=== PATIENT | female | born 1995 | race Caucasian/White ===

== ENCOUNTER 2019-11-02 14:20 | Outpatient (CLI) | payer MEDICARE, SELFPAY ==
[2019-11-02 15:09] LABS: Alanine Aminotransferase 19 U/L (14-59); Albumin Level 3.3 g/dL (3.4-5.0); Alkaline Phosphatase 86 U/L (46-116); Anion Gap 14.4 mmol/L (7-16); Aspartate Amino Transferase 15 U/L (15-37); Bilirubin,Total 0.2 mg/dL (0.00-1.00); Blood Urea Nitrogen 11 mg/dL (7-18); Calcium 9.1 mg/dL (8.5-10.1); Carbon Dioxide 25 mmol/L (21-32); Chloride 104 mmol/L (98-108); Estimated Glomerular Filt Rate > 60; Glucose 162 mg/dL (70-99); Osmolality Calculated 293 mOsm/kg (285-295); Potassium 3.4 mmol/L (3.5-5.1); Sodium 140 mmol/L (136-145); Total Protein 7.8 g/dL (6.4-8.2)
[2019-11-05 13:43] LABS: Beta HCG Quantitative < 1.00 mIU/mL (0-6)
== END 2019-11-02 14:21 | disposition home or self-care (01) ==
PROVIDERS: PCP Internal Medicine; Visit Provider Nurse Practitioner Family
DX: N91.2 Amenorrhea, unspecified (principal); E87.6 Hypokalemia
CPT/HCPCS: 36415; 80053; 81025; 84702

== ENCOUNTER 2019-12-07 14:02 | Outpatient (CLI) | payer MEDICARE, MEDICAID, SELFPAY ==
--- NOTE | ~2019-12-07 | US_ITS ---
EXAMINATION: US pelvic complete w TV DATE: 12/07/2019 15:24 INDICATION: Abdominal pain, weight gain. Possible . Comparison:Ultrasound dated 05/07/2016 TECHNIQUE: Multiple transabdominal and endovaginal sonographic images of the pelvis performed. FINDINGS: The uterus measures 4.7 x 2.7 x 3.8 cm. The endometrial complex measures 5 mm. No evidence for intrauterine . The right ovary measures 1.3 x 0.9 x 1.3 cm and the left ovary is not visualized. There is no free fluid in the pelvis. There are no abnormal masses seen on either side. IMPRESSION: 1. Unremarkable pelvic ultrasound. No evidence for intrauterine . There is a positive pregna ncy test, considerations include very early intrauterine , failed and ectopic preg [place]. Recommend follow-up with ultrasound and serial quantitative beta hCG levels as clinically florencia cated. Reviewed, dictated and finalized at location B. RACTIVE MEDIA DESIGNER IMPRESSION: 1. Unremarkable pelvic ultrasound. No evidence for intrauterine . Ther e is a positive test, considerations include very early intrauterine , failed and ectopic . Recommend follow-up with ult rasound and serial quantitative beta hCG levels as clinically indicated.
== END 2019-12-07 14:03 | disposition home or self-care (01) ==
LOC: CHSIMG 14:04
PROVIDERS: PCP Internal Medicine; Visit Provider Nurse Practitioner Family
DX: R10.9 Unspecified abdominal pain (principal); R63.5 Abnormal weight gain
CPT/HCPCS: 76830; 76856

== ENCOUNTER 2020-02-08 16:49 | Outpatient (CLI) | payer MEDICARE, SELFPAY ==
[2020-02-08 17:20] LABS: Hemoglobin A1C 7.8 % (<5.7)
== END 2020-02-08 16:50 | disposition home or self-care (01) ==
LOC: CHSLAB 16:53
PROVIDERS: PCP Internal Medicine
DX: E11.42 Type 2 diabetes mellitus with diabetic polyneuropathy (principal)
CPT/HCPCS: 36415; 83036

== ENCOUNTER 2020-03-24 14:47 | Outpatient (CLI) | payer MEDICARE, SELFPAY ==
[2020-03-24 14:57] LABS: Basophils Absolute Auto 0.03 K/mm3 (0.00-0.10); Basophils Percent Auto 0.4 % (0.0-1.0); Eosinophils Absolute Auto 0.15 K/mm3 (0.02-0.50); Eosinophils Percent Auto 2.1 % (1.0-6.0); Hematocrit 40.8 % (35.0-49.0); Hemoglobin 13.3 g/dL (12.0-15.0); Immature Granulocyte Absolute 0.02 K/mm3 (0.00-0.00); Immature Granulocyte Percent A 0.3 % (0.0-0.0); Immature Reticulocyte Fraction 9.6 % (2.0-16.52); Lymphocytes Absolute Auto 3.62 K/mm3 (1.10-4.50); Lymphocytes Percent Auto 51.1 % (18.0-42.0); Mean Corpuscular HGB Conc 32.6 g/dL (32.0-36.0); Mean Corpuscular Hemoglobin 26.8 pg (27.0-31.0); Mean Corpuscular Volume 82.1 fL (78.0-102.0); Mean Platelet Volume 10.5 fl (9.2-11.8); Monocytes Absolute Auto 0.53 K/mm3 (0.10-0.90); Monocytes Percent Auto 7.5 % (2.0-11.0); Neutrophils Absolute Auto 2.7 K/mm3 (1.7-7.2); Neutrophils Percent Auto 38.6 % (50.0-70.0); Platelet Count Result 224 K/mm3 (150-420); Red Blood Count 4.97 M/mm3 (4.20-5.40); Red Cell Distribution Width 15.6 % (11.6-14.4); Reticulocyte Hemoglobin Conten 33.4 pg (28.0-35.0); Reticulocyte Percent 1.36 % (0.50-1.50); Reticulocytes Absolute 0.07 M/mm3 (0.02-0.1); White Blood Count 7.1 K/mm3 (4.8-10.8)
[2020-03-24 16:01] LABS: Ferritin 22 ng/mL (8-252); Iron 56 ug/dL (50-170); Percent Iron Saturation 14 % (12-57)
== END 2020-03-24 14:48 | disposition home or self-care (01) ==
LOC: CHSLAB 14:48
PROVIDERS: PCP Internal Medicine; Visit Provider Internal Medicine
DX: E61.1 Iron deficiency (principal)
CPT/HCPCS: 36415; 82728; 83540; 83550; 85025; 85046

== ENCOUNTER 2020-04-15 15:04 | Outpatient (CLI) | payer MEDICARE, SELFPAY ==
[2020-04-15 15:22] LABS: Basophils Absolute Auto 0.02 K/mm3 (0.00-0.10); Basophils Percent Auto 0.3 % (0.0-1.0); Eosinophils Absolute Auto 0.21 K/mm3 (0.02-0.50); Eosinophils Percent Auto 3.3 % (1.0-6.0); Hematocrit 41.3 % (35.0-49.0); Hemoglobin 13.3 g/dL (12.0-15.0); Immature Granulocyte Absolute 0.02 K/mm3 (0.00-0.00); Immature Granulocyte Percent A 0.3 % (0.0-0.0); Lymphocytes Percent Auto 50.6 % (18.0-42.0); Mean Corpuscular HGB Conc 32.2 g/dL (32.0-36.0); Mean Corpuscular Hemoglobin 26.7 pg (27.0-31.0); Mean Corpuscular Volume 82.9 fL (78.0-102.0); Mean Platelet Volume 10.4 fl (9.2-11.8); Monocytes Absolute Auto 0.54 K/mm3 (0.10-0.90); Monocytes Percent Auto 8.5 % (2.0-11.0); Neutrophils Absolute Auto 2.3 K/mm3 (1.7-7.2); Platelet Count Result 270 K/mm3 (150-420); Red Blood Count 4.98 M/mm3 (4.20-5.40); Red Cell Distribution Width 15.1 % (11.6-14.4); White Blood Count 6.3 K/mm3 (4.8-10.8)
[2020-04-15 16:20] LABS: Beta HCG Quantitative < 1.00 mIU/mL (0-6)
== END 2020-04-15 15:05 | disposition home or self-care (01) ==
LOC: CHSLAB 15:05
PROVIDERS: PCP Internal Medicine; Visit Provider Internal Medicine
DX: D64.9 Anemia, unspecified (principal); R63.5 Abnormal weight gain; Z34.00 Encounter for supervision of normal first pregnancy, unspecified trimester
CPT/HCPCS: 36415; 84702; 85025

== ENCOUNTER 2020-06-12 13:49 | Outpatient (CLI) | payer MEDICARE, SELFPAY ==
[2020-06-12 14:00] LABS: Hematocrit 42.8 % (35.0-49.0); Hemoglobin 13.5 g/dL (12.0-15.0)
== END 2020-06-12 13:50 | disposition home or self-care (01) ==
LOC: CHSLAB 13:51
PROVIDERS: PCP Internal Medicine; Visit Provider Internal Medicine
DX: R53.83 Other fatigue (principal); D64.9 Anemia, unspecified
CPT/HCPCS: 36415; 85014; 85018

== ENCOUNTER 2020-11-26 15:19 | Outpatient (CLI) | payer MEDICARE, SELFPAY ==
[2020-11-26 15:37] LABS: Basophils Absolute Auto 0.02 K/mm3 (0.00-0.10); Basophils Percent Auto 0.3 % (0.0-1.0); Eosinophils Absolute Auto 0.11 K/mm3 (0.02-0.50); Eosinophils Percent Auto 1.7 % (1.0-6.0); Hematocrit 41.6 % (35.0-49.0); Hemoglobin 13.1 g/dL (12.0-15.0); Immature Granulocyte Absolute 0.02 K/mm3 (0.00-0.00); Immature Granulocyte Percent A 0.3 % (0.0-0.0); Lymphocytes Absolute Auto 2.38 K/mm3 (1.10-4.50); Lymphocytes Percent Auto 37.4 % (18.0-42.0); Mean Corpuscular HGB Conc 31.5 g/dL (32.0-36.0); Mean Corpuscular Hemoglobin 27.2 pg (27.0-31.0); Mean Corpuscular Volume 86.3 fL (78.0-102.0); Mean Platelet Volume 10.3 fl (9.2-11.8); Monocytes Absolute Auto 0.42 K/mm3 (0.10-0.90); Monocytes Percent Auto 6.6 % (2.0-11.0); Neutrophils Absolute Auto 3.4 K/mm3 (1.7-7.2); Neutrophils Percent Auto 53.7 % (50.0-70.0); Platelet Count Result 241 K/mm3 (150-420); Red Blood Count 4.82 M/mm3 (4.20-5.40); Red Cell Distribution Width 13.9 % (11.6-14.4); White Blood Count 6.4 K/mm3 (4.8-10.8)
[2020-11-26 15:45] LABS: Hemoglobin A1C 6.8 % (<5.7)
[2020-11-26 15:49] LABS: Add Urine Microscopic? YES; Appearance Urine Cloudy (Clear); Bilirubin Urine Negative (Negative); Blood Urine 3+ (Negative); Color Urine Yellow (Yellow); Glucose Urine UA Negative (Negative); Ketones Urine Negative (Negative); Leukocyte Esterase Ur 1+ (Negative); Nitrate Urine Negative (Negative); Protein Urine Negative (Negative); Specific Grav Ur >= 1.030 (1.010-1.020); Urobilinogen Urine 0.2 mg/dL (0.2-1.0); pH Urine 5.5 (5.0-8.0)
[2020-11-26 15:57] LABS: Creatinine Urine 266.61 mg/dL (40-278); MALB Creatinine Ratio 12.1 mg/g (0-30); Microalbumin Urine Random 32.3 mg/L
[2020-11-26 16:01] LABS: WBC Clumps Urine Present /hpf; WBC Urine 16-20 /hpf (0-3)
[2020-11-26 16:02] LABS: Bacteria Urine 4+ /hpf; Squamous Epithelial Cell Urine Many /hpf (Few)
[2020-11-26 17:10] LABS: Alanine Aminotransferase 23 U/L (14-59); Albumin Level 3.4 g/dL (3.4-5.0); Alkaline Phosphatase 99 U/L (46-116); Anion Gap 11 mmol/L (8-16); Aspartate Amino Transferase 12 U/L (15-37); Bilirubin,Total 0.2 mg/dL (0.00-1.00); Blood Urea Nitrogen 10 mg/dL (7-18); Calcium 9.5 mg/dL (8.5-10.1); Carbon Dioxide 25 mmol/L (21-32); Chloride 102 mmol/L (98-108); Estimated Glomerular Filt Rate > 60; Glucose 115 mg/dL (70-99); Osmolality Calculated 286 mOsm/kg (285-295); Potassium 4.1 mmol/L (3.5-5.1); Sodium 138 mmol/L (136-145); Thyroid Stimulating Hormone 1.34 uIU/mL (0.36-3.74); Total Protein 7.7 g/dL (6.4-8.2)
== END 2020-11-26 15:20 | disposition home or self-care (01) ==
LOC: CHSLAB 15:20
PROVIDERS: PCP Internal Medicine; Visit Provider Internal Medicine
DX: E11.9 Type 2 diabetes mellitus without complications (principal); I10 Essential (primary) hypertension
CPT/HCPCS: 36415; 80053; 81001; 82043; 83036; 84443; 85025

== ENCOUNTER 2021-01-04 22:49 | Emergency (ER) | payer MEDICARE, MEDICAID, SELFPAY ==
[2021-01-04 23:18] VITALS: BP 116/77; PULSE 88; RESP 18; TEMP 36.7; O2SAT 98
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
[2021-01-04 23:54] LABS: Add Urine Microscopic? YES; Appearance Urine Cloudy (Clear); Bilirubin Urine Negative (Negative); Blood Urine Negative (Negative); Color Urine Yellow (Yellow); Glucose Urine UA Trace (Negative); Ketones Urine Negative (Negative); Leukocyte Esterase Ur 1+ (Negative); Nitrate Urine Negative (Negative); Protein Urine Trace (Negative); Specific Grav Ur 1.015 (1.010-1.020)
[2021-01-05 00:03] LABS: Amorphous Sediment Urine Moderate; Bacteria Urine Trace /hpf; RBC Urine None seen /hpf (0-2); Squamous Epithelial Cell Urine Few /hpf (Few)
[2021-01-05] MEDS: KETOROLAC 30 MG/ML VIAL (*BKC) IM (00:05)
[2021-01-05 00:28] VITALS: BP 110/78; PULSE 81; RESP 20; O2SAT 97
== END 2021-01-05 00:30 | disposition home or self-care (01) ==
PROVIDERS: Emergency Provider Family Medicine; PCP Internal Medicine
DX: S30.1XXA Contusion of abdominal wall, initial encounter (principal); W50.1XXA Accidental kick by another person, initial encounter
CPT/HCPCS: 81001; 96372; 99283; J1885

== ENCOUNTER 2021-02-23 13:58 | Outpatient (CLI) | payer MEDICARE, SELFPAY | END 2021-02-23 13:59 | disposition home or self-care (01) | LOC: CHSLAB 14:00 | PROVIDERS: PCP Internal Medicine; Visit Provider Internal Medicine | DX: E11.9 Type 2 diabetes mellitus without complications (principal) | CPT/HCPCS: 36415; 83036 ==

== ENCOUNTER 2021-05-26 12:17 | Outpatient (CLI) | payer MEDICARE, SELFPAY ==
[2021-05-26 12:48] LABS: Creatinine Urine 255.11 mg/dL (40-278); Hemoglobin A1C 7.4 % (<5.7); MALB Creatinine Ratio 5.6 mg/g (0-30); Microalbumin Urine Random 14.3 mg/L
[2021-05-26 13:49] LABS: Alanine Aminotransferase 14 U/L (14-59); Albumin Level 3.4 g/dL (3.4-5.0); Alkaline Phosphatase 95 U/L (46-116); Anion Gap 10 mmol/L (8-16); Aspartate Amino Transferase 15 U/L (15-37); Bilirubin,Total 0.2 mg/dL (0.00-1.00); Blood Urea Nitrogen 10 mg/dL (7-18); Calcium 9.2 mg/dL (8.5-10.1); Carbon Dioxide 27 mmol/L (21-32); Chloride 101 mmol/L (98-108); Cholesterol 168 mg/dL (0-200); Estimated Glomerular Filt Rate > 60; Glucose 151 mg/dL (70-99); HDL Direct 72 mg/dL (40-60); LDL Cholesterol Calculated 65 mg/dL (<130); Osmolality Calculated 288 mOsm/kg (285-295); Potassium 3.9 mmol/L (3.5-5.1); Sodium 138 mmol/L (136-145); Thyroid Stimulating Hormone 4.94 uIU/mL (0.36-3.74); Total Protein 8.4 g/dL (6.4-8.2); Triglycerides 154 mg/dL (0-150)
== END 2021-05-26 12:18 | disposition home or self-care (01) ==
LOC: CHSLAB 12:19
PROVIDERS: PCP Internal Medicine; Visit Provider Internal Medicine
DX: E11.9 Type 2 diabetes mellitus without complications (principal)
CPT/HCPCS: 36415; 80053; 80061; 82043; 83036; 84443

== ENCOUNTER 2021-07-17 15:35 | Outpatient (CLI) | payer MEDICARE, MEDICAID, SELFPAY ==
--- NOTE | ~2021-07-17 | XR_ITS ---
EXAMINATION: XR ankle LT min 3V DATE: 07/17/2021 16:13 INDICATION: Left ankle pain. TECHNIQUE: 4 views of left ankle were obtained. COMPARISON: Left ankle radiographs 10/20/2018 FINDINGS: Bone alignment is normal. No fracture. Joint spaces are well maintained. IMPRESSION: 1. Normal left ankle. Reviewed, dictated and finalized at location A. IMPRESSION: 1. Normal left ankle.
== END 2021-07-17 15:36 | disposition home or self-care (01) ==
LOC: CHSIMG 15:38
PROVIDERS: PCP Internal Medicine; Visit Provider Internal Medicine
DX: S99.912A Unspecified injury of left ankle, initial encounter (principal)
CPT/HCPCS: 73610

== ENCOUNTER 2021-08-31 07:41 | Emergency (ER) | payer MEDICARE, MEDICAID, SELFPAY ==
--- NOTE | ~2021-08-31 | XR_ITS ---
EXAMINATION: XR chest 2V 08/31/2021 08:26 INDICATION: Chest pain PROCEDURE: 2 view chest COMPARISON: Comparison to multiple prior studies sequentially, with oldest reviewed study dated 01/2014. FINDINGS: The lungs are clear. The cardiomediastinal silhouette is within normal limits. There are no pleural effusions. There is no pneumothorax suspected. IMPRESSION: 1: NO ACUTE CARDIOPULMONARY DISEASE. Reviewed, dictated and finalized at location B. MAINTENANCE
--- NOTE | 2021-08-31 07:47 | ED.CHESTPAIN ---
HPI - Chest Pain General Chief Complaint: Dizziness Stated Complaint: ambulance Source: patient, EMS and RN notes reviewed Mode of arrival: ambulatory Limitations: no limitations History of Present Illness complaint: chest pain and chest discomfort Onset (ago): hour(s) (1.5) Timing of current episode: constant Onset: during rest Pain location: substernal and left chest Pain radiation: none Severity: moderate Quality: aching and dull Relieving factors: nothing Exacerbating factors: nothing Associated symptoms: dyspnea Treatment prior to arrival: aspirin (by ems) Related Data Home Medications Medication Instructions Recorded Confirmed gabapentin 300 mg PO DAILY 08/26/19 08/26/19 levothyroxine 25 mcg PO DAILY 08/26/19 08/26/19 linagliptin [Tradjenta] 5 mg PO DAILY 08/26/19 08/26/19 metformin 500 mg PO BID 08/26/19 08/26/19 norgestimate-ethinyl estradiol 1 tablet PO DAILY 08/26/19 08/26/19 [Vxn-Ye-Congvlrq] pioglitazone 15 mg PO DAILY 08/26/19 08/26/19 ranitidine HCl 300 mg PO DAILY 08/26/19 08/26/19 topiramate 100 mg PO DAILY 08/26/19 08/26/19 Allergies Allergy/AdvReac Type Severity Reaction Status Date / Time adhesive Allergy Unknown Rash Verified 10/16/15 17:13 amoxicillin Allergy Unknown Unknown Verified 08/26/19 18:44 dexmethylphenidate Allergy Unknown aggressiven Verified 08/12/16 11:54 ess diclofenac Allergy Unknown abdominal Verified 08/12/16 11:55 pain Penicillins Allergy Unknown Unknown Verified 08/26/19 18:44 Review of Systems Review of Systems: All systems reviewed & are unremarkable except as noted in HPI and below Cardiovascular: Cardiovascular: Denies rapid heart rate Gastrointestinal: Gastrointestinal: Denies nausea and Denies vomiting Endocrine: Endocrine: Denies excessive sweating PMFSH Past Medical History Medical History (Updated 08/31/21 @ 09:17 by Manuel Medrano MD) Anxiety Depression GERD (gastroesophageal reflux disease) Hypothyroidism Morbid obesity Scoliosis Type 2 diabetes mellitus Surgical History Surgical History History of axillary surgery History of tonsillectomy Family History Family History Father Hypertension Family history of elevated blood lipids Family history of coronary artery disease Family history of type 2 diabetes mellitus Mother Hypertension Family history of elevated blood lipids Family history of type 2 diabetes mellitus Social History Social History Smoking status: Never smoker Alcohol intake: current Gender identity (if verbalized by the patient): Female Course Vital Signs Vital signs: Vital Signs Temperature 37.0 C 08/31/21 07:52 Pulse Rate 97 08/31/21 07:52 Respiratory Rate 20 08/31/21 07:52 Blood Pressure 130/83 08/31/21 07:52 Pulse Oximetry 98 08/31/21 07:52 Temperature 37.0 C 08/31/21 07:52 Pulse Rate 82 08/31/21 09:24 Respiratory Rate 16 08/31/21 09:24 Blood Pressure 116/85 08/31/21 09:24 Pulse Oximetry 98 08/31/21 09:24 MDM - Chest Pain Lab Data Attestation: I reviewed the patient's lab results. Result diagrams: 08/31/21 08:07 08/31/21 08:07 Labs: Lab Results 08/31/21 08/31/21 08/31/21 Range/Units 08:07 08:07 08:07 WBC 7.7 (4.8-10.8) K/mm3 RBC 4.51 (4.20-5.40) M/mm3 Hgb 12.4 (12.0-15.0) g/dL Hct 38.8 (35.0-49.0) % MCV 86.0 (78.0-102.0) fL MCH 27.5 (27.0-31.0) pg MCHC 32.0 (32.0-36.0) g/dL RDW 14.6 H (11.6-14.4) % Plt Count 239 (150-420) K/mm3 MPV 10.5 (9.2-11.8) fl Immature Gran % (Auto) 0.4 H (0.0-0.0) % Neut % (Auto) 38.2 L (50.0-70.0) % Lymph % (Auto) 48.3 H (18.0-42.0) % [place] % (Auto) 7.6 (2.0-11.0) % Eos % (Auto) 5.1 (1.0-6.0) % Baso % (Auto) 0.4 (0.0-1.0) % Lymph # (Auto) 3.
--- NOTE | 2021-08-31 07:48 | ECG_ITS ---
Measurements Intervals [place] Rate: 81 P: 57 MO: 137 QRS: 99 QRSD: 85 T: 0 QT: 360 QTc: 420 Interpretive Statements SINUS RHYTHM RIGHT AXIS DEVIATION BORDERLINE ST-T WAVE ABNORMALITY- INFERIOR LEADS BORDERLINE ECG Electronically Signed On 08-31-2021 8:24:42 CAR USHER by Noel Sanz D.O.
[2021-08-31 07:52] VITALS: BP 130/83; PULSE 97; RESP 20; TEMP 37; O2SAT 98
--- NOTE | 2021-08-31 08:01 | PC.NURSE ---
Lab notified of orders for blood work.
[2021-08-31 08:13] LABS: Basophils Absolute Auto 0.03 K/mm3 (0.00-0.10); Basophils Percent Auto 0.4 % (0.0-1.0); Eosinophils Absolute Auto 0.39 K/mm3 (0.02-0.50); Eosinophils Percent Auto 5.1 % (1.0-6.0); Hematocrit 38.8 % (35.0-49.0); Hemoglobin 12.4 g/dL (12.0-15.0); Immature Granulocyte Absolute 0.03 K/mm3 (0.00-0.00); Immature Granulocyte Percent A 0.4 % (0.0-0.0); Lymphocytes Absolute Auto 3.73 K/mm3 (1.10-4.50); Lymphocytes Percent Auto 48.3 % (18.0-42.0); Mean Corpuscular Hemoglobin 27.5 pg (27.0-31.0); Mean Platelet Volume 10.5 fl (9.2-11.8); Monocytes Absolute Auto 0.59 K/mm3 (0.10-0.90); Monocytes Percent Auto 7.6 % (2.0-11.0); Neutrophils Percent Auto 38.2 % (50.0-70.0); Platelet Count Result 239 K/mm3 (150-420); Red Blood Count 4.51 M/mm3 (4.20-5.40); Red Cell Distribution Width 14.6 % (11.6-14.4); White Blood Count 7.7 K/mm3 (4.8-10.8)
[2021-08-31 08:14] VITALS: BP 109/71; PULSE 80; RESP 16; O2SAT 100
[2021-08-31 08:26] LABS: Prothrombin Time 10.9 Seconds (9.50-12.10)
[2021-08-31 08:32] LABS: Alanine Aminotransferase 27 U/L (14-59); Albumin Level 2.9 g/dL (3.4-5.0); Alkaline Phosphatase 81 U/L (46-116); Anion Gap 13 mmol/L (8-16); Aspartate Amino Transferase 19 U/L (15-37); Bilirubin,Total 0.2 mg/dL (0.00-1.00); Blood Urea Nitrogen 12 mg/dL (7-18); Calcium 8.6 mg/dL (8.5-10.1); Carbon Dioxide 24 mmol/L (21-32); Chloride 104 mmol/L (98-108); Estimated CRCL calculation 102 ml/min; Estimated Glomerular Filt Rate 60; Glucose 108 mg/dL (70-99); Osmolality Calculated 292 mOsm/kg (285-295); Potassium 2.9 mmol/L (3.5-5.1); Sodium 141 mmol/L (136-145); Total Protein 7.2 g/dL (6.4-8.2); Troponin I 5.1 ng/L (0.00-60.4)
[2021-08-31 09:23] LABS: Glucose Point of Care 92 mg/dl (65-105)
[2021-08-31 09:24] VITALS: BP 116/85; PULSE 82; RESP 16; O2SAT 98
== END 2021-08-31 09:32 | disposition home or self-care (01) ==
PROVIDERS: Emergency Provider Emergency Medicine; PCP Internal Medicine
DX: R07.89 Other chest pain (principal); E87.6 Hypokalemia; K21.9 Gastro-esophageal reflux disease without esophagitis; E03.9 Hypothyroidism, unspecified; E11.9 Type 2 diabetes mellitus without complications
CPT/HCPCS: 36415; 71046; 80053; 82948; 84484; 85025; 85610; 93005; 99283; 99284; A9270

== ENCOUNTER 2021-11-20 15:34 | Outpatient (CLI) | payer MEDICARE, SELFPAY ==
[2021-11-20 16:27] LABS: Hemoglobin A1C 7.1 % (<5.7)
[2021-11-20 16:40] LABS: Alanine Aminotransferase 23 U/L (14-59); Albumin Level 3.4 g/dL (3.4-5.0); Alkaline Phosphatase 86 U/L (46-116); Anion Gap 11 mmol/L (8-16); Aspartate Amino Transferase 25 U/L (15-37); Bilirubin,Total 0.3 mg/dL (0.00-1.00); Blood Urea Nitrogen 12 mg/dL (7-18); Calcium 9.1 mg/dL (8.5-10.1); Carbon Dioxide 26 mmol/L (21-32); Chloride 100 mmol/L (98-108); Estimated Glomerular Filt Rate > 60; Glucose 155 mg/dL (70-99); Osmolality Calculated 286 mOsm/kg (285-295); Potassium 3.6 mmol/L (3.5-5.1); Sodium 137 mmol/L (136-145); Total Protein 8.3 g/dL (6.4-8.2)
== END 2021-11-20 15:35 | disposition home or self-care (01) ==
LOC: CHSLAB 15:36
PROVIDERS: PCP Internal Medicine; Visit Provider Internal Medicine
DX: E11.9 Type 2 diabetes mellitus without complications (principal)
CPT/HCPCS: 36415; 80053; 83036

== ENCOUNTER 2021-12-29 04:59 | Emergency (ER) | payer MEDICARE, MEDICAID, SELFPAY ==
--- NOTE | ~2021-12-29 | CT_ITS ---
EXAMINATION: CTA chest PE protocol DATE: 12/29/2021 07:16 INDICATION: Shortness of breath. Anterior central left chest pain TECHNIQUE: Computed tomography (CT) pulmonary angiogram of the chest was performed with 100 mL Omnipa que-350 intravenous contrast. Additional 3D reconstructions utilizing coronal maximum intensity proje ction (MIP) were performed. Automated exposure control and iterative reconstruction technique were em ployed. The dose-length product was 734.13 mGy-cm. COMPARISON: None FINDINGS: Excellent contrast opacification of the pulmonary arteries. There is mild streak artifact from dense contrast in the superior vena cava and right atrium. No significant motion artifact yielding diagnost ic quality study which demonstrates no pulmonary embolism. Mild peripherally emphysematous changes in the posterior lower lobes. No pneumonia, pulmonary edema, pleural effusion or pneumothorax. Heart si ze is normal. No pericardial effusion. Thoracic aorta is normal in caliber with no dissection. No pat hologically enlarged thoracic lymphadenopathy. Diffuse hepatic steatosis. Thoracic dextroscoliosis. IMPRESSION: 1. No pulmonary embolism or other acute cardiopulmonary disease. 2. Mild emphysematous changes in the bilateral posterior lower lobes which given patient age, lack of smoking history and atypical distribution could be related to asthma, sequela of prior infection or alpha-1 antitrypsin deficiency. Reviewed, dictated and finalized at location A. IMPRESSION: 1. No pulmonary embolism or other acute cardiopulmonary disease. 2. Mild emphysematous changes in the bilateral posterior lower lobes which give n patient age, lack of smoking history and atypical distribution could be relat ed to asthma, sequela of prior infection or alpha-1 antitrypsin deficiency.
[2021-12-29 04:59] VITALS: BP 139/107; PULSE 96; RESP 20; TEMP 36; O2SAT 100
--- NOTE | 2021-12-29 05:11 | ECG_ITS ---
Measurements Intervals [place] Rate: 83 P: 45 IN: 132 QRS: 56 QRSD: 84 T: 6 QT: 343 QTc: 405 Interpretive Statements SINUS RHYTHM NORMAL ECG COMPARED TO ECG 08/31/2021 07:52:34 NO SIGNIFICANT CHANGES Electronically Signed On 12-29-2021 17:45:38 CDT by Ab Welch M.D.
--- NOTE | 2021-12-29 05:21 | ED.CHESTPAIN ---
HPI - Chest Pain General Chief Complaint: Chest Pain <Ab Gardner MD - Last Filed: 12/29/21 07:01> Stated Complaint: SICKNESS <Ab Gardner MD - Last Filed: 12/29/21 07:01> Time Seen by Provider: 12/29/21 05:21 <Ab Gardner MD - Last Filed: 12/29/21 07:01> Source: patient and EMS <Ab Gardner MD - Last Filed: 12/29/21 07:01> Mode of arrival: EMS <Ab Gardner MD - Last Filed: 12/29/21 07:01> Limitations: no limitations <Ab Gardner MD - Last Filed: 12/29/21 07:01> History of Present Illness HPI narrative: this is a 26-year-old female with history of diabetes currently on control nonsmoker has a family history of heart attack in her father, presents with chest pain mid sternum states that radiates into her left arm, that she describes as being 8/10, with some shortness of breath with no diaphoresis no nausea vomiting no history of heart disease. Patient has no abdominal pain no dysuria no flank pain no lower back pain. <Ab Gardner MD - Last Filed: 12/29/21 07:01> MD complaint: chest pain <Ab Gardner MD - Last Filed: 12/29/21 07:01> Onset (ago): hour(s) <Ab Gardner MD - Last Filed: 12/29/21 07:01> Timing of current episode: constant <Ab Gardner MD - Last Filed: 12/29/21 07:01> Prior episodes: No <Ab Gardner MD - Last Filed: 12/29/21 07:01> Onset: during rest <Ab Gardner MD - Last Filed: 12/29/21 07:01> Pain location: substernal <Ab Gardner MD - Last Filed: 12/29/21 07:01> Pain radiation: left arm <Ab Gardner MD - Last Filed: 12/29/21 07:01> Severity: mild <Ab Gardner MD - Last Filed: 12/29/21 07:01> Quality: aching <Ab Gardner MD - Last Filed: 12/29/21 07:01> Associated symptoms: dyspnea <Ab Gardner MD - Last Filed: 12/29/21 07:01> Related Data Home Medications: Home Medications Medication Instructions Recorded Confirmed gabapentin 300 mg PO DAILY 08/26/19 12/29/21 levothyroxine 25 mcg PO DAILY 08/26/19 12/29/21 linagliptin [Tradjenta] 5 mg PO DAILY 08/26/19 12/29/21 metformin 500 mg PO BID 08/26/19 12/29/21 pioglitazone 15 mg PO DAILY 08/26/19 12/29/21 topiramate 100 mg PO DAILY 08/26/19 12/29/21 norgestimate-ethinyl estradiol See Rx Instructions .ROUTE .COMPLEX 12/29/21 12/29/21 [[id number]-[id number]] <Ab Gardner MD - Last Filed: 12/29/21 07:01> Allergies/Adverse Reactions: Allergies Allergy/AdvReac Type Severity Reaction Status Date / Time adhesive Allergy Unknown Rash Verified 12/29/21 05:54 amoxicillin Allergy Unknown Rash Verified 12/29/21 05:54 dexmethylphenidate Allergy Unknown aggressiven Verified 12/29/21 05:54 ess diclofenac Allergy Unknown abdominal Verified 12/29/21 05:54 pain Penicillins Allergy Unknown Rash Verified 12/29/21 05:54 <Ab Gardner MD - Last Filed: 12/29/21 07:01> Review of Systems Review of Systems: All systems reviewed & are unremarkable except as noted in HPI and below <Ab Gardner MD - Last Filed: 12/29/21 07:01> PMFSH Past Medical History Medical History: Medical History Anxiety Depression GERD (gastroesophageal reflux disease) Hypothyroidism Morbid obesity Scoliosis Type 2 diabetes mellitus <Ab Gardner MD - Last Filed: 12/29/21 07:01> Surgical History Surgical History: Surgical History History of axillary surgery History of tonsillectomy <Ab Gardner MD - Last Filed: 12/29/21 07:01> Family History Family History: Family History Father Hypertension Family history of elevated blood lipids Family history of coronary artery disease Family history of type 2 diabetes mellitus Mother Hyper
[2021-12-29 05:34] LABS: Basophils Absolute Auto 0.03 K/mm3 (0.00-0.10); Basophils Percent Auto 0.4 % (0.0-1.0); Eosinophils Absolute Auto 0.25 K/mm3 (0.02-0.50); Eosinophils Percent Auto 3.3 % (1.0-6.0); Immature Granulocyte Absolute 0.02 K/mm3 (0.00-0.00); Immature Granulocyte Percent A 0.3 % (0.0-0.0); Lymphocytes Absolute Auto 2.35 K/mm3 (1.10-4.50); Lymphocytes Percent Auto 31.1 % (18.0-42.0); Mean Corpuscular HGB Conc 32.5 g/dL (32.0-36.0); Mean Corpuscular Hemoglobin 28.2 pg (27.0-31.0); Mean Corpuscular Volume 86.8 fL (78.0-102.0); Mean Platelet Volume 10.1 fl (9.2-11.8); Monocytes Absolute Auto 0.64 K/mm3 (0.10-0.90); Monocytes Percent Auto 8.5 % (2.0-11.0); Neutrophils Absolute Auto 4.3 K/mm3 (1.7-7.2); Neutrophils Percent Auto 56.4 % (50.0-70.0); Platelet Count Result 266 K/mm3 (150-420); Red Blood Count 4.61 M/mm3 (4.20-5.40); Red Cell Distribution Width 13.5 % (11.6-14.4); White Blood Count 7.6 K/mm3 (4.8-10.8)
[2021-12-29] MEDS: SODIUM CHLORIDE 0.9% IV 500 ML 999 ML IV CONT (05:37)
[2021-12-29] MEDS: ACETAMINOPHEN 500 MG TABLET 1000 MG PO (05:38)
[2021-12-29] MEDS: ALPRAZolam (*CRX) 0.5 MG TABLET PO (05:38)
[2021-12-29 05:45] VITALS: O2SAT 99
--- NOTE | 2021-12-29 05:45 | PC.NURSE ---
bedside blood glucose 69, md shi updated and okay to give pt apple juice - 236ml
[2021-12-29 05:51] LABS: Alanine Aminotransferase 21 U/L (14-59); Alkaline Phosphatase 83 U/L (46-116); Anion Gap 11 mmol/L (8-16); Aspartate Amino Transferase 14 U/L (15-37); Bilirubin,Total 0.2 mg/dL (0.00-1.00); Blood Urea Nitrogen 9 mg/dL (7-18); Calcium 8.9 mg/dL (8.5-10.1); Carbon Dioxide 24 mmol/L (21-32); Chloride 102 mmol/L (98-108); Estimated CRCL calculation 81 ml/min; Estimated Glomerular Filt Rate 59; Glucose 116 mg/dL (70-99); Lipase 96 U/L (73-393); Osmolality Calculated 283 mOsm/kg (285-295); Potassium 3.5 mmol/L (3.5-5.1); Sodium 137 mmol/L (136-145); Total Protein 8.1 g/dL (6.4-8.2)
[2021-12-29 05:52] LABS: D Dimer 1.07 mg/L (0.19-0.50)
[2021-12-29 05:53] LABS: Troponin I < 4.0 ng/L (0.00-60.4)
[2021-12-29 06:21] LABS: Add Urine Microscopic? YES; Appearance Urine Sl Cloudy (Clear); Bilirubin Urine 1+ (Negative); Blood Urine Negative (Negative); Color Urine Dark Yellow (Yellow); Glucose Urine UA Negative (Negative); Ketones Urine 1+ (Negative); Leukocyte Esterase Ur 1+ (Negative); Nitrate Urine Negative (Negative); Protein Urine 1+ (Negative)
[2021-12-29 06:26] LABS: RBC Urine 0-2 /hpf (0-2); Squamous Epithelial Cell Urine Moderate /hpf (Few)
[2021-12-29 06:27] LABS: Bacteria Urine 1+ /hpf; Mucus Urine Heavy /lpf; Pregnancy On Board Control Positive; Urine Pregnancy Test Negative
[2021-12-29 08:16] VITALS: BP 104/75; PULSE 86; RESP 16; TEMP 36.6; O2SAT 98
== END 2021-12-29 08:18 | disposition home or self-care (01) ==
PROVIDERS: Emergency Medicine; Emergency Provider Emergency Medicine; PCP Internal Medicine
DX: R07.89 Other chest pain (principal)
CPT/HCPCS: 36415; 71275; 80053; 81001; 81025; 83690; 84484; 85025; 85380; 93005; 96360; 99284; A9270; J7040; Q9967

== ENCOUNTER 2022-01-04 14:29 | Outpatient (CLI) | payer MEDICARE, SELFPAY ==
[2022-01-04 16:07] LABS: Creatine Kinase 56 U/L (26-192); NT Pro B Type Natriuretic Pept 36 pg/mL (0-125)
[2022-01-04 16:09] LABS: Troponin I < 4.0 ng/L (0.00-60.4)
== END 2022-01-04 14:30 | disposition home or self-care (01) ==
LOC: CHSLAB 14:30
PROVIDERS: PCP Internal Medicine; Visit Provider Internal Medicine
DX: J43.9 Emphysema, unspecified (principal); R07.9 Chest pain, unspecified; R06.00 Dyspnea, unspecified
CPT/HCPCS: 36415; 82550; 82553; 83880; 84484

== ENCOUNTER 2022-01-15 10:12 | Outpatient (CLI) | payer MEDICARE, SELFPAY ==
--- NOTE | 2022-01-15 11:29 | PCRCNOTE ---
Unable to complete PFT at this time, pt. was registered and began PFT testing, after about 5 minutes began c/o chest pain. We paused testing, she stated chest pain subsided. Stated she does have intermittent chest pain occasionally. We began testing again. Pt got up to use the restroom. Once she returned, she c/o lightheadedness and began to lose consciousness. I was able to wake her back up, at this time she stated she checked her blood sugar at 4 or 5 am and it was around 100. She hadn't eaten anything, she passed out again. Sats were 92-94% on room air, heart rate 108. I called a rapid response due to pt c/o chest pain and loss of consciousness.
== END 2022-01-15 10:13 | disposition home or self-care (01) ==
LOC: CHSCARD 10:13
PROVIDERS: PCP Internal Medicine; Visit Provider Internal Medicine
DX: J43.9 Emphysema, unspecified (principal); Z53.8 Procedure and treatment not carried out for other reasons
CPT/HCPCS: 99199

== ENCOUNTER 2022-01-15 11:06 | Emergency (ER) | payer MEDICARE, MEDICAID, SELFPAY ==
--- NOTE | ~2022-01-15 | CT_ITS ---
EXAMINATION: CTA chest PE protocol DATE: 01/15/2022 12:38 INDICATION: Shortness of breath, chest pressure TECHNIQUE: Computed tomography angiography (CTA) of the chest was performed with 100 mL Omnipaque-350 intravenous contrast timed to evaluate the pulmonary arteries. Coronal maximum intensity projection 3D-reconstructions were created by the technologist. The dose-length product (DLP) was 655.08 mGy-cm. Automated exposure control and iterative reconstruction technique were employed. COMPARISON: None. FINDINGS: Respiratory motion artifact somewhat limits the examination. The pulmonary arteries are wel l-opacified. No pulmonary embolism is identified. The lungs are free of acute opacities. There is no pleural effusion or pneumothorax. No pathologically enlarged thoracic lymph nodes are identified. The heart size is normal. There is S-shaped curvature of the spine. IMPRESSION: 1. No pulmonary embolism or acute cardiopulmonary abnormality. Reviewed, dictated and finalized at location A.
--- NOTE | 2022-01-15 11:12 | ED.SYNCOPE ---
HPI - Syncope General Chief Complaint: Syncope Stated Complaint: RAPID RESPONSE FROM PFT Time Seen by Provider: 01/15/22 11:08 Source: patient Mode of arrival: wheelchair Limitations: no limitations History of Present Illness HPI narrative: rapid response called to cardiopulmonary testing outpatient area. computer operations technician reports that patient was doing PFT testing and then stated she needed to go to the bathroom. When she returned from the bathroom she said she felt lightheaded and then passed out for just a few seconds. The tech was able to shake and shout patient responded but still felt weak. During the test she had stated that she was having some chest pain. Mostly chest pressure with some nausea but no vomiting or diaphoresis. Patient continues to feel chest pressure short of breath and lightheaded. She reported that she is a diabetic and that her blood sugar was 100 this morning she did not eat breakfast. In the cardiopulmonary testing area she was given some orange juice and her blood sugar check showed to be 110. I responded to the rapid response and was there during the episode where she appeared pale but easily interactive and was able to stand pivot and moving to wheelchair without difficulty. MD complaint: loss of consciousness and felt faint Onset (ago): minute(s) (5) -: second(s) Prodromal symptoms: lightheaded and chest pain (pressure) Witnessed: Yes - by Bystander Context: after urination Injuries sustained associated with event: none Current symptoms: lightheaded Treatments prior to arrival: other (orange juice) Related Data Home Medications Medication Instructions Recorded Confirmed gabapentin 300 mg PO DAILY 08/26/19 01/15/22 levothyroxine 25 mcg PO DAILY 08/26/19 01/15/22 linagliptin [Tradjenta] 5 mg PO DAILY 08/26/19 01/15/22 metformin 500 mg PO BID 08/26/19 01/15/22 pioglitazone 15 mg PO DAILY 08/26/19 01/15/22 topiramate 100 mg PO DAILY 08/26/19 01/15/22 norgestimate-ethinyl estradiol See Rx Instructions .ROUTE .COMPLEX 12/29/21 01/15/22 [[id number]] Allergies Allergy/AdvReac Type Severity Reaction Status Date / Time adhesive Allergy Unknown Rash Verified 12/29/21 05:54 amoxicillin Allergy Unknown Rash Verified 12/29/21 05:54 dexmethylphenidate Allergy Unknown aggressiven Verified 12/29/21 05:54 ess Penicillins Allergy Unknown Rash Verified 12/29/21 05:54 Review of Systems Review of Systems: All systems reviewed & are unremarkable except as noted in HPI and below Constitutional: Constitutional: Denies chills and Denies fever(s) Cardiovascular: Cardiovascular: Reports chest pain (during PFT exam) Respiratory: Respiratory: Denies dyspnea Gastrointestinal: Gastrointestinal: Reports nausea and Denies vomiting PMFSH Past Medical History Medical History Anxiety Depression GERD (gastroesophageal reflux disease) Hypothyroidism Morbid obesity Scoliosis Type 2 diabetes mellitus Surgical History Surgical History History of axillary surgery History of tonsillectomy Family History Family History Father Hypertension Family history of elevated blood lipids Family history of coronary artery disease Family history of type 2 diabetes mellitus Mother Hypertension Family history of elevated blood lipids Family history of type 2 diabetes mellitus Social History Social History Smoking status: Never smoker Alcohol intake: current Gender identity (if verbalized by the patient): Female Exam Const: General: healthy appearing, no acute distress and alert Nutritional Appearance: well nourished and obese morbidly obese Orientation/consciousness: patient oriented x3 Other: A female nurse in room during examination. HENMT: Head: normal to inspection Ears: exte
--- NOTE | 2022-01-15 11:13 | ECG_ITS ---
Measurements Intervals [place] Rate: 100 P: 5 VT: 132 QRS: -9 QRSD: 101 T: 45 QT: 325 QTc: 420 Interpretive Statements SINUS TACHYCARDIA OTHERWISE NORMAL EKG COMPARED TO ECG 12/29/2021 05:25:38 SINUS TACHYCARDIA NOW PRESENT Electronically Signed On 01-17-2022 11:09:02 CDT by Kj Ruelas M.D.
[2022-01-15 11:23] LABS: Basophils Absolute Auto 0.05 K/mm3 (0.00-0.10); Basophils Percent Auto 0.5 % (0.0-1.0); Eosinophils Absolute Auto 0.61 K/mm3 (0.02-0.50); Eosinophils Percent Auto 6.6 % (1.0-6.0); Hematocrit 40.3 % (35.0-49.0); Hemoglobin 12.9 g/dL (12.0-15.0); Immature Granulocyte Absolute 0.07 K/mm3 (0.00-0.00); Immature Granulocyte Percent A 0.8 % (0.0-0.0); Lymphocytes Absolute Auto 3.09 K/mm3 (1.10-4.50); Lymphocytes Percent Auto 33.3 % (18.0-42.0); Mean Corpuscular Hemoglobin 27.4 pg (27.0-31.0); Mean Corpuscular Volume 85.6 fL (78.0-102.0); Mean Platelet Volume 9.7 fl (9.2-11.8); Monocytes Absolute Auto 0.72 K/mm3 (0.10-0.90); Monocytes Percent Auto 7.8 % (2.0-11.0); Neutrophils Absolute Auto 4.8 K/mm3 (1.7-7.2); Platelet Count Result 348 K/mm3 (150-420); Red Blood Count 4.71 M/mm3 (4.20-5.40); Red Cell Distribution Width 13.3 % (11.6-14.4); White Blood Count 9.3 K/mm3 (4.8-10.8)
[2022-01-15 11:36] VITALS: BP 132/61; PULSE 101; RESP 18; TEMP 36.7; O2SAT 97
[2022-01-15 11:36] LABS: Alanine Aminotransferase 28 U/L (14-59); Alkaline Phosphatase 86 U/L (46-116); Anion Gap 10 mmol/L (8-16); Aspartate Amino Transferase 21 U/L (15-37); Bilirubin,Total 0.2 mg/dL (0.00-1.00); Blood Urea Nitrogen 8 mg/dL (7-18); Calcium 9.1 mg/dL (8.5-10.1); Carbon Dioxide 27 mmol/L (21-32); Chloride 100 mmol/L (98-108); Estimated Glomerular Filt Rate 55; Glucose 112 mg/dL (70-99); Osmolality Calculated 283 mOsm/kg (285-295); Potassium 2.8 mmol/L (3.5-5.1); Sodium 137 mmol/L (136-145); Total Protein 9.1 g/dL (6.4-8.2)
[2022-01-15 11:55] VITALS: BP 129/81; PULSE 98; RESP 18; O2SAT 99
[2022-01-15 11:59] LABS: D Dimer 2.15 mg/L (0.19-0.50)
--- NOTE | 2022-01-15 11:59 | PC.NURSE ---
pt has elevated d-dimer 2.15. Dr Medrano aware.
[2022-01-15 12:03] LABS: Thyroid Stimulating Hormone 3.14 uIU/mL (0.36-3.74); Troponin I 4.5 ng/L (0.00-60.4)
[2022-01-15 12:20] LABS: SPREG INTERNAL CONTROL Positive; Serum Qual hCG Negative
--- NOTE | 2022-01-15 12:26 | PC.NURSE ---
Pt to CT via wheelchair with road grader operator. Pt does not appear to be in any distress at this time.
[2022-01-15 12:46] VITALS: BP 110/76; PULSE 95; RESP 18; O2SAT 98
--- NOTE | 2022-01-15 12:48 | PC.NURSE ---
Pt returned from CT and is resting on bed. Vital signs are stable.
== END 2022-01-15 13:25 | disposition home or self-care (01) ==
PROVIDERS: Emergency Provider Emergency Medicine; PCP Internal Medicine
DX: R55 Syncope and collapse (principal); R07.89 Other chest pain; E87.6 Hypokalemia; K21.9 Gastro-esophageal reflux disease without esophagitis; E03.9 Hypothyroidism, unspecified; E11.9 Type 2 diabetes mellitus without complications
CPT/HCPCS: 36415; 71275; 80053; 83735; 84443; 84484; 84703; 85025; 85380; 93005; 99284; Q9967

== ENCOUNTER 2022-01-31 08:43 | Emergency (ER) | payer MEDICARE, MEDICAID, SELFPAY ==
--- NOTE | ~2022-01-31 | XR_ITS ---
XR chest 1V portable DATE: 01/31/2022 11:17 INDICATION: Shortness of breath TECHNIQUE: Portable upright AP chest on 01/31/2022 1119 hours COMPARISON: CT pulmonary scan 08/31/2021 2 view chest FINDINGS: Normal heart size. No hilar or mediastinal enlargement. No pulmonary infiltrate or consolid ation, pleural effusion or pulmonary vascular congestion or pneumothorax. Prominent dextroscoliosis of the thoracic spine and levoscoliosis of the lumbar spine. IMPRESSION: No active cardiopulmonary disease Reviewed, dictated and finalized at location A.
[2022-01-31 08:50] VITALS: BP 140/96; PULSE 105; RESP 16; TEMP 36.9; O2SAT 96
[2022-01-31 11:08] LABS: Base Excess ABG 9.3 mmol/L (0-2); Oxygen Content ABG 17.1 %vol (16.0-22.0); Oxygen Saturation ABG 95.5 % (95-97); Oxyhemoglobin 95.1 % (94-100); PO2 ABG 72.8 mmHg (80-90); Total Hemoglobin 12.8 g/dL (12.0-18.0); pH ABG 7.52 (7.35-7.45)
[2022-01-31 11:09] LABS: Basophils Absolute Auto 0.04 K/mm3 (0.00-0.10); Basophils Percent Auto 0.4 % (0.0-1.0); Eosinophils Absolute Auto 0.04 K/mm3 (0.02-0.50); Eosinophils Percent Auto 0.4 % (1.0-6.0); Hematocrit 36.7 % (35.0-49.0); Immature Granulocyte Absolute 0.09 K/mm3 (0.00-0.00); Immature Granulocyte Percent A 0.9 % (0.0-0.0); Lymphocytes Absolute Auto 1.55 K/mm3 (1.10-4.50); Lymphocytes Percent Auto 15.1 % (18.0-42.0); Mean Corpuscular HGB Conc 32.7 g/dL (32.0-36.0); Mean Corpuscular Hemoglobin 26.8 pg (27.0-31.0); Mean Corpuscular Volume 81.9 fL (78.0-102.0); Mean Platelet Volume 9.2 fl (9.2-11.8); Monocytes Absolute Auto 0.95 K/mm3 (0.10-0.90); Monocytes Percent Auto 9.3 % (2.0-11.0); Neutrophils Absolute Auto 7.6 K/mm3 (1.7-7.2); Neutrophils Percent Auto 73.9 % (50.0-70.0); Platelet Count Result 385 K/mm3 (150-420); Red Blood Count 4.48 M/mm3 (4.20-5.40); Red Cell Distribution Width 12.7 % (11.6-14.4); White Blood Count 10.3 K/mm3 (4.8-10.8)
[2022-01-31 11:10] LABS: Device ROOM AIR; Modified Allen's Test Pass; Site Drawn LEFT RADIAL
[2022-01-31] MEDS: SODIUM CHLORIDE 0.9% IV 1,000 ML 999 ML IV CONT (11:18)
[2022-01-31] MEDS: methylPREDNISolone SOD SUCC 125 MG VIAL IV PUSH (11:18)
[2022-01-31 11:28] LABS: Alanine Aminotransferase 27 U/L (14-59); Alkaline Phosphatase 77 U/L (46-116); Anion Gap 8 mmol/L (8-16); Aspartate Amino Transferase 35 U/L (15-37); Bilirubin,Total 0.3 mg/dL (0.00-1.00); Blood Urea Nitrogen 5 mg/dL (7-18); Calcium 8.4 mg/dL (8.5-10.1); Carbon Dioxide 31 mmol/L (21-32); Chloride 92 mmol/L (98-108); Estimated Glomerular Filt Rate 57; Glucose 222 mg/dL (70-99); Osmolality Calculated 276 mOsm/kg (285-295); Sodium 131 mmol/L (136-145); Total Protein 8.1 g/dL (6.4-8.2)
[2022-01-31 11:59] LABS: Potassium 2.4 mmol/L (3.5-5.1)
--- NOTE | 2022-01-31 12:23 | PC.NURSE ---
patient is refusing UA, states when she goes she poops and she will not hold the cup she will only use a hat. ERP is made aware.
[2022-01-31] MEDS: KCL 20 MEQ/SW 100 ML 100 ML 50 MEQ IVPB (12:26)
[2022-01-31] MEDS: POTASSIUM CHLORIDE 20 MEQ TABLET 60 MEQ PO (12:28)
[2022-01-31] MEDS: SODIUM CHLORIDE 0.9% IV 1,000 ML 100 ML (12:39)
[2022-01-31 15:04] LABS: Alanine Aminotransferase 26 U/L (14-59); Albumin Level 1.9 g/dL (3.4-5.0); Alkaline Phosphatase 70 U/L (46-116); Anion Gap 7 mmol/L (8-16); Aspartate Amino Transferase 34 U/L (15-37); Bilirubin,Total 0.3 mg/dL (0.00-1.00); Blood Urea Nitrogen 4 mg/dL (7-18); Carbon Dioxide 28 mmol/L (21-32); Chloride 96 mmol/L (98-108); Estimated Glomerular Filt Rate > 60; Glucose 214 mg/dL (70-99); Osmolality Calculated 274 mOsm/kg (285-295); Potassium 3.1 mmol/L (3.5-5.1); Sodium 131 mmol/L (136-145); Total Protein 7.6 g/dL (6.4-8.2)
--- NOTE | 2022-01-31 16:16 | ED.GENADULT ---
HPI - General Adult General Chief complaint: Unspecified Stated complaint: ambulance Time Seen by Provider: 01/31/22 08:45 Source: patient, EMS and RN notes reviewed Mode of arrival: EMS Limitations: no limitations History of Present Illness complaint: resolved mild SOB, pt admits to hyperventilation Onset (ago): hour(s) (2) Location: chest Severity: mild Quality: other (no acute pain) Relieving factors: none Exacerbating factors: none Associated symptoms: chest pain Treatments prior to arrival: other (PO Benadryl for presumed allergic reaction.) Related Data Home Medications Medication Instructions Recorded Confirmed levothyroxine 25 mcg PO DAILY 08/26/19 02/08/22 linagliptin [Tradjenta] 5 mg PO DAILY 08/26/19 02/08/22 metformin 500 mg PO BID 08/26/19 02/08/22 pioglitazone [Actos] 15 mg PO DAILY 08/26/19 02/08/22 topiramate 100 mg PO HS 08/26/19 02/08/22 norgestimate-ethinyl estradiol 1 tablet PO DAILY 12/29/21 02/08/22 [[id number]-[id number]] albuterol sulfate 2 inh INHALATION Q4H PRN 02/08/22 02/08/22 diclofenac sodium 75 mg PO DAILY 02/08/22 02/08/22 dulaglutide [Trulicity] 0.75 mg SUBCUT WEEKLY 02/08/22 02/08/22 duloxetine 20 mg PO DAILY 02/08/22 02/08/22 famotidine 40 mg PO DAILY 02/08/22 02/08/22 ferrous gluconate 324 mg PO DAILY 02/08/22 02/08/22 silver sulfadiazine [SSD] 1 applic TOPICAL BID 02/08/22 02/08/22 Allergies Allergy/AdvReac Type Severity Reaction Status Date / Time adhesive Allergy Unknown Rash Verified 02/08/22 16:07 amoxicillin Allergy Unknown Rash Verified 02/08/22 16:07 dexmethylphenidate Allergy Unknown aggressiven Verified 02/08/22 16:07 ess Penicillins Allergy Unknown Rash Verified 02/08/22 16:07 Review of Systems Review of Systems: All systems reviewed & are unremarkable except as noted in HPI and below PMFSH Past Medical History Medical History Anxiety Depression GERD (gastroesophageal reflux disease) Hypokalemia Hypothyroidism Morbid obesity Scoliosis Type 2 diabetes mellitus Surgical History Surgical History History of axillary surgery History of tonsillectomy Family History Family History Father Hypertension Family history of elevated blood lipids Family history of coronary artery disease Family history of type 2 diabetes mellitus Mother Hypertension Family history of elevated blood lipids Family history of type 2 diabetes mellitus Social History Social History Smoking status: Never smoker Alcohol intake: current Gender identity (if verbalized by the patient): Female Exam Const: General: cooperative, no acute distress and alert Nutritional Appearance: obese Orientation/consciousness: patient oriented x3 Limitations: no limitations HENMT: Head: normocephalic and atraumatic Ears: hearing grossly normal bilaterally, external ears normal, TM's normal bilaterally and EAC's normal General nose exam: Normal external nose present and Normal nares present Face and sinus: normal facial exam and sinuses nontender Mouth: Yes Normal oral and palatal mucosa present, Yes lip normal, Yes tongue normal, Yes oropharynx normal and Yes moist mucous membranes Throat: posterior oropharynx normal Eyes: General: appearance normal, both eyes and all related structures Periorbital: periorbital findings normal Eyelids: eyelids normal Conjunctivae: conjunctivae normal Sclera: sclerae normal Cornea: corneas normal Pupils: Equal, round and reactive pupils present, Pupils normal by confrontation and Pupil accommodation reflex normal EOM: EOMs intact bilaterally Direct Ophthalmoscopy: normal light reflex Neck: Neck: normal visual inspection, full ROM, no lymphadenopathy and no meningeal signs Chest: Chest palpation & inspection: normal inspection of
--- NOTE | 2022-01-31 16:49 | ECG_ITS ---
Measurements Intervals [place] Rate: 100 P: 41 MN: 139 QRS: 54 QRSD: 86 T: 4 QT: 349 QTc: 452 Interpretive Statements SINUS TACHYCARDIA BORDERLINE ST-T WAVE ABNORMALITY- INFERIOR LEADS BASELINE ARTIFACT- I, II, III, AVR, AVL, AVF, V1-V3 BORDERLINE ECG Electronically Signed On 01-31-2022 20:00:51 CDT by Noel Sanz D.O.
[2022-01-31] MEDS: POTASSIUM CHLORIDE 20 MEQ TABLET PO (17:13)
[2022-01-31 17:43] VITALS: BP 108/71; PULSE 107; RESP 16; TEMP 36.4; O2SAT 98
== END 2022-01-31 17:53 | disposition home or self-care (01) ==
PROVIDERS: Emergency Provider Emergency Medicine; PCP Internal Medicine
DX: E87.6 Hypokalemia (principal); K21.9 Gastro-esophageal reflux disease without esophagitis; E11.9 Type 2 diabetes mellitus without complications
CPT/HCPCS: 36415; 36600; 71045; 80053; 82805; 85025; 93005; 96361; 96365; 96366; 96375; 99284; A9270; J2930; J3480; J7030

== ENCOUNTER 2022-02-08 15:07 | Emergency (ER) | payer MEDICARE, MEDICAID, SELFPAY ==
[2022-02-08 15:21] LABS: Glucose Point of Care 352 mg/dl (65-105)
--- NOTE | 2022-02-08 15:49 | ED.NAVMDI ---
HPI - Nausea/Vomiting/Diarrhea General Chief complaint: Nausea/Vomiting/Diarrhea Stated complaint: Feels like she is going to pass out/cant eat Source: patient, family and RN notes reviewed Mode of arrival: wheelchair Limitations: no limitations History of Present Illness HPI Narrative: Patient states that she has been having nausea vomiting diarrhea for the last month. She was seen in the emergency room just 8 days ago and diagnosed with low potassium only. She says that she has been taking her potassium medications. She apparently went to her primary care physician's office and was found laying on the lobby floor saying that she was so weak she could not move, but did not sustain any injuries. She says she is not eating has not been able to keep anything down because of her vomiting. Primary care physicians offices that she needs an evaluation due to her constant weakness. She says that she has not been taking her diabetic medications either because she feels nauseous. She is on metformin which can cause nausea. MD elicited complaint: nausea, vomiting and diarrhea Onset (ago): month(s) (1) Description of vomiting: watery Associated nausea: Yes Associated abdominal pain: No Severity: severe Exacerbating factors: eating Relieving factors: none Treatment prior to arrival: none Related Data Home Medications Medication Instructions Recorded Confirmed levothyroxine 25 mcg PO DAILY 08/26/19 02/08/22 linagliptin [Tradjenta] 5 mg PO DAILY 08/26/19 02/08/22 metformin 500 mg PO BID 08/26/19 02/08/22 pioglitazone [Actos] 15 mg PO DAILY 08/26/19 02/08/22 topiramate 100 mg PO HS 08/26/19 02/08/22 norgestimate-ethinyl estradiol 1 tablet PO DAILY 12/29/21 02/08/22 [Hxd-Xt-Mquqwuba] albuterol sulfate 2 inh INHALATION Q4H PRN 02/08/22 02/08/22 diclofenac sodium 75 mg PO DAILY 02/08/22 02/08/22 dulaglutide [Trulicity] 0.75 mg SUBCUT WEEKLY 02/08/22 02/08/22 duloxetine 20 mg PO DAILY 02/08/22 02/08/22 famotidine 40 mg PO DAILY 02/08/22 02/08/22 ferrous gluconate 324 mg PO DAILY 02/08/22 02/08/22 silver sulfadiazine [SSD] 1 applic TOPICAL BID 02/08/22 02/08/22 Allergies Allergy/AdvReac Type Severity Reaction Status Date / Time adhesive Allergy Unknown Rash Verified 02/08/22 16:07 amoxicillin Allergy Unknown Rash Verified 02/08/22 16:07 dexmethylphenidate Allergy Unknown aggressiven Verified 02/08/22 16:07 ess Penicillins Allergy Unknown Rash Verified 02/08/22 16:07 PMFSH Past Medical History Medical History Anxiety Depression GERD (gastroesophageal reflux disease) Hypokalemia Hypothyroidism Morbid obesity Scoliosis Type 2 diabetes mellitus Surgical History Surgical History History of axillary surgery History of tonsillectomy Family History Family History Father Hypertension Family history of elevated blood lipids Family history of coronary artery disease Family history of type 2 diabetes mellitus Mother Hypertension Family history of elevated blood lipids Family history of type 2 diabetes mellitus Social History Social History Smoking status: Never smoker Alcohol intake: current Gender identity (if verbalized by the patient): Female Exam Const: General: no acute distress, alert and ill appearing chronically Nutritional Appearance: well nourished and obese Orientation/consciousness: patient oriented x3 Other: female nurse in room during examination. HENMT: Head: normal to inspection Ears: external ears normal General nose exam: Normal external nose present Face and sinus: normal facial exam Mouth: Yes lip normal and Yes moist mucous membranes Teeth and gingiva: caries and poor dentition Eyes: Cornea: corneas normal Pupils: Equal, round and reactive pupils present EOM: EOMs intact angela
[2022-02-08] MEDS: SODIUM CHLORIDE 0.9% IV 1,000 ML 999 ML IV CONT (15:57)
[2022-02-08 16:01] VITALS: BP 121/89; PULSE 126; RESP 20; TEMP 36.4; O2SAT 96
[2022-02-08 16:10] LABS: Hematocrit 35.5 % (35.0-49.0); Hemoglobin 11.3 g/dL (12.0-15.0); Mean Corpuscular HGB Conc 31.8 g/dL (32.0-36.0); Mean Corpuscular Hemoglobin 26.5 pg (27.0-31.0); Mean Corpuscular Volume 83.3 fL (78.0-102.0); Mean Platelet Volume 9.6 fl (9.2-11.8); Platelet Count Result 401 K/mm3 (150-420); Red Blood Count 4.26 M/mm3 (4.20-5.40); Red Cell Distribution Width 13.5 % (11.6-14.4)
[2022-02-08 16:23] LABS: Alanine Aminotransferase 37 U/L (14-59); Albumin Level 1.7 g/dL (3.4-5.0); Alkaline Phosphatase 63 U/L (46-116); Anion Gap 9 mmol/L (8-16); Aspartate Amino Transferase < 10 U/L (15-37); Bilirubin,Total 0.5 mg/dL (0.00-1.00); Blood Urea Nitrogen 12 mg/dL (7-18); Calcium 8.1 mg/dL (8.5-10.1); Carbon Dioxide 26 mmol/L (21-32); Chloride 94 mmol/L (98-108); Estimated CRCL calculation 72 ml/min; Estimated Glomerular Filt Rate 54; Glucose 355 mg/dL (70-99); Lipase 52 U/L (73-393); Osmolality Calculated 281 mOsm/kg (285-295); Sodium 129 mmol/L (136-145); Total Protein 7.2 g/dL (6.4-8.2)
[2022-02-08 16:30] LABS: Band Neutrophils Percent 3 % (0-6); Basophils Percent Manual 1 % (0-1); Eosinophils Percent Manual 0 % (1-6); Lymphocytes Percent Manual 12 % (18-44); Monocytes Percent Manual 11 % (3-9); Neutrophils Percent Manual 73 % (46-73); Platelet Estimate Adequate (Adequate); Total Cells Counted 100
[2022-02-08 16:45] VITALS: BP 123/76; PULSE 101; RESP 20; O2SAT 96
[2022-02-08] MEDS: SODIUM CHLORIDE 0.9% IV 1,000 ML 250 ML IV CONT (17:09)
[2022-02-08] MEDS: KCL 20 MEQ/SW 100 ML 100 ML 50 MEQ IVPB (17:10)
[2022-02-08 17:30] VITALS: BP 128/90; PULSE 102; RESP 20; O2SAT 97
[2022-02-08 18:00] VITALS: BP 126/88; PULSE 105; RESP 20; O2SAT 98
[2022-02-08 18:42] VITALS: BP 126/80; PULSE 104; RESP 20; O2SAT 96
[2022-02-08 18:49] LABS: Amphetamine Screen Urine Negative (Negative); Barbiturate Screen Urine Negative (Negative); Benzodiazepines Screen Urine Negative (Negative); Cannabinoid Screen Urine Negative (Negative); Cocaine Screen Urine Negative (Negative); Methadone Screen Urine Negative (Negative); Opiate Screen Urine Negative (Negative); Phencyclidine Screen Urine Negative (Negative)
[2022-02-08 18:54] LABS: Add Urine Microscopic? YES; Appearance Urine Clear (Clear); Bilirubin Urine Negative (Negative); Blood Urine 2+ (Negative); Color Urine Brown (Yellow); Glucose Urine UA 3+ (Negative); Ketones Urine Trace (Negative); Leukocyte Esterase Ur Negative LEU/UL (Negative); Nitrate Urine Negative (Negative); Protein Urine 1+ (Negative); Specific Grav Ur 1.025 (1.010-1.020); Urobilinogen Urine 0.2 mg/dL (0.2-1.0)
[2022-02-08 18:59] LABS: Bacteria Urine 3+ /hpf; Budding Yeast Urine Present /hpf; Squamous Epithelial Cell Urine Many /hpf (Few)
[2022-02-08 19:56] VITALS: BP 131/79; PULSE 78; RESP 18; TEMP 36.8; O2SAT 98
== END 2022-02-08 19:58 | disposition home or self-care (01) ==
PROVIDERS: Emergency Provider Emergency Medicine; PCP Internal Medicine
DX: E87.6 Hypokalemia (principal); N30.00 Acute cystitis without hematuria; Z79.899 Other long term (current) drug therapy; K21.9 Gastro-esophageal reflux disease without esophagitis; E03.9 Hypothyroidism, unspecified; E11.9 Type 2 diabetes mellitus without complications
CPT/HCPCS: 36415; 80053; 80307; 81001; 82948; 83605; 83690; 85025; 87324; 96361; 96365; 96366; 96367; 99284; J0696; J3480; J7030

== ENCOUNTER 2022-02-15 15:16 | Emergency (ER) | payer MEDICARE, MEDICAID, SELFPAY ==
--- NOTE | ~2022-02-15 | XR_ITS ---
XR ankle LT min 3V 02/15/2022 15:59 INDICATION: Left ankle pain PROCEDURE: 4 views left ankle COMPARISON: Comparison to multiple prior studies sequentially, with oldest reviewed study dated 05/26. FINDINGS: Fracture, dislocation or subluxation is not identified. The soft tissues appear within norm al limits. No foreign bodies are identified. IMPRESSION: 1: NO ACUTE BONE OR JOINT ABNORMALITY IDENTIFIED. Reviewed, dictated and finalized at location A.
--- NOTE | 2022-02-15 15:25 | ED.WEAKNESS ---
HPI - Weakness General Chief complaint: Weakness Stated complaint: weakness, high blood pressure Time Seen by Provider: 02/15/22 15:18 History of Present Illness HPI Narrative: 26-year-old female patient is the presented herself to the ER from her doctor's office with complaints of weakness. The patient apparently has had recurrent history of hypokalemia and weakness there off and is here to be rechecked. She was seen here last week for hypokalemia and was treated and apparently since then has been taking potassium supplement and Keflex for urinary tract infection and states that she is able to keep Shae down. She states that she does not drink enough water and does not eat regular meals. She denies any nausea or vomiting. She denies any abdominal pain. She does complain about sore throat. Denies any fever or chills. Patient denies any headache or vision problems. She denies any chest pain or shortness of breath. She denies any pain in her extremities. She does complain about having twisted her left ankle about 4 weeks ago and has continued pain in the ankle area especially with weight-bearing. Patient denies any problem with vision or hearing. Patient states that she has a history of diabetes mellitus type 2 among other history is of depression and hypothyroidism and obesity. Apparently the patient lives at home with her mother who is partially blind and the sister and her and their 3 children. Patient denies smoking but is exposed to secondhand smoke. He claims that she has asthma as well. Denies any COVID exposure recently. His COVID vaccinated. Her medication list has been reviewed Related Data Home Medications Medication Instructions Recorded Confirmed Silvadene 1 % BID 02/15/22 02/15/22 Tradjenta 5 mg DAILY 02/15/22 02/15/22 Ehm-Fr-Qubmqjkw 1 tablet DAILY 02/15/22 02/15/22 Ventolin HFA 1 - 2 puff Q4-6H PRN 02/15/22 02/15/22 albuterol sulfate 1 puff Q6-8H PRN 02/15/22 02/15/22 diclofenac sodium 75 mg DAILY 02/15/22 02/15/22 duloxetine 20 mg BID 02/15/22 02/15/22 famotidine 40 mg DAILY 02/15/22 02/15/22 ferrous gluconate 324 mg DAILY 02/15/22 02/15/22 gabapentin 300 mg TID 02/15/22 02/15/22 ketoconazole 2 % BID 02/15/22 02/15/22 levothyroxine 25 mcg DAILY 02/15/22 02/15/22 metformin 1,000 mg DAILY 02/15/22 02/15/22 metronidazole 500 mg BID 02/15/22 02/15/22 pioglitazone 15 mg DAILY 02/15/22 02/15/22 topiramate 100 mg HS 02/15/22 02/15/22 Allergies Allergy/AdvReac Type Severity Reaction Status Date / Time adhesive Allergy Unknown Rash Verified 02/08/22 16:07 amoxicillin Allergy Unknown Rash Verified 02/08/22 16:07 dexmethylphenidate Allergy Unknown aggressiven Verified 02/08/22 16:07 ess Penicillins Allergy Unknown Rash Verified 02/08/22 16:07 Review of Systems Review of Systems: All systems reviewed & are unremarkable except as noted in HPI and below Constitutional: Constitutional: Reports no additional constitutional complaints ENT: Reports system reviewed and no additional complaints, except as documented Cardiovascular: Cardiovascular: Reports no additional cardiovascular complaints Gastrointestinal: Gastrointestinal: Reports no additional gastrointestinal complaints Musculoskeletal: Musculoskeletal: Reports no additional musculoskeletal complaints Neurologic: Reports system reviewed and no additional complaints, except as documented Psychiatric: Psychiatric: Reports no additional psychiatric complaints Endocrine: Endocrine: Reports no additional endocrine complaints Allergic/Immunologic: Allergic/Immunologic: Reports no additional allergic/immunologic complaints [facility] Past Medical History Medical History Anxiety Depression GERD (gastroesophageal reflux disease) Hypokalemia Hypothyroidism Morbid obesity Scoliosis Type 2 diabetes mellitus Surgical History Surgical History H
[2022-02-15 15:31] VITALS: BP 102/75; PULSE 119; RESP 16; TEMP 36.1; O2SAT 97
--- NOTE | 2022-02-15 15:38 | ECG_ITS ---
Measurements Intervals [place] Rate: 115 P: 35 NM: 112 QRS: 48 QRSD: 81 T: -9 QT: 342 QTc: 473 Interpretive Statements SINUS TACHYCARDIA WITH SHORT NM INTERVAL ST-T WAVE ABNORMALITY IN INFERIOR LEADS- CONSIDER ISCHEMIA BASELINE ARTIFACT- I, III, AVR, AVL, AVF, V1-V6 ABNORMAL ECG Electronically Signed On 02-15-2022 16:19:32 CDT by Noel Sanz D.O.
--- NOTE | 2022-02-15 15:41 | PC.NURSE ---
Per ERP, during her assessment pt reported ankle pain and said she believed her ankle was broken. Pt did not report any type of ankle pain to RN and was able to ambulate from wheelchair to bed without assistance upon her arrival to ER room.
[2022-02-15 15:54] LABS: Basophils Absolute Auto 0.04 K/mm3 (0.00-0.10); Basophils Percent Auto 0.5 % (0.0-1.0); Eosinophils Absolute Auto 0.03 K/mm3 (0.02-0.50); Eosinophils Percent Auto 0.4 % (1.0-6.0); Hematocrit 36.1 % (35.0-49.0); Hemoglobin 11.5 g/dL (12.0-15.0); Immature Granulocyte Absolute 0.12 K/mm3 (0.00-0.00); Immature Granulocyte Percent A 1.5 % (0.0-0.0); Lymphocytes Absolute Auto 1.36 K/mm3 (1.10-4.50); Lymphocytes Percent Auto 16.7 % (18.0-42.0); Mean Corpuscular HGB Conc 31.9 g/dL (32.0-36.0); Mean Corpuscular Hemoglobin 26.6 pg (27.0-31.0); Mean Corpuscular Volume 83.4 fL (78.0-102.0); Mean Platelet Volume 9.2 fl (9.2-11.8); Monocytes Absolute Auto 0.77 K/mm3 (0.10-0.90); Monocytes Percent Auto 9.4 % (2.0-11.0); Neutrophils Absolute Auto 5.8 K/mm3 (1.7-7.2); Neutrophils Percent Auto 71.5 % (50.0-70.0); Platelet Count Result 352 K/mm3 (150-420); Red Blood Count 4.33 M/mm3 (4.20-5.40); Red Cell Distribution Width 13.2 % (11.6-14.4); White Blood Count 8.2 K/mm3 (4.8-10.8)
[2022-02-15 16:05] VITALS: BP 105/75; PULSE 100; RESP 16; TEMP 36.6; O2SAT 97
[2022-02-15 16:09] LABS: Alanine Aminotransferase 28 U/L (14-59); Albumin Level 1.9 g/dL (3.4-5.0); Alkaline Phosphatase 56 U/L (46-116); Anion Gap 9 mmol/L (8-16); Aspartate Amino Transferase 24 U/L (15-37); Bilirubin,Total 0.6 mg/dL (0.00-1.00); Blood Urea Nitrogen 6 mg/dL (7-18); Calcium 8.5 mg/dL (8.5-10.1); Carbon Dioxide 30 mmol/L (21-32); Chloride 86 mmol/L (98-108); Estimated CRCL calculation 93 ml/min; Estimated Glomerular Filt Rate > 60; Glucose 280 mg/dL (70-99); Osmolality Calculated 267 mOsm/kg (285-295); Sodium 125 mmol/L (136-145)
--- NOTE | 2022-02-15 16:09 | PC.NURSE ---
Report given to Bridgette RN
[2022-02-15 16:12] LABS: Potassium 2.4 mmol/L (3.5-5.1)
[2022-02-15] MEDS: SODIUM CHLORIDE 0.9% IV 1,000 ML 999 ML IV CONT (16:35)
[2022-02-15] MEDS: KCL 20 MEQ/SW 100 ML 100 ML 50 MEQ IVPB (16:36)
[2022-02-15] MEDS: POTASSIUM CHLORIDE 20 MEQ TABLET 40 MEQ PO ×2 (16:36→19:53)
[2022-02-15 16:46] LABS: Add Urine Microscopic? YES; Appearance Urine Slightly Cloudy (Clear); Bilirubin Urine 2+ (Negative); Blood Urine 3+ (Negative); Color Urine Yellow (Yellow); Glucose Urine UA Negative (Negative); Ketones Urine 1+ (Negative); Leukocyte Esterase Ur Trace (Negative); Nitrate Urine Negative (Negative); Protein Urine 1+ (Negative); Urobilinogen Urine 0.2 mg/dL (0.2-1.0)
[2022-02-15 16:50] LABS: Bacteria Urine Trace /hpf; RBC Urine >75 /hpf (0-2); Squamous Epithelial Cell Urine Few /hpf (Few); WBC Urine 0-3 /hpf (0-3)
[2022-02-15 16:51] LABS: Mucus Urine Moderate /lpf
--- NOTE | 2022-02-15 16:53 | PC.NURSE ---
patient ill-kept with body odor, body & hair dirty. Currently on menstrual cycle. wipes given to clean self for UA, patient did not use.
[2022-02-15 18:19] VITALS: BP 108/73; PULSE 100; RESP 18; O2SAT 96
[2022-02-15 19:13] LABS: Anion Gap 7 mmol/L (8-16); Blood Urea Nitrogen 5 mg/dL (7-18); Calcium 8.1 mg/dL (8.5-10.1); Carbon Dioxide 32 mmol/L (21-32); Chloride 90 mmol/L (98-108); Estimated CRCL calculation 99 ml/min; Estimated Glomerular Filt Rate > 60; Glucose 166 mg/dL (70-99); Osmolality Calculated 269 mOsm/kg (285-295); Potassium 2.8 mmol/L (3.5-5.1); Sodium 129 mmol/L (136-145)
--- NOTE | 2022-02-15 19:20 | PC.NURSE ---
pt is resting on stretcher in exam room awaiting lab results. nad noted. will continue to monitor. pt denies any needs or complaints.
[2022-02-15 19:55] VITALS: BP 109/68; PULSE 98; RESP 16; TEMP 36.9; O2SAT 99
[2022-02-15 20:25] VITALS: PULSE 98; RESP 16; TEMP 36.1; O2SAT 99
[2022-03-02 10:19] LABS: Glucose Point of Care 137 mg/dl (65-105)
--- NOTE | 2022-03-14 06:57 | PC.NURSE ---
IV fluids stopped 1914
== END 2022-02-15 20:25 | disposition home or self-care (01) ==
PROVIDERS: Emergency Provider Emergency Medicine; PCP Internal Medicine
DX: E87.6 Hypokalemia (principal); J02.0 Streptococcal pharyngitis; K21.9 Gastro-esophageal reflux disease without esophagitis; F41.8 Other specified anxiety disorders; E03.9 Hypothyroidism, unspecified; E11.9 Type 2 diabetes mellitus without complications
CPT/HCPCS: 36415; 73610; 80048; 80053; 81001; 82948; 83735; 85025; 87880; 93005; 96361; 96365; 96366; 96367; 99284; A9270; J0696; J3480; J7030

== ENCOUNTER 2022-03-04 18:12 | Emergency (ER) | payer MEDICARE, MEDICAID, SELFPAY ==
--- NOTE | ~2022-03-04 | XR_ITS ---
EXAMINATION: XR elbow LT 2V INDICATION: Left elbow pain TECHNIQUE: Two views of the left elbow are obtained. COMPARISON: None available FINDINGS: There is no fracture, dislocation, or subluxation. The bones, soft tissues, and joint space s are normal. IMPRESSION: 1. No acute osseous abnormality. Reviewed, dictated and finalized at location F.
--- NOTE | ~2022-03-04 | XR_ITS ---
EXAMINATION: XR ankle LT 2V DATE: 03/04/2022 18:49 INDICATION: Left ankle pain TECHNIQUE: Two views of the left ankle were obtained. COMPARISON: 02/15/2022 FINDINGS: There is no fracture, dislocation, or subluxation. The bones, soft tissues, and joint space s are normal. IMPRESSION: 1. No acute osseous abnormality. Reviewed, dictated and finalized at location F.
--- NOTE | ~2022-03-04 | XR_ITS ---
EXAMINATION: XR wrist RT 2V INDICATION: Right wrist pain TECHNIQUE: Two views of the right wrist are obtained. COMPARISON: 08/09/2012 FINDINGS: There is no fracture, dislocation, or subluxation. The bones, soft tissues, and joint space s are normal. IMPRESSION: 1. No acute osseous abnormality. Reviewed, dictated and finalized at location F.
[2022-03-04 18:25] VITALS: BP 130/83; PULSE 113; RESP 20; TEMP 36.9; O2SAT 99
[2022-03-04] MEDS: KETOROLAC (*BKC) 60 MG/2 ML VIAL IM (18:39)
--- NOTE | 2022-03-04 19:19 | ED.FALL ---
HPI - Fall General Chief Complaint: Fall Stated Complaint: Ankle, elbow, wrist pain Source: patient and family Mode of arrival: ambulatory Limitations: no limitations History of Present Illness HPI Narrative: this is a 26-year-old female that presents after she fell going up steps leading to her back causing some pain and tenderness in her left ankle and left elbow and right wrist with no head injury no loss of consciousness pain she rates about a 6/10 has good range of motion although tender mainly in the left ankle. MD complaint: fall Onset (ago): hour(s) Fall from: other ( fell going up a flight of steps) Fall witnessed: yes, by family Place fall occurred: home Loss of consciousness: none Related Data Home Medications Medication Instructions Recorded Confirmed Silvadene 1 % BID 02/15/22 02/15/22 Tradjenta 5 mg DAILY 02/15/22 02/15/22 Msc-[id number]-Dusfcktk 1 tablet DAILY 02/15/22 02/15/22 Ventolin HFA 1 - 2 puff Q4-6H PRN Wheezing 02/15/22 02/15/22 albuterol sulfate 1 puff Q6-8H PRN Wheezing 02/15/22 02/15/22 diclofenac sodium 75 mg DAILY 02/15/22 02/15/22 duloxetine 20 mg BID 02/15/22 02/15/22 famotidine 40 mg DAILY 02/15/22 02/15/22 ferrous gluconate 324 mg DAILY 02/15/22 02/15/22 gabapentin 300 mg TID 02/15/22 02/15/22 ketoconazole 2 % BID 02/15/22 02/15/22 levothyroxine 25 mcg DAILY 02/15/22 02/15/22 metformin 1,000 mg DAILY 02/15/22 02/15/22 metronidazole 500 mg BID 02/15/22 02/15/22 pioglitazone 15 mg DAILY 02/15/22 02/15/22 Allergies Allergy/AdvReac Type Severity Reaction Status Date / Time adhesive Allergy Unknown Rash Verified 02/08/22 16:07 amoxicillin Allergy Unknown Rash Verified 02/08/22 16:07 dexmethylphenidate Allergy Unknown aggressiven Verified 02/08/22 16:07 ess Penicillins Allergy Unknown Rash Verified 02/08/22 16:07 cephalexin Allergy Unknown Verified 03/04/22 19:14 Review of Systems Review of Systems: All systems reviewed & are unremarkable except as noted in HPI and below PMFSH Past Medical History Medical History Anxiety Depression GERD (gastroesophageal reflux disease) Hypokalemia Hypothyroidism Morbid obesity Scoliosis Type 2 diabetes mellitus Surgical History Surgical History History of axillary surgery History of tonsillectomy Family History Family History Father Hypertension Family history of elevated blood lipids Family history of coronary artery disease Family history of type 2 diabetes mellitus Mother Hypertension Family history of elevated blood lipids Family history of type 2 diabetes mellitus Social History Social History Smoking status: Never smoker Alcohol intake: current Gender identity (if verbalized by the patient): Female Exam Const: General: healthy appearing, no acute distress and alert Nutritional Appearance: well nourished Limitations: no limitations HENMT: Head: normal to inspection Face and sinus: normal facial exam Eyes: Conjunctivae: conjunctivae normal Neck: Neck: normal visual inspection, no lymphadenopathy and no meningeal signs Resp: Effort & Inspection: normal respiratory effort Cardio: Rate: regular rate Rhythm: regular rhythm GI: Auscultation: normal bowel sounds Rectal Exam: normal sphincter tone Skin: General skin exam: normal color Rashes: no rashes Neuro: General: patient oriented x3 Extrem: Other: Tenderness in the bilateral malleolus of her left ankle tenderness in the anterior surface of her left elbow and right wrist tenderness. Psych: Mental Status: mental status grossly normal Course Course Emergency Course: Patient received IM Toradol patient after reassessment pain level has improved reviewed her x-rays which show no acute fractures. Vital Signs Vital signs: Vit
[2022-03-04 19:26] VITALS: BP 111/67; PULSE 77; RESP 20; TEMP 36.6; O2SAT 98
== END 2022-03-04 19:34 | disposition home or self-care (01) ==
PROVIDERS: Emergency Provider Emergency Medicine; PCP Internal Medicine
DX: S96.912A Strain of unspecified muscle and tendon at ankle and foot level, left foot, initial encounter (principal); S46.812A Strain of other muscles, fascia and tendons at shoulder and upper arm level, left arm, initial encounter; S63.501A Unspecified sprain of right wrist, initial encounter; W19.XXXA Unspecified fall, initial encounter
CPT/HCPCS: 73070; 73100; 73600; 96372; 99284; J1885

== ENCOUNTER 2022-03-09 10:42 | Emergency (ER) | payer MEDICARE, MEDICAID, SELFPAY ==
--- NOTE | ~2022-03-09 | XR_ITS ---
XR hand LT min 3V 03/09/2022 11:43 INDICATION: Left hand pain PROCEDURE: 3 views left hand COMPARISON: No prior studies for comparison. FINDINGS: Fracture, dislocation or subluxation is not identified. The soft tissues appear within norm al limits. No foreign bodies are identified. IMPRESSION: 1: NO ACUTE BONE OR JOINT ABNORMALITY IDENTIFIED. Reviewed, dictated and finalized at location B.
--- NOTE | ~2022-03-09 | XR_ITS ---
XR humerus LT 03/09/2022 11:43 INDICATION: Left arm pain after fall PROCEDURE: 2 views left humerus COMPARISON: No prior studies for comparison. FINDINGS: Fracture, dislocation or subluxation is not identified. The soft tissues appear within norm al limits. No foreign bodies are identified. IMPRESSION: 1: NO ACUTE BONE OR JOINT ABNORMALITY IDENTIFIED. Reviewed, dictated and finalized at location B.
--- NOTE | ~2022-03-09 | XR_ITS ---
XR forearm LT 2V 03/09/2022 11:43 INDICATION: Left arm pain PROCEDURE: 2 views left forearm COMPARISON: No prior studies for comparison. FINDINGS: Fracture, dislocation or subluxation is not identified. The soft tissues appear within norm al limits. No foreign bodies are identified. IMPRESSION: 1: NO ACUTE BONE OR JOINT ABNORMALITY IDENTIFIED. Reviewed, dictated and finalized at location B.
[2022-03-09 10:43] VITALS: BP 110/68; PULSE 92; RESP 18; TEMP 37; O2SAT 98
[2022-03-09] MEDS: IBUPROFEN 600 MG TABLET PO (11:33)
[2022-03-09] MEDS: ACETAMINOPHEN 325 MG TABLET PO (11:33)
--- NOTE | 2022-03-09 11:47 | ED.UPPEXIN ---
HPI - Extremity Injury (Upper) General Chief Complaint: Extremity Injury, Upper Stated Complaint: left arm and shoulder pain and hand Time Seen by Provider: 03/09/22 10:46 Source: patient and RN notes reviewed Mode of arrival: ambulatory Limitations: no limitations History of Present Illness HPI narrative: left upper limb painful x 1 week. complaint: injury to: left, shoulder, arm, elbow, forearm, wrist and hand Onset (ago): week(s) (1) Other injuries: none Place: home Severity: mild Severity scale (1-10): 5 Relieving factors: immobilization Exacerbating factors: movement of extremity Associated symptoms: denies other symptoms Related Data Home Medications Medication Instructions Recorded Confirmed Silvadene 1 % BID 02/15/22 03/04/22 Tradjenta 5 mg DAILY 02/15/22 03/04/22 Yqv-Kw-Ganfhgwn 1 tablet DAILY 02/15/22 03/04/22 Ventolin HFA 1 - 2 puff Q4-6H PRN Wheezing 02/15/22 03/04/22 albuterol sulfate 1 puff Q6-8H PRN Wheezing 02/15/22 03/04/22 diclofenac sodium 75 mg DAILY 02/15/22 03/04/22 duloxetine 20 mg BID 02/15/22 03/04/22 famotidine 40 mg DAILY 02/15/22 03/04/22 ferrous gluconate 324 mg DAILY 02/15/22 03/04/22 gabapentin 300 mg TID 02/15/22 03/04/22 ketoconazole 2 % BID 02/15/22 03/04/22 levothyroxine 25 mcg DAILY 02/15/22 03/04/22 metformin 1,000 mg DAILY 02/15/22 03/04/22 metronidazole 500 mg BID 02/15/22 03/04/22 pioglitazone 15 mg DAILY 02/15/22 03/04/22 Allergies Allergy/AdvReac Type Severity Reaction Status Date / Time adhesive Allergy Unknown Rash Verified 03/09/22 11:12 amoxicillin Allergy Unknown Rash Verified 03/09/22 11:12 dexmethylphenidate Allergy Unknown aggressiven Verified 03/09/22 11:12 ess Penicillins Allergy Unknown Rash Verified 03/09/22 11:12 cephalexin Allergy Unknown Verified 03/09/22 11:12 Review of Systems Review of Systems: All systems reviewed & are unremarkable except as noted in HPI and below Constitutional: Constitutional: Reports no additional constitutional complaints Eyes: Eyes: Reports no additional eye complaints ENT: Reports system reviewed and no additional complaints, except as documented Cardiovascular: Cardiovascular: Reports no additional cardiovascular complaints Respiratory: Respiratory: Reports no additional respiratory complaints Gastrointestinal: Gastrointestinal: Reports no additional gastrointestinal complaints Genitourinary: Genitourinary: Reports no additional female genitourinary complaints Musculoskeletal: Musculoskeletal: Reports no additional musculoskeletal complaints Integumentary/Breasts: Skin/Breast: Reports system reviewed and no additional complaints, except as docu Neurologic: Reports system reviewed and no additional complaints, except as documented Psychiatric: Psychiatric: Reports no additional psychiatric complaints Endocrine: Endocrine: Reports no additional endocrine complaints Hematologic/Lymphatic: Hematologic/Lymphatic: Reports no additional hematologic/lymphatic complaints Allergic/Immunologic: Allergic/Immunologic: Reports no additional allergic/immunologic complaints [facility] Past Medical History Medical History (Updated 04/10/22 @ 13:06 by Robles Ken MD) Anxiety Depression GERD (gastroesophageal reflux disease) Hypokalemia Hypothyroidism Left upper limb pain Morbid obesity Scoliosis Type 2 diabetes mellitus Surgical History Surgical History History of axillary surgery History of tonsillectomy Family History Family History Father Hypertension Family history of elevated blood lipids Family history of coronary artery disease Family history of type 2 diabetes mellitus Mother Hypertension Family history of elevated blood lipids Family history of type 2 diabetes mellitus Social History Social History Smoking status: Never
[2022-03-09 12:09] VITALS: BP 123/74; PULSE 81; TEMP 36.8; O2SAT 85
== END 2022-03-09 12:48 | disposition home or self-care (01) ==
PROVIDERS: Emergency Provider Emergency Medicine; PCP Internal Medicine
DX: M79.602 Pain in left arm (principal); K21.9 Gastro-esophageal reflux disease without esophagitis; E03.9 Hypothyroidism, unspecified; E11.9 Type 2 diabetes mellitus without complications
CPT/HCPCS: 73060; 73090; 73130; 99284; A4565; A9270

== ENCOUNTER 2022-03-22 16:31 | Outpatient (CLI) | payer MEDICARE, SELFPAY ==
[2022-03-22 16:54] LABS: Basophils Absolute Auto 0.03 K/mm3 (0.00-0.10); Basophils Percent Auto 0.3 % (0.0-1.0); Eosinophils Absolute Auto 0.28 K/mm3 (0.02-0.50); Eosinophils Percent Auto 3.1 % (1.0-6.0); Hematocrit 33.4 % (35.0-49.0); Hemoglobin 10.3 g/dL (12.0-15.0); Immature Granulocyte Absolute 0.04 K/mm3 (0.00-0.00); Immature Granulocyte Percent A 0.4 % (0.0-0.0); Immature Reticulocyte Fraction 17.7 % (2.0-16.52); Lymphocytes Absolute Auto 2.42 K/mm3 (1.10-4.50); Lymphocytes Percent Auto 26.5 % (18.0-42.0); Mean Corpuscular HGB Conc 30.8 g/dL (32.0-36.0); Mean Corpuscular Hemoglobin 27.2 pg (27.0-31.0); Mean Corpuscular Volume 88.4 fL (78.0-102.0); Mean Platelet Volume 9.4 fl (9.2-11.8); Monocytes Absolute Auto 0.78 K/mm3 (0.10-0.90); Monocytes Percent Auto 8.6 % (2.0-11.0); Neutrophils Absolute Auto 5.6 K/mm3 (1.7-7.2); Neutrophils Percent Auto 61.1 % (50.0-70.0); Platelet Count Result 426 K/mm3 (150-420); Red Blood Count 3.78 M/mm3 (4.20-5.40); Red Cell Distribution Width 17.1 % (11.6-14.4); Reticulocyte Hemoglobin Conten 31.1 pg (28.0-35.0); White Blood Count 9.1 K/mm3 (4.8-10.8)
[2022-03-22 17:18] LABS: Alanine Aminotransferase 14 U/L (14-59); Albumin Level 2.6 g/dL (3.4-5.0); Alkaline Phosphatase 73 U/L (46-116); Anion Gap 6 mmol/L (8-16); Aspartate Amino Transferase 11 U/L (15-37); Bilirubin,Total 0.2 mg/dL (0.00-1.00); Blood Urea Nitrogen 9 mg/dL (7-18); Calcium 8.8 mg/dL (8.5-10.1); Carbon Dioxide 27 mmol/L (21-32); Chloride 101 mmol/L (98-108); Estimated Glomerular Filt Rate 59; Ferritin 139 ng/mL (8-252); Glucose 104 mg/dL (70-99); Iron 26 ug/dL (50-170); Osmolality Calculated 276 mOsm/kg (285-295); Percent Iron Saturation 9 % (12-57); Potassium 4.1 mmol/L (3.5-5.1); Sodium 134 mmol/L (136-145); Total Protein 8.3 g/dL (6.4-8.2)
[2022-03-24 22:00] LABS: Actin Antibody (IgG) <20 U (<20)
[2022-03-24 22:24] LABS: Alpha 1 Globulin 0.6 g/dL (0.2-0.3); Alpha 2 Globulin 1.7 g/dL (0.5-0.9); Beta 1 Globulin 0.5 g/dL (0.4-0.6); Gamma Globulin 2.4 g/dL (0.8-1.7); Protein, Total 8.6 g/dL (6.1-8.1)
[2022-03-25 03:36] LABS: Hepatitis A Antibody IgM Nonreactive; Hepatitis B Core Antibody Nonreactive (Nonreactive); Hepatitis B Surface Antigen Nonreactive (Nonreactive); Hepatitis C Signal to Cutoff 0.29 ratio (<1.00); Hepatitis C Virus Antibody Nonreactive (Nonreactive)
[2022-03-25 09:05] LABS: CRP 7.8 mg/dL (0.0-0.9)
[2022-03-25 12:42] LABS: Mitochondrial (M2) Ab (IgG) <=20.0 U (<=20.0)
[2022-03-26 11:31] LABS: LKM 1 Antibody <=20.0 U (<=20.0); Methylmalonic Acid 208 nmol/L (87-318)
== END 2022-03-22 16:32 | disposition home or self-care (01) ==
LOC: CHSLAB 16:33
PROVIDERS: PCP Internal Medicine; Visit Provider Internal Medicine
DX: D64.9 Anemia, unspecified (principal); R94.5 Abnormal results of liver function studies
CPT/HCPCS: 36415; 80053; 80074; 82728; 83516; 83520; 83540; 83550; 83921; 84155; 84165; 85025; 85046; 86038; 86140; 86334; 86376

== ENCOUNTER 2022-04-09 13:55 | Outpatient (CLI) | payer MEDICARE, MEDICAID, SELFPAY ==
--- NOTE | ~2022-04-09 | CT_ITS ---
EXAMINATION: CT abdomen pelvis w con INDICATION: Abdominal pain and diarrhea TECHNIQUE: Computed tomographic images of the abdomen and pelvis were obtained after the administrati on of 100 cc of Omnipaque 350 intravenous contrast. The dose-length product (DLP) was 1073.99 mGy-cm. Automated exposure control and iterative reconstruction technique were employed. COMPARISON: 12/15/2011 FINDINGS: The lung bases are clear. The heart size is normal. The liver, spleen, pancreas, gallbladde r, and adrenal glands are normal. The kidneys are unremarkable. There is mild wall thickening of the colon, from the proximal descending colon through the rectum, with subtle adjacent pericolic fat stra nding. There is chronic mild right abdominal lymphadenopathy. There is no free intraperitoneal gas or evidence of bowel obstruction. Thoracolumbar levocurvature is noted. IMPRESSION: 1. Mild wall thickening of the colon from the splenic flexure through the distal sigmoid, consistent with mild colitis. Reviewed, dictated and finalized at location B. IMPRESSION: 1. Mild wall thickening of the colon from the splenic flexure through the dista l sigmoid, consistent with mild colitis.
--- NOTE | ~2022-04-09 | XR_ITS ---
EXAMINATION: XR foot LT min 3V DATE: 04/09/2022 15:05 INDICATION: Left foot pain TECHNIQUE: Dorsoplantar, lateral, and 2 oblique views of the left foot were obtained. COMPARISON: 07/04/2014 FINDINGS: There is soft tissue swelling of the foot. Bone alignment is normal. There is no fracture. The joint spaces are normal. IMPRESSION: 1. Soft tissue swelling without acute osseous abnormality. Reviewed, dictated and finalized at location B.
[2022-04-09 14:23] LABS: Basophils Absolute Auto 0.03 K/mm3 (0.00-0.10); Basophils Percent Auto 0.3 % (0.0-1.0); Eosinophils Absolute Auto 0.32 K/mm3 (0.02-0.50); Eosinophils Percent Auto 3.2 % (1.0-6.0); Hematocrit 34.1 % (35.0-49.0); Hemoglobin 10.6 g/dL (12.0-15.0); Immature Granulocyte Absolute 0.09 K/mm3 (0.00-0.00); Immature Granulocyte Percent A 0.9 % (0.0-0.0); Lymphocytes Absolute Auto 1.81 K/mm3 (1.10-4.50); Lymphocytes Percent Auto 17.9 % (18.0-42.0); Mean Corpuscular HGB Conc 31.1 g/dL (32.0-36.0); Mean Corpuscular Hemoglobin 26.7 pg (27.0-31.0); Mean Corpuscular Volume 85.9 fL (78.0-102.0); Mean Platelet Volume 8.9 fl (9.2-11.8); Monocytes Absolute Auto 0.84 K/mm3 (0.10-0.90); Monocytes Percent Auto 8.3 % (2.0-11.0); Neutrophils Percent Auto 69.4 % (50.0-70.0); Platelet Count Result 495 K/mm3 (150-420); Red Blood Count 3.97 M/mm3 (4.20-5.40); Red Cell Distribution Width 15.5 % (11.6-14.4); White Blood Count 10.1 K/mm3 (4.8-10.8)
[2022-04-09 14:39] LABS: Alanine Aminotransferase 12 U/L (14-59); Albumin Level 2.2 g/dL (3.4-5.0); Alkaline Phosphatase 71 U/L (46-116); Anion Gap 8 mmol/L (8-16); Aspartate Amino Transferase 21 U/L (15-37); Bilirubin,Total 0.3 mg/dL (0.00-1.00); Blood Urea Nitrogen 9 mg/dL (7-18); Calcium 9.4 mg/dL (8.5-10.1); Carbon Dioxide 29 mmol/L (21-32); Chloride 98 mmol/L (98-108); Estimated Glomerular Filt Rate > 60; Glucose 178 mg/dL (70-99); Osmolality Calculated 282 mOsm/kg (285-295); Potassium 3.9 mmol/L (3.5-5.1); Sodium 135 mmol/L (136-145); Total Protein 9.2 g/dL (6.4-8.2)
[2022-04-09 16:26] LABS: Iron 23 ug/dL (50-170); Percent Iron Saturation 8 % (12-57)
[2022-04-09 16:27] LABS: CRP > 20.0 mg/dL (0.0-0.9)
== END 2022-04-09 13:56 | disposition home or self-care (01) ==
PROVIDERS: PCP Internal Medicine; Visit Provider Nurse Practitioner Family
DX: R10.9 Unspecified abdominal pain (principal); M79.672 Pain in left foot; D64.9 Anemia, unspecified; E11.9 Type 2 diabetes mellitus without complications
CPT/HCPCS: 36415; 73630; 74177; 80053; 83540; 83550; 85025; 86038; 86140; Q9967

== ENCOUNTER 2022-05-28 15:29 | Outpatient (CLI) | payer MEDICARE, SELFPAY ==
[2022-05-28 15:49] LABS: Basophils Absolute Auto 0.04 K/mm3 (0.00-0.10); Basophils Percent Auto 0.5 % (0.0-1.0); Eosinophils Absolute Auto 0.26 K/mm3 (0.02-0.50); Eosinophils Percent Auto 3.5 % (1.0-6.0); Hemoglobin 10.3 g/dL (12.0-15.0); Immature Granulocyte Absolute 0.04 K/mm3 (0.00-0.00); Immature Granulocyte Percent A 0.5 % (0.0-0.0); Lymphocytes Absolute Auto 1.83 K/mm3 (1.10-4.50); Lymphocytes Percent Auto 24.4 % (18.0-42.0); Mean Corpuscular HGB Conc 30.3 g/dL (32.0-36.0); Mean Corpuscular Hemoglobin 26.2 pg (27.0-31.0); Mean Corpuscular Volume 86.5 fL (78.0-102.0); Mean Platelet Volume 8.8 fl (9.2-11.8); Monocytes Absolute Auto 0.65 K/mm3 (0.10-0.90); Monocytes Percent Auto 8.7 % (2.0-11.0); Neutrophils Absolute Auto 4.7 K/mm3 (1.7-7.2); Neutrophils Percent Auto 62.4 % (50.0-70.0); Platelet Count Result 493 K/mm3 (150-420); Red Blood Count 3.93 M/mm3 (4.20-5.40); Red Cell Distribution Width 16.3 % (11.6-14.4); White Blood Count 7.5 K/mm3 (4.8-10.8)
[2022-05-28 16:14] LABS: Alanine Aminotransferase 12 U/L (14-59); Albumin Level 2.6 g/dL (3.4-5.0); Alkaline Phosphatase 63 U/L (46-116); Anion Gap 6 mmol/L (8-16); Aspartate Amino Transferase 15 U/L (15-37); Bilirubin,Total 0.2 mg/dL (0.00-1.00); Blood Urea Nitrogen 15 mg/dL (7-18); CRP 5.2 mg/dL (0.0-0.9); Carbon Dioxide 25 mmol/L (21-32); Chloride 100 mmol/L (98-108); Estimated Glomerular Filt Rate > 60; Glucose 187 mg/dL (70-99); Osmolality Calculated 277 mOsm/kg (285-295); Potassium 3.7 mmol/L (3.5-5.1); Sodium 131 mmol/L (136-145); Total Protein 9.5 g/dL (6.4-8.2); Uric Acid 4.2 mg/dL (2.6-6.0)
[2022-05-28 16:15] LABS: Hemoglobin A1C 7.3 % (<5.7)
== END 2022-05-28 15:30 | disposition home or self-care (01) ==
LOC: CHSLAB 15:31
PROVIDERS: PCP Internal Medicine; Visit Provider Internal Medicine
DX: M79.671 Pain in right foot (principal); K51.90 Ulcerative colitis, unspecified, without complications; E11.9 Type 2 diabetes mellitus without complications
CPT/HCPCS: 36415; 80053; 83036; 84550; 85025; 86140

== ENCOUNTER 2022-07-06 14:44 | Outpatient (CLI) | payer MEDICARE, MEDICAID, SELFPAY ==
--- NOTE | ~2022-07-06 | XR_ITS ---
EXAM: XR_CERV2-3V_CR DATE: 07/06/2022 15:33 HISTORY: Neck and lower back pain . COMPARISON: None available. FINDINGS: Craniocervical association and atlantoaxial joint are aligned. No prevertebral soft tissue swelling. Vertebral bodies are aligned. Cervical spine straightening as can occur with positioning o r spasm Vertebral body heights and disc spaces are maintained. Normal facets and posterior elements. IMPRESSION: No acute fracture or traumatic malalignment in the cervical spine. Reviewed, dictated and finalized at location K.
--- NOTE | ~2022-07-06 | XR_ITS ---
EXAM: XR lumbar spine 2-3V DATE: 07/06/2022 15:33 HISTORY: Neck and lower back pain . COMPARISON: None available. FINDINGS: Mild lumbar scoliosis. Lumbar straightening 5 nonrib-bearing lumbar-type vertebral bodies. Pedicles intact. Normal vertebral body alignment. Vertebral body heights preserved. Disc spaces maint ained. Normal facets and posterior elements. No fracture or dislocation. IMPRESSION: Mild scoliosis. Reviewed, dictated and finalized at location K. IMPRESSION: Mild scoliosis.
== END 2022-07-06 14:45 | disposition home or self-care (01) ==
PROVIDERS: PCP Internal Medicine; Visit Provider Internal Medicine
DX: M54.2 Cervicalgia (principal); M54.50 Low back pain, unspecified
CPT/HCPCS: 72040; 72100

== ENCOUNTER 2022-08-09 12:07 | Emergency (ER) | payer MEDICARE, MEDICAID, SELFPAY ==
--- NOTE | 2022-08-09 12:20 | PC.NURSE ---
patient left without being seen. patient wanted to be in room with mother, after being told she cannot be in the room with her mother or have any visitors if she is here to be tested for covid she stated she was going to go to her dr's office and have them send over an outpatient swab.
== END 2022-08-09 12:22 | disposition left against medical advice (07) ==
PROVIDERS: Emergency Provider Internal Medicine Critical Care Medicine; PCP Internal Medicine
DX: Z04.9 Encounter for examination and observation for unspecified reason (principal)
CPT/HCPCS: 99199

== ENCOUNTER 2022-08-09 16:57 | Outpatient (CLI) | payer MEDICARE, SELFPAY ==
[2022-08-09 17:32] LABS: Hematocrit 36.6 % (35.0-49.0); Hemoglobin 11.1 g/dL (12.0-15.0); Mean Corpuscular HGB Conc 30.3 g/dL (32.0-36.0); Mean Corpuscular Hemoglobin 24.4 pg (27.0-31.0); Mean Corpuscular Volume 80.6 fL (78.0-102.0); Mean Platelet Volume 10.1 fl (9.2-11.8); Platelet Count Result 372 K/mm3 (150-420); Red Blood Count 4.54 M/mm3 (4.20-5.40); Red Cell Distribution Width 15.8 % (11.6-14.4)
[2022-08-09 18:06] LABS: Alanine Aminotransferase 18 U/L (14-59); Albumin Level 3.1 g/dL (3.4-5.0); Alkaline Phosphatase 90 U/L (46-116); Anion Gap 7 mmol/L (8-16); Aspartate Amino Transferase 16 U/L (15-37); Bilirubin,Total 0.2 mg/dL (0.00-1.00); Blood Urea Nitrogen 10 mg/dL (7-18); CRP 5.5 mg/dL (0.0-0.9); Calcium 8.5 mg/dL (8.5-10.1); Carbon Dioxide 30 mmol/L (21-32); Chloride 101 mmol/L (98-108); Estimated Glomerular Filt Rate 47; Ferritin 48 ng/mL (8-252); Glucose 94 mg/dL (70-99); Iron 22 ug/dL (50-170); Osmolality Calculated 285 mOsm/kg (285-295); Percent Iron Saturation 7 % (12-57); Potassium 3.6 mmol/L (3.5-5.1); Sodium 138 mmol/L (136-145); Total Protein 8.7 g/dL (6.4-8.2)
[2022-08-09 18:07] LABS: Influenza A QL RT-PCR Negative (Negative); Influenza B QL RT-PCR Negative (Negative); SARS-CoV-2 RNA PCR Negative (Negative)
[2022-08-09 18:33] LABS: Erythrocyte Sedimentation Rate 49 mm/hr (0-15)
[2022-08-12 21:57] LABS: Vitamin D 1,25 (OH)2 Total 52 pg/mL (18-72); Vitamin D2 1,25 (OH)2 <8 pg/mL; Vitamin D3 1,25 (OH)2 52 pg/mL
[2022-08-14 20:53] LABS: Gliadin AB, IgG <1.0 U/mL (<15.0); TTG IGA AB <1.0 U/mL (<15.0)
== END 2022-08-09 16:58 | disposition home or self-care (01) ==
LOC: CHSLAB 16:59
PROVIDERS: PCP Internal Medicine; Visit Provider Nurse Practitioner
DX: J06.9 Acute upper respiratory infection, unspecified (principal); Z20.822 Contact with and (suspected) exposure to COVID-19; R53.83 Other fatigue; R93.3 Abnormal findings on diagnostic imaging of other parts of digestive tract; K52.9 Noninfective gastroenteritis and colitis, unspecified; D50.9 Iron deficiency anemia, unspecified; K92.1 Melena; R63.4 Abnormal weight loss; E55.9 Vitamin D deficiency, unspecified
CPT/HCPCS: 36415; 80053; 82652; 82728; 83516; 83540; 83550; 85027; 85652; 86140; 87502; U0003; U0005

== ENCOUNTER 2022-08-22 00:39 | Emergency (ER) | payer MEDICARE, MEDICAID, SELFPAY ==
--- NOTE | ~2022-08-22 | XR_ITS ---
EXAMINATION: XR chest 1V portable DATE: 08/22/2022 02:13 INDICATION: Chest pain TECHNIQUE: frontal view of the chest was obtained. COMPARISON: Chest radiograph dated 01/31/2022 FINDINGS: The lungs remain clear with no focal airspace opacities, pulmonary edema, pleural effusion or pneumot horax. The cardiomediastinal silhouette is normal. 20 degree thoracic dextroscoliosis. IMPRESSION: 1. No acute cardiopulmonary disease. Reviewed, dictated and finalized at location A. 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
--- NOTE | 2022-08-22 00:41 | ED.CHESTPAIN ---
HPI - Chest Pain General Chief Complaint: Chest Pain Stated Complaint: Chest Pain Time Seen by Provider: 08/22/22 00:40 Source: patient Mode of arrival: ambulatory History of Present Illness HPI narrative: old history of, iron deficiency anemia, GERD, anxiety /depression, diabetes mellitus, hypothyroidism presents to the ER with a 2 week history of -- substernal chest pain radiating to her neck and left arm. pain is intermittent without any precipitating factors. When the pain comes on it lasts approximately 1 hour. the pain had been 5/10 for the past 2 weeks but it became 9/10 prior to coming to the hospital. -- Shortness of breath during pain episodes -- lightheadedness during pain episodes she has had left arm pain in the past which has not been worked up. The patient received aspirin and sublingual nitro without any affect on her chest pain. The EKG done by EMS was noted to be unremarkable. MD complaint: chest pain Onset (ago): week(s) ( Started 2 weeks ago) Timing of current episode: episodic Prior episodes: No Onset: during rest Pain location: substernal Pain radiation: left arm and neck Severity: moderate Quality: aching Relieving factors: nothing Exacerbating factors: nothing Risk Factors Coronary artery disease risk factors: diabetes Thoracic aortic dissection risk factors: none Related Data On Oral Contraceptives: No Home Medications Medication Instructions Recorded Confirmed albuterol sulfate 1 puff Q6-8H PRN Wheezing 02/15/22 08/22/22 diclofenac sodium 75 mg DAILY 02/15/22 08/22/22 duloxetine 20 mg BID 02/15/22 08/22/22 famotidine 40 mg DAILY 02/15/22 08/22/22 gabapentin 300 mg TID 02/15/22 08/22/22 levothyroxine 25 mcg DAILY 02/15/22 08/22/22 pioglitazone 15 mg DAILY 02/15/22 08/22/22 Allergies Allergy/AdvReac Type Severity Reaction Status Date / Time adhesive Allergy Unknown Rash Verified 08/22/22 00:52 amoxicillin Allergy Unknown Rash Verified 08/22/22 00:52 dexmethylphenidate Allergy Unknown aggressiven Verified 08/22/22 00:52 ess Penicillins Allergy Unknown Rash Verified 08/22/22 00:52 cephalexin Allergy Unknown Verified 08/22/22 00:52 Review of Systems Review of Systems: All systems reviewed & are unremarkable except as noted in HPI and below Constitutional: Constitutional: Reports no additional constitutional complaints Eyes: Eyes: Reports as per HPI and Reports no additional eye complaints ENT: Reports system reviewed and no additional complaints, except as documented and Reports as per HPI Cardiovascular: Cardiovascular: Reports as per HPI, Reports no additional cardiovascular complaints, Reports chest pain and Reports radiating jaw, neck or arm pain Respiratory: Respiratory: Reports as per HPI and Reports no additional respiratory complaints Gastrointestinal: Gastrointestinal: Reports as per HPI and Reports no additional gastrointestinal complaints Genitourinary: Genitourinary: Reports no additional female genitourinary complaints and Reports as per HPI Musculoskeletal: Musculoskeletal: Reports no additional musculoskeletal complaints and Reports as per HPI Integumentary/Breasts: Skin/Breast: Reports system reviewed and no additional complaints, except as docu and Reports as per HPI Neurologic: Reports system reviewed and no additional complaints, except as documented and Reports as per HPI Psychiatric: Psychiatric: Reports no additional psychiatric complaints and Reports as per HPI Endocrine: Endocrine: Reports no additional endocrine complaints and Reports as per HPI Hematologic/Lymphatic: Hematologic/Lymphatic: Reports no additional hematologic/lymphatic complaints and Reports as per HPI Allergic/Immunologic: Allergic/Immunologic: Reports no additional allergic/immunologic complaints and Reports as per HPI PMF Past Medical History Medical History Anxiety Depression GERD (gastroesophageal reflux disease) Hyp
[2022-08-22 00:43] VITALS: BP 113/72; PULSE 83; RESP 16; TEMP 36.3; O2SAT 99
--- NOTE | 2022-08-22 00:53 | ECG_ITS ---
Measurements Intervals [place] Rate: 83 P: 55 NC: 133 QRS: 54 QRSD: 86 T: 15 QT: 328 QTc: 387 Interpretive Statements SINUS RHYTHM BORDERLINE ST-T WAVE ABNORMALITY- INFERIOR LEADS BASELINE ARTIFACT- II, III BORDERLINE ECG COMPARED TO ECG 02/15/2022 15:54:00 SINUS RHYTHM NOW PRESENT Electronically Signed On 08-22-2022 7:04:27 RETAIL TRAINING MANAGER by Noel Sanz D.O.
[2022-08-22 01:25] LABS: Basophils Absolute Auto 0.04 K/mm3 (0.00-0.10); Basophils Percent Auto 0.5 % (0.0-1.0); Eosinophils Absolute Auto 0.34 K/mm3 (0.02-0.50); Eosinophils Percent Auto 4.6 % (1.0-6.0); Hematocrit 33.6 % (35.0-49.0); Hemoglobin 10.7 g/dL (12.0-15.0); Immature Granulocyte Absolute 0.02 K/mm3 (0.00-0.00); Immature Granulocyte Percent A 0.3 % (0.0-0.0); Lymphocytes Absolute Auto 1.88 K/mm3 (1.10-4.50); Lymphocytes Percent Auto 25.6 % (18.0-42.0); Mean Corpuscular HGB Conc 31.8 g/dL (32.0-36.0); Mean Corpuscular Hemoglobin 25.5 pg (27.0-31.0); Mean Corpuscular Volume 80.2 fL (78.0-102.0); Mean Platelet Volume 9.6 fl (9.2-11.8); Monocytes Absolute Auto 0.64 K/mm3 (0.10-0.90); Monocytes Percent Auto 8.7 % (2.0-11.0); Neutrophils Absolute Auto 4.4 K/mm3 (1.7-7.2); Neutrophils Percent Auto 60.3 % (50.0-70.0); Platelet Count Result 347 K/mm3 (150-420); Red Blood Count 4.19 M/mm3 (4.20-5.40); White Blood Count 7.4 K/mm3 (4.8-10.8)
[2022-08-22 01:49] LABS: Alanine Aminotransferase 9 U/L (14-59); Albumin Level 2.8 g/dL (3.4-5.0); Alkaline Phosphatase 74 U/L (46-116); Anion Gap 6 mmol/L (8-16); Aspartate Amino Transferase 12 U/L (15-37); Bilirubin,Total 0.2 mg/dL (0.00-1.00); Blood Urea Nitrogen 10 mg/dL (7-18); Calcium 8.7 mg/dL (8.5-10.1); Carbon Dioxide 29 mmol/L (21-32); Chloride 103 mmol/L (98-108); Estimated CRCL calculation 76 ml/min; Estimated Glomerular Filt Rate > 60; Glucose 114 mg/dL (70-99); Osmolality Calculated 286 mOsm/kg (285-295); Potassium 3.3 mmol/L (3.5-5.1); Sodium 138 mmol/L (136-145); Total Protein 8.8 g/dL (6.4-8.2)
[2022-08-22 01:50] LABS: Thyroid Stimulating Hormone 1.83 uIU/mL (0.36-3.74); Troponin I < 4.0 ng/L (0.00-60.4)
[2022-08-22 01:54] LABS: Partial Thromboplastin Time 30.7 SEC (23.90-30.70); Prothrombin Time 10.6 Seconds (9.50-12.10)
[2022-08-22 01:55] LABS: Add Urine Microscopic? YES; Appearance Urine Clear (Clear); Bilirubin Urine Negative (Negative); Blood Urine Negative (Negative); Color Urine Yellow (Yellow); Glucose Urine UA Negative (Negative); Ketones Urine Negative (Negative); Leukocyte Esterase Ur Negative (Negative); Nitrate Urine Negative (Negative); Protein Urine 1+ (Negative); Specific Grav Ur >= 1.030 (1.010-1.020); Urobilinogen Urine 0.2 mg/dL (0.2-1.0)
[2022-08-22 01:57] LABS: Pregnancy On Board Control Positive; Urine Pregnancy Test Negative
[2022-08-22 02:04] LABS: Bacteria Urine 1+ /hpf; Mucus Urine Heavy /lpf; RBC Urine 0-2 /hpf (0-2); Squamous Epithelial Cell Urine Many /hpf (Few); WBC Urine 0-3 /hpf (0-3)
[2022-08-22 02:19] VITALS: BP 107/73; PULSE 82; RESP 16; O2SAT 98
== END 2022-08-22 02:25 | disposition home or self-care (01) ==
PROVIDERS: Emergency Provider Internal Medicine Critical Care Medicine; PCP Internal Medicine
DX: R07.89 Other chest pain (principal); D64.9 Anemia, unspecified; K21.9 Gastro-esophageal reflux disease without esophagitis; E03.9 Hypothyroidism, unspecified; E11.9 Type 2 diabetes mellitus without complications
CPT/HCPCS: 36415; 71045; 80053; 81001; 81025; 84443; 84484; 85025; 85610; 85730; 93005; 99284

== ENCOUNTER 2022-08-30 12:52 | Outpatient (CLI) | payer MEDICARE, MEDICAID, SELFPAY ==
[2022-08-30 13:35] LABS: Hemoglobin A1C 6.3 % (<5.7)
== END 2022-08-30 12:53 | disposition home or self-care (01) ==
LOC: CHSLAB 12:54
PROVIDERS: PCP Internal Medicine; Visit Provider Internal Medicine
DX: E11.9 Type 2 diabetes mellitus without complications (principal)
CPT/HCPCS: 36415; 83036

== ENCOUNTER 2022-10-13 15:23 | Outpatient (CLI) | payer MEDICARE, MEDICAID, SELFPAY ==
[2022-10-13 15:48] LABS: Hematocrit 36.3 % (37.0-47.0); Hemoglobin 11.6 g/dL (12.0-15.0); Mean Corpuscular Hemoglobin 25.4 pg (26-34); Mean Corpuscular Volume 79.6 fl (80-100); Mean Platelet Volume 9.5 fl (7.4-10.4); Platelet Count Result 356 k/mm3 (150-375); Red Blood Count 4.56 M/mm3 (4.2-5.4); Red Cell Distribution Width 16.3 % (11.5-14.5); White Blood Count 6.2 K/mm3 (4.5-10.0)
[2022-10-13 16:04] LABS: CRP 1.8 mg/dL (<1.0)
[2022-10-13 16:58] LABS: Erythrocyte Sedimentation Rate 22 mm/hr (0-20)
[2022-10-13 17:34] LABS: Iron 58 ug/dL (37-170)
[2022-10-13 17:46] LABS: Percent Iron Saturation 14 % (20-50)
== END 2022-10-13 15:24 | disposition home or self-care (01) ==
LOC: ANHLAB 15:26
PROVIDERS: PCP Internal Medicine; Visit Provider Nurse Practitioner
DX: D50.9 Iron deficiency anemia, unspecified (principal); R63.4 Abnormal weight loss; K52.9 Noninfective gastroenteritis and colitis, unspecified; E11.9 Type 2 diabetes mellitus without complications; E03.9 Hypothyroidism, unspecified
CPT/HCPCS: 36415; 82728; 83540; 83550; 85027; 85652; 86140

== ENCOUNTER 2022-11-05 00:47 | Day surgery (SDC) | payer MEDICARE, MEDICAID, SELFPAY ==
[2022-10-27 10:18] VITALS: BMI 30.9
[2022-11-05 12:49] VITALS: BP 103/68; PULSE 79; RESP 17; TEMP 36.1; O2SAT 100; BMI 30.5
[2022-11-05 13:12] LABS: Glucose Point of Care 87 mg/dl (65-105)
[2022-11-05] MEDS: LACTATED RINGERS 1,000 ML 150 ML IV CONT (13:12)
--- NOTE | 2022-11-05 13:23 | WPDANESEPPF ---
Anes - Initial Pre Proc Eval Procedure: Operation Date: 11/05/22 13:45 Proposed Procedures p Colonoscopy - Agustin Buck MD Date/Time: 11/05/22 13:23 Surgeon: Agustin Buck MD Pre Op Diagnosis: colitis Patient Data Age: 27 Gender: F Height: 1.68 m Weight: 85.9 kg Last Vital Signs Temp 97 F L 11/05/22 12:49 Pulse 79 11/05/22 12:49 Resp 17 11/05/22 12:49 BP 103/68 11/05/22 12:49 Pulse Ox 100 11/05/22 12:49 O2 Del Method Room Air 11/05/22 12:49 Allergies Allergy/AdvReac Type Severity Reaction Status Date / Time adhesive Allergy Intermediate Rash Verified 11/05/22 12:48 amoxicillin Allergy Intermediate Rash Verified 11/05/22 12:48 dexmethylphenidate Allergy Intermediate aggressiven Verified 11/05/22 12:48 ess Penicillins Allergy Intermediate Rash Verified 11/05/22 12:48 cephalexin Allergy Unknown Unknown Verified 11/05/22 12:48 Home Medications Medication Instructions Recorded Confirmed Type albuterol sulfate 90 mcg/actuation 1 puff inhalation Q4-6H PRN 10/21/22 11/05/22 History aerosol inhaler Shortness Of Breath Or Wheezing dulaglutide 1.5 mg/0.5 mL 1.5 mg subcut WEEKLY 10/21/22 11/05/22 History subcutaneous pen injector (Trulicity) levothyroxine 25 mcg capsule 25 mcg PO DAILY 10/21/22 11/05/22 History norgestimate 0.18 mg/0.215 mg/0.25 1 tablet PO DAILY 10/21/22 11/05/22 History mg-ethinyl estradiol 25 mcg tablet (Hyy-Sp-Hospadyh) propranolol 60 mg capsule,24 60 mg PO QPM 10/21/22 11/05/22 History hr,extended release diclofenac sodium 75 mg 75 mg PO DAILY 10/27/22 11/05/22 History tablet,delayed release duloxetine 20 mg capsule,delayed 20 mg PO DAILY 10/27/22 11/05/22 History release famotidine 20 mg tablet 40 mg PO DAILY 10/27/22 11/05/22 History ferrous gluconate 324 mg (38 mg 324 mg PO DAILY 10/27/22 11/05/22 History iron) tablet gabapentin 300 mg capsule 300 mg PO TID 10/27/22 11/05/22 History ketoconazole 2 % topical cream 1 applic topical BID 10/27/22 11/05/22 History mupirocin 2 % topical ointment 1 applic topical BID 10/27/22 11/05/22 History potassium 99 mg tablet 99 mg PO DAILY 10/27/22 11/05/22 History sulfamethoxazole 800 1 tablet PO Q12H 10 days #20 tabs 11/04/22 11/05/22 Rx mg-trimethoprim 160 mg tablet (Bactrim DS) Laboratory Tests 11/05/22 13:04 POC Capillary Glucose 87 mg/dl mg/dl (65-105) Patient hx anesthesia problems: none Family hx anesthesia problems: none Results Review: All pre-operative results and documents have been reviewed as part of the pre-operative evaluation. [facility] Past Medical History Medical History Anxiety Depression GERD (gastroesophageal reflux disease) Hypokalemia Hypothyroidism Iron deficiency anemia Left upper limb pain Morbid obesity Non-specific colitis Scoliosis Type 2 diabetes mellitus Weight loss Surgical History Surgical History History of axillary surgery History of tonsillectomy Family History Family History Father Hypertension Family history of elevated blood lipids Family history of coronary artery disease Family history of type 2 diabetes mellitus Mother Hypertension Family history of elevated blood lipids Family history of type 2 diabetes mellitus Social History Social History Smoking status: Never smoker Alcohol intake: current Substance use: never Substance use type: does not use Living arrangements: with family Gender identity (if verbalized by the patient): Female Spiritual care concerns: No Anes - Eval Final PreProcedure Day of Procedure 11/05/22 13:23 Patient weight: obese Heart: regular rate and rhythm Lungs: clear to auscultation Airway: Mallampati s
--- NOTE | 2022-11-05 13:25 | WPDHPUPDATE1 ---
History and Physical Update Update Date/Time: 11/05/22 13:25 History and Physical has been reviewed, including an updated exam of the patient. There are NO changes in the patient's condition. Risks, benefits, and alternatives have been discussed and questions answered. Patient agrees to proceed with procedure.
[2022-11-05 13:47] VITALS: BP 90/57; PULSE 85; RESP 16; O2SAT 100
[2022-11-05 13:57] VITALS: BP 96/58; PULSE 74; RESP 17; O2SAT 100
[2022-11-05 14:06] LABS: Glucose Point of Care 77 mg/dl (65-105)
[2022-11-05 14:07] VITALS: BP 104/67; PULSE 78; RESP 20; O2SAT 100
== END 2022-11-05 14:23 | disposition home or self-care (01) ==
PROVIDERS: PCP Internal Medicine; Visit Provider Internal Medicine Gastroenterology
PROC: 0DJD8ZZ Inspection of Lower Intestinal Tract, Via Natural or Artificial Opening Endoscopic (ICD-10-PCS; CPT 45378; principal; 2022-11-05 13:45)
DX: K52.9 Noninfective gastroenteritis and colitis, unspecified (principal); E11.9 Type 2 diabetes mellitus without complications; D50.9 Iron deficiency anemia, unspecified; E03.9 Hypothyroidism, unspecified; K21.9 Gastro-esophageal reflux disease without esophagitis; F41.9 Anxiety disorder, unspecified; F32.A Depression, unspecified; Z79.51 Long term (current) use of inhaled steroids; Z79.899 Other long term (current) drug therapy; E66.9 Obesity, unspecified; Z68.30 Body mass index [BMI] 30.0-30.9, adult
CPT/HCPCS: 45380; 82948; 88305; J2704; J7120

== ENCOUNTER 2022-11-16 05:53 | Emergency (ER) | payer MEDICARE, MEDICAID, SELFPAY ==
--- NOTE | ~2022-11-16 | XR_ITS ---
XR chest 1V portable DATE: 11/16/2022 06:44 INDICATION: Chest pain, shortness of breath TECHNIQUE: Portable upright AP chest on November 16, 2022 at 0640 hours COMPARISON: 08/22/2022 portable AP chest at 0220 hours FINDINGS: Prominent thoracic dextroscoliosis and lumbar levoscoliosis. Normal heart size. No hilar or mediastinal enlargement. No pulmonary infiltrate or consolidation, ple ural effusion or pulmonary vascular congestion or pneumothorax. IMPRESSION: No active cardiac pulmonary disease Prominent thoracic and lumbar scoliosis Reviewed, dictated and finalized at location A. RITIES UNDERWRITER
[2022-11-16 06:00] VITALS: O2SAT 98
[2022-11-16 06:03] VITALS: BP 103/65; PULSE 82; RESP 18; TEMP 36.4; O2SAT 98
[2022-11-16 06:03] LABS: Glucose Point of Care 102 mg/dl (65-105)
--- NOTE | 2022-11-16 06:09 | ED.GENADULT ---
HPI - General Adult General Chief complaint: Unspecified Stated complaint: Chest Pain Time Seen by Provider: 11/16/22 07:25 History of Present Illness HPI narrative: The patient is a 27-year-old woman with history of diabetes type 1 insulin dependent, hypothyroidism, obesity 86 kg, GERD, and anxiety disorder. She is seen here multiple times per year for nonspecific complaints. Most recently, she was seen August 22, 2022 for chest pain dyspnea lightheadedness and left arm symptoms. She presents with similar complaints of lightheadedness onset at approximately 5:00 a.m. after she has been up all night playing on her tablet. She subsequently developed substernal chest discomfort that radiated to the left shoulder and left jaw and left arm and also the left leg. No cough or rhinorrhea or nasal congestion or sore throat or fevers or chills. EMS was notified, Accu-Chek was 62 and then on repeat 66. She received oral glucagon. Accu-Chek on arrival in the emergency room was 102. Denies any abdominal pain or nausea or vomiting or urinary symptoms such as urgency dysuria or frequency. No cough. No dyspnea. Related Data Home Medications Medication Instructions Recorded Confirmed albuterol sulfate 90 mcg/actuation 1 puff inhalation Q4-6H PRN 10/21/22 11/16/22 aerosol inhaler Shortness Of Breath Or Wheezing dulaglutide 1.5 mg/0.5 mL 1.5 mg subcut WEEKLY 10/21/22 11/16/22 subcutaneous pen injector (Trulicity) levothyroxine 25 mcg capsule 25 mcg PO DAILY 10/21/22 11/16/22 norgestimate 0.18 mg/0.215 mg/0.25 1 tablet PO DAILY 10/21/22 11/16/22 mg-ethinyl estradiol 25 mcg tablet (Bne-My-Ufnveafx) propranolol 60 mg capsule,24 60 mg PO QPM 10/21/22 11/16/22 hr,extended release diclofenac sodium 75 mg 75 mg PO DAILY 10/27/22 11/16/22 tablet,delayed release duloxetine 20 mg capsule,delayed 20 mg PO DAILY 10/27/22 11/16/22 release famotidine 20 mg tablet 40 mg PO DAILY 10/27/22 11/16/22 ferrous gluconate 324 mg (38 mg 324 mg PO DAILY 10/27/22 11/16/22 iron) tablet gabapentin 300 mg capsule 300 mg PO TID 10/27/22 11/16/22 potassium 99 mg tablet 99 mg PO DAILY 10/27/22 11/16/22 pioglitazone 15 mg tablet 15 mg PO DAILY 11/16/22 11/16/22 Allergies Allergy/AdvReac Type Severity Reaction Status Date / Time adhesive Allergy Intermediate Rash Verified 11/19/22 14:11 amoxicillin Allergy Intermediate Rash Verified 11/19/22 14:11 dexmethylphenidate Allergy Intermediate aggressiven Verified 11/19/22 14:11 ess Penicillins Allergy Intermediate Rash Verified 11/19/22 14:11 cephalexin Allergy Unknown Unknown Verified 11/19/22 14:11 Review of Systems Review of Systems: All systems reviewed & are unremarkable except as noted in HPI and below Constitutional: Constitutional: Reports as per HPI, Reports no additional constitutional complaints, Denies chills, Denies excessive sweating, Reports fatigue, Denies fever(s), Denies headache(s), Reports malaise and Reports weakness Eyes: Eyes: Reports as per HPI, Reports no additional eye complaints, Denies change in vision and Denies photophobia ENT: Reports system reviewed and no additional complaints, except as documented, Reports as per HPI, Denies dysphagia, Denies vertigo, Reports dizziness, Denies headache(s), Denies lip swelling, Denies nasal congestion, Denies sore throat, Denies throat swelling and Denies tongue swelling Cardiovascular: Cardiovascular: Reports as per HPI, Reports no additional cardiovascular complaints, Reports chest pain, Denies syncope, Denies rapid heart rate, Reports lightheadedness and Denies dyspnea Respiratory: Respiratory: Reports as per HPI, Reports no additional respiratory complaints, Denies chest congestion, Denies cough, Denies dyspnea and Denies wheezing Gastrointestinal: Gastrointestinal: Reports as per HPI, Reports no additional gastrointestinal complaints, Denies abdominal pain, Denies constipation, Denies dysphagia, Denies diarrhea, Denies nausea
--- NOTE | 2022-11-16 06:17 | ECG_ITS ---
Measurements Intervals [place] Rate: 81 P: 63 AR: 139 QRS: 92 QRSD: 82 T: 2 QT: 344 QTc: 401 Interpretive Statements SINUS RHYTHM BORDERLINE RIGHT AXIS DEVIATION [QRS AXIS > 90] COMPARED TO ECG 08/22/2022 00:54:08 NO SIGNIFICANT CHANGES Electronically Signed On 11-16-2022 16:31:31 AUTO APPRAISER by Soila Flores M.D.
[2022-11-16] MEDS: MECLIZINE HCL 25 MG TABLET 50 MG PO (06:29)
[2022-11-16] MEDS: ACETAMINOPHEN 500 MG TABLET 1000 MG PO (06:29)
[2022-11-16] MEDS: IBUPROFEN 400 MG TABLET 800 MG PO (06:30)
[2022-11-16] MEDS: MAG HYDROX/ALUMINUM HYD/SIMETH 30 ML, PHENobarb/HYOSCY/ATROPINE/SCOP 32.4 MG, LIDOCAINE... PO (06:31)
[2022-11-16] MEDS: SODIUM CHLORIDE 0.9% IV 1,000 ML 999 ML IV CONT (06:33)
[2022-11-16 06:40] LABS: Appearance Urine Cloudy (Clear); Bilirubin Urine 1+ (Negative); Blood Urine Negative (Negative); Glucose Urine UA Negative (Negative); Ketones Urine Trace (Negative); Leukocyte Esterase Ur 1+ LEU/UL (Negative); Nitrate Urine Negative (Negative); Protein Urine 1+ (Negative); Specific Grav Ur >= 1.030 (1.010-1.020); pH Urine 5.5 (5.0-8.0)
[2022-11-16 06:40] LABS: Basophils Absolute Auto 0.03 K/mm3 (0.00-0.10); Basophils Percent Auto 0.6 % (0.0-1.0); Eosinophils Absolute Auto 0.29 K/mm3 (0.02-0.50); Eosinophils Percent Auto 5.4 % (1.0-6.0); Hematocrit 35.6 % (35.0-49.0); Hemoglobin 11.2 g/dL (12.0-15.0); Immature Granulocyte Absolute 0.02 K/mm3 (0.00-0.00); Immature Granulocyte Percent A 0.4 % (0.0-0.0); Lymphocytes Absolute Auto 1.97 K/mm3 (1.10-4.50); Lymphocytes Percent Auto 36.4 % (18.0-42.0); Mean Corpuscular HGB Conc 31.5 g/dL (32.0-36.0); Mean Corpuscular Hemoglobin 26.3 pg (27.0-31.0); Mean Corpuscular Volume 83.6 fL (78.0-102.0); Mean Platelet Volume 9.3 fl (9.2-11.8); Monocytes Absolute Auto 0.53 K/mm3 (0.10-0.90); Monocytes Percent Auto 9.8 % (2.0-11.0); Neutrophils Absolute Auto 2.6 K/mm3 (1.7-7.2); Neutrophils Percent Auto 47.4 % (50.0-70.0); Platelet Count Result 366 K/mm3 (150-420); Red Blood Count 4.26 M/mm3 (4.20-5.40); Red Cell Distribution Width 15.4 % (11.6-14.4); White Blood Count 5.4 K/mm3 (4.8-10.8)
[2022-11-16 06:43] VITALS: BP 102/69; PULSE 79; PULSE 83; RESP 18; O2SAT 98
[2022-11-16 06:45] VITALS: BP 103/63; PULSE 79
[2022-11-16 06:50] VITALS: BP 100/66; PULSE 85
[2022-11-16 06:50] LABS: Add Urine Microscopic? YES; Bacteria Urine 2+ /hpf; Color Urine Dark Yellow (Yellow); Squamous Epithelial Cell Urine Moderate /hpf (Few)
[2022-11-16 06:51] LABS: Amphetamine Screen Urine Negative (Negative); Barbiturate Screen Urine Negative (Negative); Benzodiazepines Screen Urine Negative (Negative); Cannabinoid Screen Urine Negative (Negative); Cocaine Screen Urine Negative (Negative); Methadone Screen Urine Negative (Negative); Opiate Screen Urine Negative (Negative); Phencyclidine Screen Urine Negative (Negative)
[2022-11-16 06:56] LABS: D Dimer 0.85 mg/L (0.19-0.50)
[2022-11-16 07:00] LABS: SPREG INTERNAL CONTROL Positive; Serum Qual hCG Negative
[2022-11-16 07:03] LABS: Alanine Aminotransferase 11 U/L (14-59); Albumin Level 2.7 g/dL (3.4-5.0); Alkaline Phosphatase 91 U/L (46-116); Anion Gap 7 mmol/L (8-16); Aspartate Amino Transferase < 10 U/L (15-37); Bilirubin,Total 0.2 mg/dL (0.00-1.00); Blood Urea Nitrogen 10 mg/dL (7-18); CRP 7.7 mg/dL (0.0-0.9); Calcium 8.3 mg/dL (8.5-10.1); Carbon Dioxide 27 mmol/L (21-32); Chloride 98 mmol/L (98-108); Estimated CRCL calculation 71 ml/min; Estimated Glomerular Filt Rate 55; Glucose 159 mg/dL (70-99); Magnesium 1.9 mg/dL (1.8-2.4); Osmolality Calculated 276 mOsm/kg (285-295); Potassium 3.5 mmol/L (3.5-5.1); Sodium 132 mmol/L (136-145); Total Protein 8.8 g/dL (6.4-8.2)
[2022-11-16 07:12] LABS: Strep Group A RT-PCR NOT DETECTED (Negative)
[2022-11-16 07:21] LABS: Influenza A QL RT-PCR Negative (Negative); Influenza B QL RT-PCR Negative (Negative); SARS-CoV-2 RNA PCR Negative (Negative)
[2022-11-16 07:22] LABS: RSV RNA, RT-PCR Negative (Negative)
[2022-11-16 07:27] LABS: Troponin I < 4.0 ng/L (0.00-60.4)
--- NOTE | 2022-11-16 07:40 | PC.NURSE ---
pt to be dc home, dr mercado aware of d dimer results. nad noted. pt is playing games on cell phone without distress. no resp distress noted. will continue to monitor.
[2022-11-16] MEDS: SULFAMETHOXAZOLE/TRIMETHOPRIM 800/160 MG DS TABLET 1 TAB PO (07:45)
[2022-11-16 07:52] VITALS: BP 92/60; PULSE 63; RESP 18; TEMP 36.7; O2SAT 99
== END 2022-11-16 07:52 | disposition home or self-care (01) ==
PROVIDERS: Emergency Medicine; Emergency Provider Emergency Medicine; PCP Internal Medicine
DX: R07.9 Chest pain, unspecified (principal); R42 Dizziness and giddiness; N39.0 Urinary tract infection, site not specified; E10.9 Type 1 diabetes mellitus without complications; E03.9 Hypothyroidism, unspecified; F41.9 Anxiety disorder, unspecified; Z20.822 Contact with and (suspected) exposure to COVID-19; Z79.899 Other long term (current) drug therapy
CPT/HCPCS: 36415; 71045; 80053; 80307; 81001; 82948; 83735; 84484; 84703; 85025; 85380; 86140; 87086; 87088; 87637; 87651; 93005; 96360; 99284; A9270; J7030

== ENCOUNTER 2022-11-19 02:31 | Day surgery (SDC) | payer MEDICARE, MEDICAID, SELFPAY ==
[2022-11-16 14:08] VITALS: BMI 30.7
--- NOTE | 2022-11-16 14:15 | PC.NURSE ---
Report to the Outpatient Waiting Room, entrance under the green pavilion located off [facility], at time 1330 on date 11/19/22. Planned Procedure Time: 1530. Time changes happen often and if your time is changed the preop area will call you the afternoon before. - You and your visitor will be asked to self-screen and do not enter if you have any COVID symptoms. - Only one visitor is requested with a max of two and NO children visitors are allowed at this time. - The patient visitor may be requested to leave or wait in car when not with patient due to distancing restrictions. - A mask is optional within the hospital at this time. Patients may have clear liquids (water, carbonated beverages, clear teas, apple juice) until 3 hours prior to surgery with a maximum of 20 ounces. - No food from midnight until time of surgery Take the following medications with a SIP of water the morning of surgery: INHALERS, DULOXETINE, GABAPENTIN, LEVOTHYROXINE, ANTIBIOTIC DO NOT STOP ANY OF YOUR OTHER PRESCRIPTION MEDICATIONS PRIOR TO SURGERY EXCEPT THE FOLLOWING Medications to discontinue per physician: VITAMINS/SUPPLEMENTS Date to take last dose: NO MORE UNTIL AFTER SURGERY Please no make-up, nail belarusian, hairspray, perfume, deodorant, or body powder the day of surgery. No jewelry (including any body piercings) or valuables the day of surgery, leave them at home. Please take a shower or bath the night before, or the morning of, surgery with an antibacterial soap. Wear comfortable, loose fitting clothing. - Jewelry must be removed prior to entering the operating room. Rings and piercings that are not removed may be cut off. - The hospital will not accept responsibility for valuables. - Please leave all valuables, including medications, at home the day of surgery. If you are going home after surgery, a licensed solid waste truck driver must drive you home. - NO public transportation without another adult if you receive anesthesia. - We recommend that an adult stay with you for 24 hours following discharge. - We also recommend that you do not drive, make important decision, drink alcoholic beverages, or take any drugs that were not prescribed by your health care provider for at least 24 hours after your discharge time. Follow any additional instructions given to you from your surgeon. If you or anyone in your household have experienced Covid symptoms in the past week, please notify your surgeon or the nurse liaison at the phone number below for possible testing. Telephone instructions given to MOM AND SISTER and asked if any additional questions and then verbalized understanding. Patient advised to call surgeon office or pre surgery nurse liaison [phone] if any additional questions.
[2022-11-19 13:44] LABS: Glucose Point of Care 90 mg/dl (65-105)
--- NOTE | 2022-11-19 13:46 | WPDANESEPPF ---
Anes - Initial Pre Proc Eval Procedure: Operation Date: 11/19/22 15:00 Proposed Procedures p Excision of Right Axillary Hidradenitis - Israel Crooks DO Date/Time: 11/19/22 13:46 Surgeon: Israel Crooks DO Pre Op Diagnosis: Right Axillary Hidranitis Patient Data Age: 27 Gender: F Height: 1.68 m Weight: 86.2 kg Allergies Allergy/AdvReac Type Severity Reaction Status Date / Time adhesive Allergy Intermediate Rash Verified 11/16/22 14:05 amoxicillin Allergy Intermediate Rash Verified 11/16/22 14:05 dexmethylphenidate Allergy Intermediate aggressiven Verified 11/16/22 14:05 ess Penicillins Allergy Intermediate Rash Verified 11/16/22 14:05 cephalexin Allergy Unknown Unknown Verified 11/16/22 14:05 Home Medications Medication Instructions Recorded Confirmed Type albuterol sulfate 90 mcg/actuation 1 puff inhalation Q4-6H PRN 10/21/22 11/16/22 History aerosol inhaler Shortness Of Breath Or Wheezing dulaglutide 1.5 mg/0.5 mL 1.5 mg subcut WEEKLY 10/21/22 11/16/22 History subcutaneous pen injector (Trulicity) levothyroxine 25 mcg capsule 25 mcg PO DAILY 10/21/22 11/16/22 History norgestimate 0.18 mg/0.215 mg/0.25 1 tablet PO DAILY 10/21/22 11/16/22 History mg-ethinyl estradiol 25 mcg tablet (Uvh-Bh-Krsekyke) propranolol 60 mg capsule,24 60 mg PO QPM 10/21/22 11/16/22 History hr,extended release diclofenac sodium 75 mg 75 mg PO DAILY 10/27/22 11/16/22 History tablet,delayed release duloxetine 20 mg capsule,delayed 20 mg PO DAILY 10/27/22 11/16/22 History release famotidine 20 mg tablet 40 mg PO DAILY 10/27/22 11/16/22 History ferrous gluconate 324 mg (38 mg 324 mg PO DAILY 10/27/22 11/16/22 History iron) tablet gabapentin 300 mg capsule 300 mg PO TID 10/27/22 11/16/22 History potassium 99 mg tablet 99 mg PO DAILY 10/27/22 11/16/22 History mesalamine 1.2 gram tablet,delayed 3.6 g PO DAILY 1 month #90 tabs 11/05/22 11/16/22 Rx release pioglitazone 15 mg tablet 15 mg PO DAILY 11/16/22 11/16/22 History sulfamethoxazole 800 1 tablet PO Q12H 7 days #14 tabs 11/16/22 11/16/22 Rx mg-trimethoprim 160 mg tablet (Bactrim DS) Laboratory Tests 11/19/22 13:41 POC Capillary Glucose 90 mg/dl mg/dl (65-105) Patient hx anesthesia problems: none Family hx anesthesia problems: none Results Review: All pre-operative results and documents have been reviewed as part of the pre-operative evaluation. [facility] Past Medical History Medical History Anxiety Depression GERD (gastroesophageal reflux disease) Hypokalemia Hypothyroidism Iron deficiency anemia Left upper limb pain Morbid obesity Non-specific colitis Scoliosis Type 2 diabetes mellitus Weight loss Surgical History Surgical History History of axillary surgery History of tonsillectomy Family History Family History Father Hypertension Family history of elevated blood lipids Family history of coronary artery disease Family history of type 2 diabetes mellitus Mother Hypertension Family history of elevated blood lipids Family history of type 2 diabetes mellitus Social History Social History Smoking status: Never smoker Alcohol intake: current Alcohol use details: RARE Substance use: never Substance use type: does not use Living arrangements: with family Gender identity (if verbalized by the patient): Female Spiritual care concerns: No Anes - Eval Final PreProcedure Day of Procedure 11/19/22 13:46 Patient weight: obese Heart: regular rate and rhythm Lungs: clear to auscultation Airway: Mallampati scale class II (poor dentition; caries and missing teeth) Neurological: alert and oriented Last oral intake: >/= 8 hours ASA classification: III Emergent:
[2022-11-19 14:04] VITALS: BP 108/68; PULSE 80; RESP 14; TEMP 36.3; O2SAT 100
[2022-11-19] MEDS: LACTATED RINGERS 1,000 ML 30 ML IV CONT ×2 (14:10→16:28)
[2022-11-19] MEDS: SCOPOLAMINE 1.5 MG PATCH TRANSDERM (14:10)
--- NOTE | 2022-11-19 14:38 | WPDHPUPDATE1 ---
History and Physical Update Update Date/Time: 11/19/22 14:38 History and Physical has been reviewed, including an updated exam of the patient. There are NO changes in the patient's condition. Risks, benefits, and alternatives have been discussed and questions answered. Patient agrees to proceed with procedure.
[2022-11-19] MEDS: CLINDAMYCIN 900 MG/D5W 50 ML 900 MG/50 ML PIGGYBACK 50 MG IVPB (14:47)
[2022-11-19] MEDS: LIDO 1%/EPINEPHRINE 1:100,000 20 ML VIAL INFILTRATE (15:22)
--- NOTE | 2022-11-19 15:34 | P.OP_ITS ---
Procedure Note - Detailed Date of Procedure 11/19/22 Pre-op Diagnosis Right Axillary Hidranitis Post-op Diagnosis Same Procedure Performed excision of right axillary hidradenitis Surgeon Israel Crooks, DO Anesthesia MAC and Local ( 1% lidocaine with epinephrine) Indications this is a 27-year-old woman who presented with chronic wounds in her right axillary region. She has had multiple infections in this area and the wounds periodically drain. She was found to have evidence of right axillary hidradeni tis. Discussions were made with the patient about treatment options and decision was made to proceed with excision of the right axillary hidradenitis. Findings Excision of the involved axillary hidradenitis was performed. Patient had 2 separate areas that were excised separately. The larger area was involving the inner anterior axillary region. A 6 cm elliptical incision was made around this incision and more of a transverse/oblique fashion to adequately encompass the involved area. She then also had a smaller area on the lateral axillary region near her upper arm. A 2 cm elliptical incision was made over this region to completely excised the involved skin. The excised skin was sent to the lab for pathology. Description of Procedure Procedure as well as risks, benefits, and alternatives were discussed with the patient. Written consent was obtained and placed in chart to procedure. Patient was brought back to surgical suite. She was placed supine on operating table. Time-out was done to confirm patient and procedure. IV sedation was then administered by the anesthesia department. Her right axillary region was prepped and draped in sterile fashion using Betadine prep. 1% lidocaine with epinephrine was infiltrated locally around the involved skin. Electrical probe was used to probe the areas of wound opening to ensure that there was not any deep tunneling. A 6 cm transverse elliptical incision was then made using a 15 blade scalpel. Electrocautery was used for hemostasis and for dissection of the involved skin off of the subcutaneous attachments. Wound bed was then inspected and hemostasis appeared adequate. No other abnormalities were noted. Then a separate 2 cm elliptical incision was made around the 2nd area of hidradenitis. The skin was excised using electrocautery. The wound bed was then inspected . Hemostasis appeared adequate. The wounds were then irrigated with sterile saline. The skin edges were then reapproximated using 4-0 nylon vertical mattress interrupted sutures. 4 x 4 gauze and Medipore tape were then applied. The patient was then awakened from anesthesia and transferred to recovery. Estimated Blood Loss 5 Pathology Yes ( Right axillary hidradenitis) Complications No immediate complications Condition Stable Disposition Same day [facility] Billing Surgery - Charge Forward: Surgery Billing
[2022-11-19 15:35] VITALS: BP 105/71; PULSE 65; RESP 16; O2SAT 100
[2022-11-19] MEDS: ONDANSETRON INJ 4 MG/2 ML VIAL IV PUSH (15:48)
[2022-11-19 16:05] VITALS: BP 98/62; PULSE 63; RESP 16; O2SAT 99
[2022-11-19] MEDS: diphenhydrAMINE HCl INJ 50 MG/ML VIAL 25 MG IV PUSH (16:14)
[2022-11-19 16:35] VITALS: BP 110/69; PULSE 75; RESP 16; O2SAT 100
[2022-11-20 14:39] LABS: Glucose Point of Care 96 mg/dl (65-105)
== END 2022-11-19 17:01 | disposition home or self-care (01) ==
PROVIDERS: PCP Internal Medicine; Visit Provider Surgery
PROC: (CPT 11450; principal; 2022-11-19 15:00)
DX: L73.2 Hidradenitis suppurativa (principal); E11.9 Type 2 diabetes mellitus without complications; D50.9 Iron deficiency anemia, unspecified; E03.9 Hypothyroidism, unspecified; K21.9 Gastro-esophageal reflux disease without esophagitis; F41.9 Anxiety disorder, unspecified; F32.A Depression, unspecified; K52.9 Noninfective gastroenteritis and colitis, unspecified; Z79.51 Long term (current) use of inhaled steroids; Z79.899 Other long term (current) drug therapy; E66.9 Obesity, unspecified; Z68.30 Body mass index [BMI] 30.0-30.9, adult
CPT/HCPCS: 11450; 82948; 88304; A9270; J1100; J1200; J2250; J2405; J2704; J3010; J7120

== ENCOUNTER 2022-11-22 15:42 | Outpatient (CLI) | payer MEDICARE, MEDICAID, SELFPAY ==
[2022-11-22 15:56] LABS: Basophils Absolute Auto 0.1 K/mm3 (0.0-0.1); Basophils Percent Auto 0.5 % (0.2-1.2); Eosinophils Absolute Auto 0.4 K/mm3 (0-0.3); Hemoglobin 11.5 g/dL (12.0-15.0); Immature Granulocyte Absolute 0.07 K/mm3 (0.00-0.031); Immature Granulocyte Percent A 0.7 % (0-0.5); Lymphocytes Absolute Auto 1.77 K/mm3 (0.9-3.2); Lymphocytes Percent Auto 18.7 % (18.3-44.2); Mean Corpuscular HGB Conc 31.1 g/dl (32-36); Mean Corpuscular Hemoglobin 25.8 pg (26-34); Mean Corpuscular Volume 83.1 fl (80-100); Mean Platelet Volume 8.9 fl (7.4-10.4); Monocytes Absolute Auto 0.9 K/mm3 (0.1-0.6); Monocytes Percent Auto 9.8 % (2.6-8.5); Neutrophils Absolute Auto 6.3 K/mm3 (1.3-6.7); Neutrophils Percent Auto 66.3 % (45.5-73.1); Platelet Count Result 413 k/mm3 (150-375); Red Blood Count 4.45 M/mm3 (4.2-5.4); Red Cell Distribution Width 15.9 % (11.5-14.5); White Blood Count 9.5 K/mm3 (4.5-10.0)
[2022-11-22 16:59] LABS: Iron 39 ug/dL (37-170)
[2022-11-22 17:04] LABS: Alanine Aminotransferase 12 U/L (6-35); Albumin Level 4.3 g/dL (3.5-5.1); Alkaline Phosphatase 107 U/L (38-126); Anion Gap 8 mmol/L (8-16); Aspartate Amino Transferase 27 U/L (14-36); Bilirubin,Total 0.4 mg/dL (0.2-1.3); Blood Urea Nitrogen 11 mg/dL (7-17); Calcium 8.3 mg/dL (8.4-10.2); Carbon Dioxide 31 mmol/L (22-30); Chloride 99 mmol/L (98-107); Estimated Glomerular Filt Rate 60; Glucose 99 mg/dL (65-110); Potassium 3.7 mmol/L (3.4-5.0); Sodium 138 mmol/L (137-145)
[2022-11-22 17:09] LABS: Percent Iron Saturation 9 % (20-50)
[2022-11-22 18:10] LABS: Folic Acid 2.9 ng/mL (2.76->20)
== END 2022-11-22 15:43 | disposition home or self-care (01) ==
LOC: ANHLAB 15:44
PROVIDERS: PCP Internal Medicine; Visit Provider Internal Medicine Hematology & Oncology
DX: D64.9 Anemia, unspecified (principal)
CPT/HCPCS: 36415; 80053; 82607; 82728; 82746; 83540; 83550; 85025

== ENCOUNTER 2023-01-03 10:55 | Emergency (ER) | payer MEDICARE, MEDICAID, SELFPAY ==
[2023-01-03] VITALS (28 sets, daily range): BP systolic 101–113; BP diastolic 62–85; PULSE 75–96; RESP 12–22; TEMP 36.2–36.9; O2SAT 93–98
--- NOTE | ~2023-01-03 | XR_ITS ---
EXAMINATION: XR chest 1V portable DATE: 01/03/2023 11:33 INDICATION: Chest pain. TECHNIQUE: A single frontal view of the chest was obtained. COMPARISON: Chest single view 11/16/2022, CT abdomen and pelvis 04/09/2022 FINDINGS: The chest demonstrates clear lungs without pneumonia, pleural effusion, or pneumothorax. Th e heart size is normal. IMPRESSION: 1. No acute cardiopulmonary disease. Reviewed, dictated and finalized at location A.
--- NOTE | 2023-01-03 11:19 | ECG_ITS ---
Measurements Intervals [place] Rate: 84 P: 33 DC: 112 QRS: 106 QRSD: 89 T: -11 QT: 333 QTc: 395 Interpretive Statements SINUS RHYTHM WITH SHORT DC INTERVAL RIGHT AXIS DEVIATION [QRS AXIS > 100] NONSPECIFIC T-WAVE ABNORMALITY ABNORMAL ECG COMPARED TO ECG 11/16/2022 06:37:32 T-WAVE ABNORMALITY NOW PRESENT Electronically Signed On 01-03-2023 12:31:26 CDT by Kj Ruelas M.D.
[2023-01-03 11:22] LABS: Basophils Absolute Auto 0.02 K/mm3 (0.00-0.10); Basophils Percent Auto 0.4 % (0.0-1.0); Eosinophils Percent Auto 7.6 % (1.0-6.0); Hematocrit 35.2 % (35.0-49.0); Hemoglobin 11.4 g/dL (12.0-15.0); Immature Granulocyte Absolute 0.01 K/mm3 (0.00-0.00); Immature Granulocyte Percent A 0.2 % (0.0-0.0); Lymphocytes Absolute Auto 1.84 K/mm3 (1.10-4.50); Lymphocytes Percent Auto 34.8 % (18.0-42.0); Mean Corpuscular HGB Conc 32.4 g/dL (32.0-36.0); Mean Corpuscular Hemoglobin 26.8 pg (27.0-31.0); Mean Corpuscular Volume 82.8 fL (78.0-102.0); Mean Platelet Volume 9.5 fl (9.2-11.8); Monocytes Absolute Auto 0.41 K/mm3 (0.10-0.90); Monocytes Percent Auto 7.8 % (2.0-11.0); Neutrophils Absolute Auto 2.6 K/mm3 (1.7-7.2); Neutrophils Percent Auto 49.2 % (50.0-70.0); Platelet Count Result 302 K/mm3 (150-420); Red Blood Count 4.25 M/mm3 (4.20-5.40); Red Cell Distribution Width 15.2 % (11.6-14.4); White Blood Count 5.3 K/mm3 (4.8-10.8)
[2023-01-03 11:26] LABS: Glucose Point of Care 136 mg/dl (65-105)
--- NOTE | 2023-01-03 11:29 | ED.GENADULT ---
HPI - General Adult General Chief complaint: Chest Pain Stated complaint: chest pain/asthma Time Seen by Provider: 01/03/23 11:07 History of Present Illness HPI narrative: [place] is a 27F with a PMH of hidradenitis suppurativa, DMII, suppurative colitis, hypothyroidism and anxiety/depression that presented to the ED via EMS for chest pain that radiates to the left arm and dyspnea. It started earlier in the day and became worse. She was given 324 of aspirin and nitroglycerin by EMS en route. She admits lightheadedness but no nausea or vomiting. Related Data Home Medications Medication Instructions Recorded Confirmed albuterol sulfate 90 mcg/actuation 1 puff inhalation Q4-6H PRN 10/21/22 01/03/23 aerosol inhaler Shortness Of Breath Or Wheezing dulaglutide 1.5 mg/0.5 mL 1.5 mg subcut WEEKLY 10/21/22 01/03/23 subcutaneous pen injector (Trulicity) levothyroxine 25 mcg capsule 25 mcg PO DAILY 10/21/22 01/03/23 propranolol 60 mg capsule,24 60 mg PO QPM 10/21/22 01/03/23 hr,extended release diclofenac sodium 75 mg 75 mg PO DAILY 10/27/22 01/03/23 tablet,delayed release duloxetine 20 mg capsule,delayed 20 mg PO DAILY 10/27/22 01/03/23 release famotidine 20 mg tablet 40 mg PO DAILY 10/27/22 01/03/23 ferrous gluconate 324 mg (38 mg 324 mg PO DAILY 10/27/22 01/03/23 iron) tablet gabapentin 300 mg capsule 300 mg PO TID 10/27/22 01/03/23 norgestimate 0.18 mg/0.215 mg/0.25 1 tablet PO DAILY 01/03/23 01/03/23 mg-ethinyl estradiol 25 mcg tablet (Tri-Lo-Sasha) Allergies Allergy/AdvReac Type Severity Reaction Status Date / Time adhesive Allergy Intermediate Rash Verified 01/03/23 11:09 amoxicillin Allergy Intermediate Rash Verified 01/03/23 11:09 dexmethylphenidate Allergy Intermediate aggressiven Verified 01/03/23 11:09 ess Penicillins Allergy Intermediate Rash Verified 01/03/23 11:09 cephalexin Allergy Unknown Unknown Verified 01/03/23 11:09 Review of Systems Review of Systems: All systems reviewed & are unremarkable except as noted in HPI and below PMFSH Past Medical History Medical History Anxiety Chronic diarrhea Depression GERD (gastroesophageal reflux disease) Hypokalemia Hypothyroidism Iron deficiency anemia Left upper limb pain Morbid obesity Non-specific colitis Scoliosis Type 2 diabetes mellitus Ulcerative colitis Weight loss Surgical History Surgical History History of axillary surgery History of excision of lesion exc rt axillary hidradenitis 11/19/22 History of tonsillectomy Family History Family History Father Hypertension Family history of elevated blood lipids Family history of coronary artery disease Family history of type 2 diabetes mellitus Mother Hypertension Family history of elevated blood lipids Family history of type 2 diabetes mellitus Social History Social History Smoking status: Never smoker Alcohol intake: current Alcohol use details: RARE Substance use: never Substance use type: does not use Living arrangements: with family Gender identity (if verbalized by the patient): Female Spiritual care concerns: No Exam Const: General: no acute distress and alert Nutritional Appearance: well nourished Orientation/consciousness: patient oriented x3 Limitations: no limitations HENMT: Head: normal to inspection Ears: external ears normal Face/Nose/Sinus: Normal external nose present Eyes: Conjunctivae: conjunctivae normal Pupils: Equal, round and reactive pupils present EOM: EOMs intact bilaterally Neck: Neck: normal visual inspection Chest: Chest palpation & inspection: normal inspection of the chest Resp: Effort & Inspection: normal respiratory effort Auscultation: clear to auscultation bilaterally Cardio: Rat
[2023-01-03 11:46] LABS: Alanine Aminotransferase 12 U/L (14-59); Albumin Level 2.7 g/dL (3.4-5.0); Alkaline Phosphatase 104 U/L (46-116); Anion Gap 6 mmol/L (8-16); Aspartate Amino Transferase 12 U/L (15-37); Bilirubin,Total 0.1 mg/dL (0.00-1.00); Blood Urea Nitrogen 11 mg/dL (7-18); Calcium 8.1 mg/dL (8.5-10.1); Carbon Dioxide 31 mmol/L (21-32); Chloride 103 mmol/L (98-108); Estimated CRCL calculation 83 ml/min; Estimated Glomerular Filt Rate > 60; Glucose 133 mg/dL (70-99); NT Pro B Type Natriuretic Pept 36 pg/mL (0-125); Osmolality Calculated 291 mOsm/kg (285-295); Potassium 3.8 mmol/L (3.5-5.1); Salicylate 2.2 mg/dL (2.8-20.0); Sodium 140 mmol/L (136-145)
[2023-01-03 11:47] LABS: Troponin I < 4.0 ng/L (0.00-60.4)
[2023-01-03] MEDS: MAG HYDROX/ALUMINUM HYD/SIMETH 30 ML, PHENobarb/HYOSCY/ATROPINE/SCOP 32.4 MG, LIDOCAINE... PO (12:36)
[2023-01-03] MEDS: HYDROcodone/acetaminophen (*CRX) 5-325 MG TABLET 1 TAB PO (13:06)
[2023-01-03 14:40] LABS: Troponin I < 4.0 ng/L (0.00-60.4)
== END 2023-01-03 15:06 | disposition home or self-care (01) ==
PROVIDERS: Emergency Provider Family Medicine; PCP Internal Medicine
DX: R07.9 Chest pain, unspecified (principal); E11.9 Type 2 diabetes mellitus without complications; E03.9 Hypothyroidism, unspecified; F41.9 Anxiety disorder, unspecified; F32.A Depression, unspecified; Z79.899 Other long term (current) drug therapy
CPT/HCPCS: 36415; 71045; 80053; 80307; 82948; 83880; 84484; 85025; 86480; 86703; 93005; 99284; A9270

== ENCOUNTER 2023-01-03 15:10 | Outpatient (CLI) | payer MEDICARE, MEDICAID, SELFPAY ==
[2023-01-03 15:50] LABS: HIV 1 P24 AG Negative (Negative); HIV 1/2 AB Negative (Negative)
[2023-01-05 15:13] LABS: NIL 0.01 IU/mL; Quantiferon TB Plus, 1T NEGATIVE (NEGATIVE); TB1-NIL <0.00 IU/mL; TB2-NIL 0.01 IU/mL
== END 2023-01-03 15:11 | disposition home or self-care (01) ==
LOC: CHSLAB 15:12
PROVIDERS: PCP Internal Medicine; Visit Provider Internal Medicine Gastroenterology
DX: D50.9 Iron deficiency anemia, unspecified (principal); R63.4 Abnormal weight loss; B19.20 Unspecified viral hepatitis C without hepatic coma; K52.9 Noninfective gastroenteritis and colitis, unspecified
CPT/HCPCS: 36415; 86480; 86703

== ENCOUNTER 2023-03-03 18:00 | Outpatient (CLI) | payer MEDICARE, MEDICAID, SELFPAY ==
--- NOTE | ~2023-03-03 | XR_ITS ---
EXAMINATION: XR thoracic spine 3V, XR lumbar spine 2-3V DATE: 03/03/2023 18:55 INDICATION: Scoliosis presenting with back pain TECHNIQUE: 1. One AP, lateral and lateral swimmer's views of the thoracic spine were obtained. 2. AP, lateral and coned-down lateral lumbosacral views of the lumbar spine were obtained. COMPARISON: None. FINDINGS: Decrease in the severity of the prior S-shaped thoracolumbar scoliosis with now 23 degree thoracic de xtro scoliosis measured between T6 and T11 and 19 degrees levoscoliosis between T11 and L3. Vertebral body heights are normal throughout. Mild left sided disc height loss at T7-T8 and T8-T9 and mild rig ht-sided disc height loss at T11-T12 through L1-L2. Sacrum and bilateral sacroiliac joints are unrema rkable. Visualized portions of the lungs are clear with no pleural effusion or pneumothorax. Cardiome diastinal silhouette is normal. IMPRESSION: 1. Interval improvement in an S-shaped scoliosis of the spine with now 23 thoracic dextro scoliosis a nd 19 degrees lumbar levoscoliosis. Reviewed, dictated and finalized at location A. IMPRESSION: 1. Interval improvement in an S-shaped scoliosis of the spine with now 23 thora cic dextro scoliosis and 19 degrees lumbar levoscoliosis.
[2023-03-03 18:33] LABS: Basophils Absolute Auto 0.02 K/mm3 (0.00-0.10); Basophils Percent Auto 0.3 % (0.0-1.0); Eosinophils Absolute Auto 0.38 K/mm3 (0.02-0.50); Eosinophils Percent Auto 5.1 % (1.0-6.0); Hematocrit 38.4 % (35.0-49.0); Hemoglobin 12.3 g/dL (12.0-15.0); Immature Granulocyte Absolute 0.03 K/mm3 (0.00-0.00); Immature Granulocyte Percent A 0.4 % (0.0-0.0); Lymphocytes Absolute Auto 1.36 K/mm3 (1.10-4.50); Lymphocytes Percent Auto 18.4 % (18.0-42.0); Mean Corpuscular Hemoglobin 27.2 pg (27.0-31.0); Mean Corpuscular Volume 84.8 fL (78.0-102.0); Mean Platelet Volume 9.8 fl (9.2-11.8); Monocytes Absolute Auto 0.68 K/mm3 (0.10-0.90); Monocytes Percent Auto 9.2 % (2.0-11.0); Neutrophils Absolute Auto 4.9 K/mm3 (1.7-7.2); Neutrophils Percent Auto 66.6 % (50.0-70.0); Platelet Count Result 310 K/mm3 (150-420); Red Blood Count 4.53 M/mm3 (4.20-5.40); Red Cell Distribution Width 14.2 % (11.6-14.4); White Blood Count 7.4 K/mm3 (4.8-10.8)
[2023-03-03 19:30] LABS: Alanine Aminotransferase 13 U/L (14-59); Albumin Level 3.1 g/dL (3.4-5.0); Alkaline Phosphatase 117 U/L (46-116); Anion Gap 9 mmol/L (8-16); Aspartate Amino Transferase 11 U/L (15-37); Bilirubin,Total 0.2 mg/dL (0.00-1.00); Blood Urea Nitrogen 15 mg/dL (7-18); Calcium 8.5 mg/dL (8.5-10.1); Carbon Dioxide 28 mmol/L (21-32); Chloride 102 mmol/L (98-108); Estimated Glomerular Filt Rate 54; Ferritin 43 ng/mL (8-252); Folic Acid 7.4 ng/mL (8.6->20); Glucose 219 mg/dL (70-99); Iron 65 ug/dL (50-170); Osmolality Calculated 295 mOsm/kg (285-295); Percent Iron Saturation 16 % (12-57); Sodium 139 mmol/L (136-145); Total Protein 8.1 g/dL (6.4-8.2); Vitamin B12 199 pg/mL (193-986)
== END 2023-03-03 18:01 | disposition home or self-care (01) ==
PROVIDERS: PCP Internal Medicine; Visit Provider Internal Medicine Hematology & Oncology
DX: M54.50 Low back pain, unspecified (principal); M41.9 Scoliosis, unspecified; D64.9 Anemia, unspecified
CPT/HCPCS: 36415; 72072; 72100; 80053; 82607; 82728; 82746; 83540; 83550; 85025

== ENCOUNTER 2023-08-08 11:07 | Emergency (ER) | payer MEDICARE, MEDICAID, SELFPAY ==
[2023-08-08 11:07] VITALS: BP 124/73; PULSE 92; RESP 18; TEMP 37; O2SAT 100
--- NOTE | 2023-08-08 11:14 | ED.GENADULT ---
HPI - General Adult General Chief complaint: Allergic Reaction Stated complaint: Allergic reaction Time Seen by Provider: 08/08/23 11:12 History of Present Illness HPI narrative: 28yo woman on Bactrim for hidradenitis presents with left chest pain which she attributes to the Bactrim, though she has been on it for 5 days without rash or other incident. No leg pain or swelling. No cough or congestion or fever. Related Data Home Medications Medication Instructions Recorded Confirmed albuterol sulfate 90 mcg/actuation 1 puff inhalation Q4-6H PRN 10/21/22 08/02/23 aerosol inhaler Shortness Of Breath Or Wheezing dulaglutide 1.5 mg/0.5 mL 1.5 mg subcut WEEKLY 10/21/22 08/02/23 subcutaneous pen injector (Trulicity) levothyroxine 25 mcg capsule 25 mcg PO DAILY 10/21/22 08/02/23 propranolol 60 mg capsule,24 60 mg PO QPM 10/21/22 08/02/23 hr,extended release diclofenac sodium 75 mg 75 mg PO DAILY 10/27/22 08/02/23 tablet,delayed release duloxetine 20 mg capsule,delayed 20 mg PO DAILY 10/27/22 08/02/23 release famotidine 20 mg tablet 40 mg PO DAILY 10/27/22 08/02/23 ferrous gluconate 324 mg (38 mg 324 mg PO DAILY 10/27/22 08/02/23 iron) tablet gabapentin 300 mg capsule 300 mg PO TID 10/27/22 08/02/23 norgestimate 0.18 mg/0.215 mg/0.25 1 tablet PO DAILY 01/03/23 08/02/23 mg-ethinyl estradiol 25 mcg tablet (Tri-Lo-Sasha) Allergies Allergy/AdvReac Type Severity Reaction Status Date / Time adhesive Allergy Intermediate Rash Verified 08/08/23 11:44 amoxicillin Allergy Intermediate Rash Verified 08/08/23 11:44 dexmethylphenidate Allergy Intermediate aggressiven Verified 08/08/23 11:44 ess Penicillins Allergy Intermediate Rash Verified 08/08/23 11:44 cephalexin Allergy Unknown Unknown Verified 08/08/23 11:44 Review of Systems Review of Systems: All systems reviewed & are unremarkable except as noted in HPI and below Constitutional: Constitutional: Denies fever(s) ENT: Denies dysphagia Cardiovascular: Cardiovascular: Reports chest pain Respiratory: Respiratory: Denies dyspnea PMFSH Past Medical History Medical History Anxiety Chronic diarrhea Depression GERD (gastroesophageal reflux disease) Hypokalemia Hypothyroidism Iron deficiency anemia Left upper limb pain Morbid obesity Non-specific colitis Scoliosis Type 2 diabetes mellitus Ulcerative colitis Weight loss Surgical History Surgical History History of axillary surgery History of excision of lesion exc rt axillary hidradenitis 11/19/22 History of tonsillectomy Family History Family History Father Hypertension Family history of elevated blood lipids Family history of coronary artery disease Family history of type 2 diabetes mellitus Mother Hypertension Family history of elevated blood lipids Family history of type 2 diabetes mellitus Social History Social History Smoking status: Never smoker Alcohol intake: current Alcohol use details: RARE Substance use: never Substance use type: does not use Living arrangements: with family Gender identity (if verbalized by the patient): Female Spiritual care concerns: No Exam Const: General: healthy appearing and no acute distress Nutritional Appearance: well nourished Eyes: Conjunctivae: conjunctivae normal Resp: Effort & Inspection: normal respiratory effort Auscultation: clear to auscultation bilaterally Cardio: Rate: regular rate Rhythm: regular rhythm Heart sounds: no murmurs GI: Inspection: non-distended GI Palp: Yes Soft to palpation and No Tenderness to palpation present (GI) Skin: General skin exam: normal color, no jaundice and no pallor Neuro: General: patient oriented x3 and moves all extremities Gait exam (
[2023-08-08 11:22] VITALS: BP 124/73; PULSE 92; RESP 18; TEMP 37; O2SAT 100
[2023-08-08 11:23] LABS: Glucose Point of Care 193 mg/dl (65-105)
[2023-08-08] MEDS: IBUPROFEN 600 MG TABLET PO (11:34)
[2023-08-08] MEDS: methocarbamoL 500 MG TABLET 1000 MG PO (11:34)
[2023-08-08 12:00] VITALS: BP 119/70; PULSE 85; RESP 17; TEMP 36.9; O2SAT 100
== END 2023-08-08 12:00 | disposition home or self-care (01) ==
LOC: CHSED 11:38
PROVIDERS: Emergency Provider Emergency Medicine; PCP Internal Medicine
DX: R07.89 Other chest pain (principal); E03.9 Hypothyroidism, unspecified; E11.9 Type 2 diabetes mellitus without complications
CPT/HCPCS: 82948; 99283; A9270

== ENCOUNTER 2023-09-06 14:47 | Outpatient (CLI) | payer MEDICARE, SELFPAY ==
[2023-09-06 15:11] LABS: Bilirubin Urine 2+ (Negative); Blood Urine Negative (Negative); Glucose Urine UA 1+ (Negative); Ketones Urine Trace (Negative); Leukocyte Esterase Ur Negative (Negative); Nitrate Urine Negative (Negative); Protein Urine 2+ (Negative); Specific Grav Ur >= 1.030 (1.010-1.020); pH Urine 5.5 (5.0-8.0)
[2023-09-06 15:17] LABS: Add Urine Microscopic? YES; Appearance Urine Cloudy (Clear); Bacteria Urine 1+ /hpf; Color Urine Dark Yellow (Yellow); RBC Urine None seen /hpf (0-2); Renal Epithelial Cells Urine Few /hpf; Squamous Epithelial Cell Urine Moderate /hpf (Few); WBC Urine None seen /hpf (0-3)
[2023-09-06 15:33] LABS: Alanine Aminotransferase 25 U/L (14-59); Albumin Level 3.5 g/dL (3.4-5.0); Alkaline Phosphatase 110 U/L (46-116); Anion Gap 5 mmol/L (8-16); Aspartate Amino Transferase 17 U/L (15-37); Bilirubin,Total 0.4 mg/dL (0.00-1.00); Blood Urea Nitrogen 13 mg/dL (7-18); Calcium 9.4 mg/dL (8.5-10.1); Carbon Dioxide 34 mmol/L (21-32); Chloride 97 mmol/L (98-108); Estimated Glomerular Filt Rate 52; Glucose 175 mg/dL (70-99); Osmolality Calculated 286 mOsm/kg (285-295); Potassium 3.5 mmol/L (3.5-5.1); Sodium 136 mmol/L (136-145); Total Protein 8.6 g/dL (6.4-8.2)
== END 2023-09-06 14:48 | disposition home or self-care (01) ==
LOC: CHSLAB 14:49
PROVIDERS: PCP Internal Medicine; Visit Provider Internal Medicine
DX: R79.89 Other specified abnormal findings of blood chemistry (principal)
CPT/HCPCS: 36415; 80053; 81001

== ENCOUNTER 2023-11-25 13:13 | Outpatient (CLI) | payer MEDICARE, MEDICAID, SELFPAY ==
[2023-11-25 13:51] LABS: Basophils Absolute Auto 0.05 K/mm3 (0.00-0.10); Basophils Percent Auto 0.5 % (0.0-1.0); Eosinophils Percent Auto 2.1 % (1.0-6.0); Hematocrit 43.9 % (35.0-49.0); Hemoglobin 14.3 g/dL (12.0-15.0); Immature Granulocyte Absolute 0.03 K/mm3 (0.00-0.00); Immature Granulocyte Percent A 0.3 % (0.0-0.0); Lymphocytes Percent Auto 31.5 % (18.0-42.0); Mean Corpuscular HGB Conc 32.6 g/dL (32.0-36.0); Mean Corpuscular Hemoglobin 27.2 pg (27.0-31.0); Mean Corpuscular Volume 83.5 fL (78.0-102.0); Mean Platelet Volume 10.1 fl (9.2-11.8); Monocytes Absolute Auto 0.73 K/mm3 (0.10-0.90); Monocytes Percent Auto 7.7 % (2.0-11.0); Neutrophils Absolute Auto 5.5 K/mm3 (1.7-7.2); Neutrophils Percent Auto 57.9 % (50.0-70.0); Platelet Count Result 329 K/mm3 (150-420); Red Blood Count 5.26 M/mm3 (4.20-5.40); Red Cell Distribution Width 14.1 % (11.6-14.4); White Blood Count 9.5 K/mm3 (4.8-10.8)
[2023-11-25 14:30] LABS: Hemoglobin A1C 9.8 % (<5.7)
[2023-11-25 15:19] LABS: Alanine Aminotransferase 27 U/L (14-59); Albumin Level 3.4 g/dL (3.4-5.0); Alkaline Phosphatase 148 U/L (46-116); Anion Gap 8 mmol/L (8-16); Aspartate Amino Transferase 10 U/L (15-37); Bilirubin,Total 0.4 mg/dL (0.00-1.00); Blood Urea Nitrogen 10 mg/dL (7-18); Carbon Dioxide 31 mmol/L (21-32); Chloride 96 mmol/L (98-108); Estimated Glomerular Filt Rate > 60; Glucose 189 mg/dL (70-99); Osmolality Calculated 284 mOsm/kg (285-295); Potassium 3.7 mmol/L (3.5-5.1); Sodium 135 mmol/L (136-145); Total Protein 8.4 g/dL (6.4-8.2)
[2023-11-28 11:11] LABS: Albumin 3.8 g/dL (3.8-4.8); Alpha 1 Globulin 0.4 g/dL (0.2-0.3); Alpha 2 Globulin 1.3 g/dL (0.5-0.9); Beta 1 Globulin 0.6 g/dL (0.4-0.6); Gamma Globulin 1.6 g/dL (0.8-1.7); Protein, Total 8.3 g/dL (6.1-8.1)
[2023-11-29 12:31] LABS: Creatinine, Random Urine 123 mg/dL (20-275); Total Protein/Creatinine Ratio 285 mg/g creat (24-184)
== END 2023-11-25 13:14 | disposition home or self-care (01) ==
LOC: CHSLAB 13:16
PROVIDERS: PCP Internal Medicine; Visit Provider Internal Medicine
DX: N28.9 Disorder of kidney and ureter, unspecified (principal); R80.9 Proteinuria, unspecified; E11.65 Type 2 diabetes mellitus with hyperglycemia
CPT/HCPCS: 36415; 80053; 82570; 83036; 84155; 84156; 84165; 84166; 85025; 86334; 87086; 87088

== ENCOUNTER 2023-12-28 13:42 | Outpatient (CLI) | payer MEDICARE, MEDICAID, SELFPAY ==
--- NOTE | ~2023-12-28 | XR_ITS ---
EXAMINATION: XR foot RT min 3V DATE: 12/28/2023 14:08 INDICATION: Right foot pain. TECHNIQUE: 4 views of right foot were obtained. COMPARISON: Right ankle radiographs 08/26/2019 FINDINGS: Bone alignment is normal. No fracture. Joint spaces are normal. IMPRESSION: 1. Normal right foot. Reviewed, dictated and finalized at location A. IMPRESSION: 1. Normal right foot.
== END 2023-12-28 13:43 | disposition home or self-care (01) ==
LOC: CHSIMG 13:45
PROVIDERS: PCP Internal Medicine; Visit Provider Internal Medicine
DX: M79.671 Pain in right foot (principal); I73.9 Peripheral vascular disease, unspecified
CPT/HCPCS: 73630

== ENCOUNTER 2024-01-05 13:50 | Outpatient (CLI) | payer MEDICARE, MEDICAID, SELFPAY ==
--- NOTE | ~2024-01-05 | US_ITS ---
EXAMINATION: US arterial ankle brachial ind DATE: 01/05/2024 14:34 INDICATION: Peripheral arterial occlusive disease with cold feet. TECHNIQUE: Segmental pressures and plethysmographic and Doppler waveforms of the brachial and lower e xtremity arteries were obtained. COMPARISON: None. FINDINGS: Right and left brachial artery pressures of 121 mm Hg and 120 mm Hg, respectively, are concordant (no rmal difference <= 30 mmHg). The right ankle-brachial index (ASHLEY) is 1.26 (normal >= 0.9-1.0). The right great toe-brachial index (TBI) is 0.37 (normal >= 0.65). Arterial Doppler waveforms are biphasic with brisk systolic upstrokes at both right posterior tibial and dorsalis pedis arteries. The left ASHLEY is 1.31. The left TBI is 0.63. Arterial Doppler waveforms are biphasic with brisk systol ic upstrokes at both left posterior tibial and dorsalis pedis arteries. IMPRESSION: 1. Peripheral arterial occlusive disease to bilateral lower limbs with normal bilateral ABIs but mode rately decreased right and mildly decreased left TBIs. Reviewed, dictated and finalized at location A. IMPRESSION: 1. Peripheral arterial occlusive disease to bilateral lower limbs with normal b ilateral ABIs but moderately decreased right and mildly decreased left TBIs.
== END 2024-01-05 13:51 | disposition home or self-care (01) ==
LOC: CHSIMG 13:53
PROVIDERS: PCP Internal Medicine; Visit Provider Internal Medicine
DX: M25.571 Pain in right ankle and joints of right foot (principal); I73.9 Peripheral vascular disease, unspecified
CPT/HCPCS: 93922

== ENCOUNTER 2024-01-20 14:31 | Emergency (ER) | payer MEDICARE, MEDICAID, SELFPAY ==
--- NOTE | ~2024-01-20 | XR_ITS ---
EXAMINATION: XR chest 1V portable DATE: 01/20/2024 14:51 INDICATION: Dyspnea. Midsternal chest pain. TECHNIQUE: A single frontal view of the chest was obtained. COMPARISON: Chest one view 01/03/23 FINDINGS: There is no pneumonia, pleural effusion, or pneumothorax. The heart size is normal. IMPRESSION: 1. No acute cardiopulmonary disease. Reviewed, dictated and finalized at location E.
[2024-01-20 14:31] VITALS: RESP 17
[2024-01-20 14:42] VITALS: BP 118/89; PULSE 81; TEMP 37; O2SAT 100
--- NOTE | 2024-01-20 14:42 | ECG_ITS ---
SEE SCANNED COPY FOR CONFIRMED REPORT MTDD
--- NOTE | 2024-01-20 14:42 | ED.GENADULT ---
HPI - General Adult General Chief complaint: Shortness of Breath/Dyspnea Stated complaint: sob Time Seen by Provider: 01/20/24 14:35 History of Present Illness HPI narrative: the patient is a 28-year-old woman with a history of anxiety, depression, GERD, hypothyroidism, obesity, diabetes, ulcerative colitis, asthma, on inhalers. For the last 2 weeks, she describes feeling short of breath, with wheezing, occasional non-productive cough, occasional chest pain. All symptoms are non-specific. She had seen her primary care provider today. He referred to the ER for further evaluation. She has had previous visits to the ER for chest pain and similar complaints, with normal workups in the past. In triage, the vital signs were normal with a saturation of 99% on room air. Related Data Home Medications Medication Instructions Recorded Confirmed albuterol sulfate 90 mcg/actuation 1 puff inhalation Q4-6H PRN 10/21/22 01/20/24 aerosol inhaler Shortness Of Breath Or Wheezing dulaglutide 1.5 mg/0.5 mL 1.5 mg subcut WEEKLY 10/21/22 01/20/24 [facility] levothyroxine 25 mcg capsule 25 mcg PO DAILY 10/21/22 01/20/24 propranolol 60 mg capsule,24 60 mg PO QPM 10/21/22 01/20/24 hr,extended release diclofenac sodium 75 mg 75 mg PO DAILY 10/27/22 01/20/24 tablet,delayed release duloxetine 20 mg capsule,delayed 20 mg PO DAILY 10/27/22 01/20/24 release famotidine 20 mg tablet 40 mg PO DAILY 10/27/22 01/20/24 ferrous gluconate 324 mg (38 mg 324 mg PO DAILY 10/27/22 01/20/24 iron) tablet gabapentin 300 mg capsule 300 mg PO TID 10/27/22 01/20/24 norgestimate 0.18 mg/0.215 mg/0.25 1 tablet PO DAILY 01/03/23 01/20/24 mg-ethinyl estradiol 25 mcg tablet (Tri-Lo-Sasha) Allergies Allergy/AdvReac Type Severity Reaction Status Date / Time adhesive Allergy Intermediate Rash Verified 01/20/24 14:34 amoxicillin Allergy Intermediate Rash Verified 01/20/24 14:34 dexmethylphenidate Allergy Intermediate aggressiven Verified 01/20/24 14:34 ess Penicillins Allergy Intermediate Rash Verified 01/20/24 14:34 cephalexin Allergy Unknown Unknown Verified 01/20/24 14:34 Review of Systems Review of Systems: All systems reviewed & are unremarkable except as noted in HPI and below Constitutional: Constitutional: Denies chills, Denies fatigue and Denies fever(s) Eyes: Eyes: Denies change in vision ENT: Denies lip swelling, Denies nasal congestion, Denies sore throat and Denies tongue swelling Cardiovascular: Cardiovascular: Reports chest pain, Denies syncope and Denies rapid heart rate Respiratory: Respiratory: Reports cough, Reports dyspnea and Reports wheezing Gastrointestinal: Gastrointestinal: Denies abdominal pain, Denies constipation, Denies dysphagia, Denies diarrhea, Denies nausea and Denies vomiting Genitourinary: Genitourinary: Denies hematuria, Denies urinary frequency, Denies dysuria and Denies urinary urgency Musculoskeletal: Musculoskeletal: Denies back pain, Denies myalgias, Denies arthralgias, Denies joint swelling and Denies numbness Integumentary/Breasts: Skin/Breast: Denies pruritus, Denies erythema and Denies rash Neurologic: Denies confusion, Denies dizziness, Denies syncope, Denies headache(s), Denies focal weakness, Denies numbness and Denies weakness Psychiatric: Psychiatric: Reports anxiety Endocrine: Endocrine: Denies excessive sweating and Denies fatigue Hematologic/Lymphatic: Hematologic/Lymphatic: Denies easy bleeding and Denies easy bruising Allergic/Immunologic: Allergic/Immunologic: Denies lip swelling, Denies tongue swelling and Denies wheezing PMFSH Past Medical History Medical History Anxiety Chronic diarrhea Depression GERD (gastroesophageal reflux disease) Hypokalemia Hypothyroidism Iron deficiency anemia Left upper limb pain Morbid obesity Non-specific colitis Scoliosis Type 2 diabetes mellitus Ulcerative c
[2024-01-20 14:53] VITALS: O2SAT 100
[2024-01-20 15:06] VITALS: BP 110/77; PULSE 71; RESP 17; TEMP 37; O2SAT 99
== END 2024-01-20 15:06 | disposition home or self-care (01) ==
PROVIDERS: Emergency Provider Emergency Medicine; PCP Internal Medicine
DX: R06.02 Shortness of breath (principal); F41.9 Anxiety disorder, unspecified; E11.9 Type 2 diabetes mellitus without complications; J45.909 Unspecified asthma, uncomplicated; E03.9 Hypothyroidism, unspecified; K21.9 Gastro-esophageal reflux disease without esophagitis; F32.A Depression, unspecified; D50.9 Iron deficiency anemia, unspecified; Z79.51 Long term (current) use of inhaled steroids; Z79.85 Long-term (current) use of injectable non-insulin antidiabetic drugs
CPT/HCPCS: 71045; 93005; 99283

== ENCOUNTER 2024-02-29 21:50 | Emergency (ER) | payer MEDICARE, MEDICAID, SELFPAY ==
--- NOTE | ~2024-02-29 | XR_ITS ---
EXAMINATION: XR chest 1V portable Exam Date/Time: 02/29/2024 22:40 CDT HISTORY: CP Comparison: 01/20/2024. RESULT: Lines, tubes, and devices: None. Lungs and pleura: Clear. Cardiomediastinal silhouette: Stable. Other: No acute osseous or upper abdominal finding. Scoliosis. IMPRESSION: No acute cardiopulmonary process. Reviewed, dictated and finalized at location K.
--- NOTE | 2024-02-29 21:52 | ED.SOB ---
HPI - SOB/Dyspnea General Chief Complaint: Asthma Stated Complaint: shortness of breath Time Seen by Provider: 02/29/24 21:51 Source: patient Mode of arrival: ambulatory Limitations: no limitations History of Present Illness HPI Narrative: 8-year-old female with obesity anxiety / depression GERD, hypothyroidism, diabetes mellitus ulcerative colitis, asthma presents to the ER with a one-week history of -- shortness of breath -- cough which is nonproductive no fever or chills. No chest pain. MD elicited complaint: shortness of breath and cough Pertinent past history: asthma Onset (ago): week(s) ( One week) Context: anxiety Timing: constant Severity: mild Exacerbating factors: nothing Relieving factors: nothing Known history of: asthma Associated symptoms: denies other symptoms and cough Treatment prior to arrival: none Related Data Home Medications Medication Instructions Recorded Confirmed albuterol sulfate 90 mcg/actuation 1 puff inhalation Q4-6H PRN 10/21/22 01/20/24 aerosol inhaler Shortness Of Breath Or Wheezing dulaglutide 1.5 mg/0.5 mL 1.5 mg subcut WEEKLY 10/21/22 01/20/24 [facility] levothyroxine 25 mcg capsule 25 mcg PO DAILY 10/21/22 01/20/24 propranolol 60 mg capsule,24 60 mg PO QPM 10/21/22 01/20/24 hr,extended release diclofenac sodium 75 mg 75 mg PO DAILY 10/27/22 01/20/24 tablet,delayed release duloxetine 20 mg capsule,delayed 20 mg PO DAILY 10/27/22 01/20/24 release famotidine 20 mg tablet 40 mg PO DAILY 10/27/22 01/20/24 ferrous gluconate 324 mg (38 mg 324 mg PO DAILY 10/27/22 01/20/24 iron) tablet gabapentin 300 mg capsule 300 mg PO TID 10/27/22 01/20/24 norgestimate 0.18 mg/0.215 mg/0.25 1 tablet PO DAILY 01/03/23 01/20/24 mg-ethinyl estradiol 25 mcg tablet (Tri-Lo-Sasha) Allergies Allergy/AdvReac Type Severity Reaction Status Date / Time adhesive Allergy Intermediate Rash Verified 02/29/24 21:52 amoxicillin Allergy Intermediate Rash Verified 02/29/24 21:52 dexmethylphenidate Allergy Intermediate aggressiven Verified 02/29/24 21:52 ess Penicillins Allergy Intermediate Rash Verified 02/29/24 21:52 cephalexin Allergy Unknown Unknown Verified 02/29/24 21:52 Review of Systems Review of Systems: All systems reviewed & are unremarkable except as noted in HPI and below Constitutional: Constitutional: Reports as per HPI and Reports no additional constitutional complaints Eyes: Eyes: Reports as per HPI and Reports no additional eye complaints ENT: Reports system reviewed and no additional complaints, except as documented and Reports as per HPI Cardiovascular: Cardiovascular: Reports as per HPI and Reports no additional cardiovascular complaints Respiratory: Respiratory: Reports as per HPI, Reports no additional respiratory complaints, Reports cough and Reports dyspnea Gastrointestinal: Gastrointestinal: Reports as per HPI and Reports no additional gastrointestinal complaints Genitourinary: Genitourinary: Reports no additional female genitourinary complaints Comments: LMP 3 weeks ago. patient is on oral contraceptive pill Musculoskeletal: Musculoskeletal: Reports no additional musculoskeletal complaints and Reports as per HPI Integumentary/Breasts: Skin/Breast: Reports system reviewed and no additional complaints, except as docu and Reports as per HPI Neurologic: Reports system reviewed and no additional complaints, except as documented and Reports as per HPI Psychiatric: Psychiatric: Reports no additional psychiatric complaints and Reports as per HPI Endocrine: Endocrine: Reports no additional endocrine complaints and Reports as per HPI Hematologic/Lymphatic: Hematologic/Lymphatic: Reports no additional hematologic/lymphatic complaints and Reports as per HPI Allergic/Immunologic: Allergic/Immunologic: Reports no additional allergic/immunologic complaints and Reports as per HPI PMFSH Past Medical History Medical History (Revi
[2024-02-29 21:53] VITALS: O2SAT 100
[2024-02-29 21:54] VITALS: BP 107/87; PULSE 80; RESP 18; TEMP 35.9; O2SAT 96
--- NOTE | 2024-02-29 21:59 | ECG_ITS ---
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 Measurements Intervals [place] Rate: 82 P: 46 [place]: 136 QRS: 39 QRSD: 90 T: 7 QT: 358 QTc: 419 Interpretive Statements SINUS RHYTHM BORDERLINE ST-T WAVE ABNORMALITY- INFERIOR LEADS BASELINE ARTIFACT- I, II, III, AVR, AVL, AVF, V1-V6 BORDERLINE ECG No previous ECG available for comparison Electronically Signed On 03-01-2024 11:20:50 CDT by Noel Sanz D.O.
[2024-02-29 22:21] LABS: Basophils Absolute Auto 0.04 K/mm3 (0.00-0.10); Basophils Percent Auto 0.6 % (0.0-1.0); Eosinophils Absolute Auto 0.31 K/mm3 (0.02-0.50); Eosinophils Percent Auto 4.9 % (1.0-6.0); Hematocrit 39.2 % (35.0-49.0); Hemoglobin 12.5 g/dL (12.0-15.0); Immature Granulocyte Absolute 0.02 K/mm3 (0.00-0.00); Immature Granulocyte Percent A 0.3 % (0.0-0.0); Lymphocytes Absolute Auto 1.72 K/mm3 (1.10-4.50); Lymphocytes Percent Auto 26.9 % (18.0-42.0); Mean Corpuscular HGB Conc 31.9 g/dL (32-36); Mean Corpuscular Hemoglobin 26.4 pg (27.0-31.0); Mean Corpuscular Volume 82.9 fL (78.0-102.0); Mean Platelet Volume 9.8 fl (9.2-11.8); Monocytes Absolute Auto 0.61 K/mm3 (0.10-0.90); Monocytes Percent Auto 9.5 % (2.0-11.0); Neutrophils Absolute Auto 3.69 K/mm3 (1.70-7.20); Neutrophils Percent Auto 57.8 % (50.0-70.0); Platelet Count Result 329 K/mm3 (150-420); Red Blood Count 4.73 M/mm3 (4.20-5.40); Red Cell Distribution Width 13.7 % (11.6-14.4); White Blood Count 6.4 K/mm3 (4.8-10.8)
[2024-02-29 22:26] LABS: Appearance Urine Cloudy (Clear); Bilirubin Urine 2+ (Negative); Blood Urine Negative (Negative); Glucose Urine UA 3+ (Negative); Ketones Urine Trace (Negative); Leukocyte Esterase Ur Negative LEU/UL (Negative); Nitrate Urine Positive (Negative); Protein Urine 2+ (Negative); Specific Grav Ur >= 1.030 (1.010-1.020); pH Urine 5.5 (5.0-8.0)
[2024-02-29 22:32] LABS: Pregnancy On Board Control Positive; Urine Pregnancy Test Negative
[2024-02-29 22:33] LABS: Add Urine Microscopic? YES; Bacteria Urine 2+ /hpf; Color Urine Dark Orange (Yellow); Mucus Urine Moderate /lpf; Squamous Epithelial Cell Urine Many /hpf (Few)
[2024-02-29 22:40] LABS: Lactic Acid Reflex 1.4 mmol/L (0.4-2.0)
[2024-02-29 22:47] LABS: Albumin Level 2.8 g/dL (3.4-5.0); Alkaline Phosphatase 78 U/L (46-116); Anion Gap 11 mmol/L (4-12); Aspartate Amino Transferase 16 U/L (15-37); Bilirubin,Total 0.2 mg/dL (0.00-1.00); Blood Urea Nitrogen 14 mg/dL (7-18); Calcium 8.6 mg/dL (8.5-10.1); Carbon Dioxide 30 mmol/L (21-32); Chloride 102 mmol/L (98-108); Estimated CRCL calculation 80 ml/min; Estimated Glomerular Filt Rate 57; Glucose 179 mg/dL (70-99); NT Pro B Type Natriuretic Pept 101 pg/mL (0-125); Osmolality Calculated 300 mOsm/kg (285-295); Potassium 3.4 mmol/L (3.5-5.1); Sodium 143 mmol/L (136-145); Total Protein 8.5 g/dL (6.4-8.2)
[2024-02-29 22:48] LABS: Alanine Aminotransferase < 6 U/L (14-59)
[2024-02-29 22:58] LABS: SARS-CoV-2 RNA PCR Negative (Negative)
[2024-02-29 23:00] LABS: Influenza A QL RT-PCR Negative (Negative); Influenza B QL RT-PCR Negative (Negative); RSV RNA, RT-PCR Negative (Negative)
[2024-02-29 23:04] LABS: Troponin I < 4.0 ng/L (0.00-60.4)
[2024-02-29 23:07] VITALS: BP 110/71; PULSE 73; O2SAT 98
[2024-02-29] MEDS: POTASSIUM CHLORIDE 20 MEQ ER TABLET PO (23:27)
--- NOTE | 2024-03-03 13:25 | PC.NURSE ---
urine culture reviewed, no growth
== END 2024-02-29 23:30 | disposition home or self-care (01) ==
PROVIDERS: Emergency Provider Internal Medicine Critical Care Medicine; PCP Internal Medicine
DX: F41.9 Anxiety disorder, unspecified (principal); E86.0 Dehydration; J45.909 Unspecified asthma, uncomplicated; E11.9 Type 2 diabetes mellitus without complications; E03.9 Hypothyroidism, unspecified; K21.9 Gastro-esophageal reflux disease without esophagitis; D50.9 Iron deficiency anemia, unspecified; F32.A Depression, unspecified; Z79.51 Long term (current) use of inhaled steroids; Z20.822 Contact with and (suspected) exposure to COVID-19; Z79.899 Other long term (current) drug therapy
CPT/HCPCS: 36415; 71045; 80053; 81001; 81025; 83605; 83880; 84484; 85025; 87086; 87088; 87637; 93005; 99283; A9270

== ENCOUNTER 2024-03-12 11:45 | Outpatient (CLI) | payer MEDICARE, MEDICAID, SELFPAY ==
[2024-03-12 12:33] LABS: Basophils Absolute Auto 0.06 K/mm3 (0.00-0.10); Basophils Percent Auto 0.7 % (0.0-1.0); Eosinophils Absolute Auto 0.39 K/mm3 (0.02-0.50); Eosinophils Percent Auto 4.7 % (1.0-6.0); Hematocrit 39.8 % (35.0-49.0); Immature Granulocyte Absolute 0.04 K/mm3 (0.00-0.00); Immature Granulocyte Percent A 0.5 % (0.0-0.0); Lymphocytes Absolute Auto 2.76 K/mm3 (1.10-4.50); Lymphocytes Percent Auto 33.1 % (18.0-42.0); Mean Corpuscular HGB Conc 32.7 g/dL (32-36); Mean Corpuscular Hemoglobin 27.1 pg (27.0-31.0); Mean Corpuscular Volume 83.1 fL (78.0-102.0); Mean Platelet Volume 9.8 fl (9.2-11.8); Monocytes Absolute Auto 0.77 K/mm3 (0.10-0.90); Monocytes Percent Auto 9.2 % (2.0-11.0); Neutrophils Absolute Auto 4.32 K/mm3 (1.70-7.20); Neutrophils Percent Auto 51.8 % (50.0-70.0); Platelet Count Result 402 K/mm3 (150-420); Red Blood Count 4.79 M/mm3 (4.20-5.40); Red Cell Distribution Width 13.8 % (11.6-14.4); White Blood Count 8.3 K/mm3 (4.8-10.8)
[2024-03-12 13:05] LABS: Hemoglobin A1C 7.9 % (<5.7)
[2024-03-12 13:31] LABS: Alanine Aminotransferase 31 U/L (14-59); Albumin Level 3.2 g/dL (3.4-5.0); Alkaline Phosphatase 110 U/L (46-116); Anion Gap 8 mmol/L (4-12); Aspartate Amino Transferase 21 U/L (15-37); Bilirubin,Total 0.2 mg/dL (0.00-1.00); Blood Urea Nitrogen 14 mg/dL (7-18); Calcium 8.8 mg/dL (8.5-10.1); Carbon Dioxide 31 mmol/L (21-32); Chloride 96 mmol/L (98-108); Estimated Glomerular Filt Rate 53; Glucose 171 mg/dL (70-99); Osmolality Calculated 284 mOsm/kg (285-295); Sodium 135 mmol/L (136-145); Total Protein 8.5 g/dL (6.4-8.2)
== END 2024-03-12 11:46 | disposition home or self-care (01) ==
LOC: CHSLAB 11:47
PROVIDERS: PCP Internal Medicine; Visit Provider Internal Medicine
DX: E11.65 Type 2 diabetes mellitus with hyperglycemia (principal)
CPT/HCPCS: 36415; 80053; 83036; 85025

== ENCOUNTER 2024-06-14 15:48 | Outpatient (CLI) | payer MEDICARE, MEDICAID, SELFPAY ==
[2024-06-14 16:30] LABS: Basophils Absolute Auto 0.05 K/mm3 (0.00-0.10); Basophils Percent Auto 0.7 % (0.0-1.0); Eosinophils Absolute Auto 0.29 K/mm3 (0.02-0.50); Eosinophils Percent Auto 4.1 % (1.0-6.0); Hematocrit 40.8 % (35.0-49.0); Hemoglobin 13.1 g/dL (12.0-15.0); Immature Granulocyte Absolute 0.02 K/mm3 (0.00-0.00); Immature Granulocyte Percent A 0.3 % (0.0-0.0); Lymphocytes Absolute Auto 1.25 K/mm3 (1.10-4.50); Lymphocytes Percent Auto 17.7 % (18.0-42.0); Mean Corpuscular HGB Conc 32.1 g/dL (32-36); Mean Corpuscular Hemoglobin 26.8 pg (27.0-31.0); Mean Corpuscular Volume 83.6 fL (78.0-102.0); Mean Platelet Volume 10.1 fl (9.2-11.8); Monocytes Absolute Auto 0.54 K/mm3 (0.10-0.90); Monocytes Percent Auto 7.6 % (2.0-11.0); Neutrophils Absolute Auto 4.92 K/mm3 (1.70-7.20); Neutrophils Percent Auto 69.6 % (50.0-70.0); Platelet Count Result 305 K/mm3 (150-420); Red Blood Count 4.88 M/mm3 (4.20-5.40); Red Cell Distribution Width 13.5 % (11.6-14.4); White Blood Count 7.1 K/mm3 (4.8-10.8)
[2024-06-14 18:00] LABS: Alanine Aminotransferase 26 U/L (14-59); Albumin Level 3.4 g/dL (3.4-5.0); Alkaline Phosphatase 110 U/L (46-116); Anion Gap 7 mmol/L (4-12); Aspartate Amino Transferase 20 U/L (15-37); Bilirubin,Total 0.2 mg/dL (0.00-1.00); Blood Urea Nitrogen 12 mg/dL (7-18); CRP 2.5 mg/dL (0.0-0.9); Calcium 9.2 mg/dL (8.5-10.1); Carbon Dioxide 30 mmol/L (21-32); Chloride 99 mmol/L (98-108); Estimated Glomerular Filt Rate 47; Glucose 196 mg/dL (70-99); Osmolality Calculated 286 mOsm/kg (285-295); Sodium 136 mmol/L (136-145); Thyroid Stimulating Hormone 2.17 uIU/mL (0.36-3.74); Total Protein 8.3 g/dL (6.4-8.2)
[2024-06-15 06:22] LABS: Hemoglobin A1C 6.5 % (<5.7)
== END 2024-06-14 15:49 | disposition home or self-care (01) ==
PROVIDERS: PCP Internal Medicine; Visit Provider Internal Medicine
DX: E11.9 Type 2 diabetes mellitus without complications (principal)
CPT/HCPCS: 36415; 80053; 83036; 84443; 85025; 86140

== ENCOUNTER 2024-09-13 15:35 | Outpatient (CLI) | payer MEDICARE, MEDICAID, SELFPAY ==
[2024-09-13 16:27] LABS: Hemoglobin A1C 5.7 % (<5.7)
[2024-09-13 16:49] LABS: Alanine Aminotransferase 16 U/L (14-59); Alkaline Phosphatase 94 U/L (46-116); Anion Gap 8 mmol/L (4-12); Aspartate Amino Transferase 12 U/L (15-37); Bilirubin,Total 0.3 mg/dL (0.00-1.00); Blood Urea Nitrogen 14 mg/dL (7-18); Calcium 9.3 mg/dL (8.5-10.1); Carbon Dioxide 31 mmol/L (21-32); Chloride 101 mmol/L (98-108); Estimated Glomerular Filt Rate > 60; Glucose 124 mg/dL (70-99); Osmolality Calculated 291 mOsm/kg (285-295); Potassium 4.2 mmol/L (3.5-5.1); Sodium 140 mmol/L (136-145); Thyroid Stimulating Hormone 1.68 uIU/mL (0.36-3.74); Total Protein 8.2 g/dL (6.4-8.2)
[2024-09-13 17:03] LABS: Basophils Absolute Auto 0.03 K/mm3 (0.00-0.10); Basophils Percent Auto 0.4 % (0.0-1.0); Eosinophils Absolute Auto 0.36 K/mm3 (0.02-0.50); Eosinophils Percent Auto 4.8 % (1.0-6.0); Hematocrit 36.8 % (35.0-49.0); Hemoglobin 11.5 g/dL (12.0-15.0); Immature Granulocyte Absolute 0.03 K/mm3 (0.00-0.00); Immature Granulocyte Percent A 0.4 % (0.0-0.0); Lymphocytes Absolute Auto 1.31 K/mm3 (1.10-4.50); Lymphocytes Percent Auto 17.3 % (18.0-42.0); Mean Corpuscular HGB Conc 31.3 g/dL (32-36); Mean Corpuscular Hemoglobin 27.1 pg (27.0-31.0); Mean Corpuscular Volume 86.6 fL (78.0-102.0); Mean Platelet Volume 9.8 fl (9.2-11.8); Monocytes Absolute Auto 0.58 K/mm3 (0.10-0.90); Monocytes Percent Auto 7.7 % (2.0-11.0); Neutrophils Absolute Auto 5.25 K/mm3 (1.70-7.20); Neutrophils Percent Auto 69.4 % (50.0-70.0); Platelet Count Result 435 K/mm3 (150-420); Red Blood Count 4.25 M/mm3 (4.20-5.40); Red Cell Distribution Width 16.3 % (11.6-14.4); White Blood Count 7.6 K/mm3 (4.8-10.8)
== END 2024-09-13 15:36 | disposition home or self-care (01) ==
PROVIDERS: PCP Internal Medicine; Visit Provider Internal Medicine
DX: E11.65 Type 2 diabetes mellitus with hyperglycemia (principal); E03.9 Hypothyroidism, unspecified
CPT/HCPCS: 36415; 80053; 83036; 84443; 85025

== ENCOUNTER 2024-11-06 14:04 | Outpatient (CLI) | payer MEDICARE, MEDICAID, SELFPAY ==
--- OUTSIDE RECORDS SUMMARY | 2024-11-06 14:23 | XMS_ITS | Encounter Summary ---
Author Organization [facility] Address [address] [place] [address]. [place] [address] [place] [address] Care Team Providers Care Media Coordinator Name Role Phone Aiden Harkins MD Primary Care Provider [phone] Encounter Details Date Type Department Care Team (Late st Contact Info) Description 12/17/2017 Abstract SJS CONVERSION [address] [place] [address] , Generic ConversionMD Social History Tobacco Use Types Packs/Day Years Used Date Smoking Tobacco: Never Assessed Comments Unknown Sex and Gender Information Value Date Recorded Sex Assigned at Not on file Legal Sex Female 4:58 PM CDT Gender Identity Not on file Sexual Orientation Not on file documented as of this encounter Plan of Treatment Not on file documented as of this encounter Visit Diagnoses Not on filedocumented in this encounter Care Teams Media Coordinator Relationship Specialty Start Date End Date Aiden Harkins MD [address] [place] [address] PCP - General INTERNAL MEDICINE 01/23/19 documented as of this encounter
--- OUTSIDE RECORDS SUMMARY | 2024-11-06 14:23 | XMS_ITS | Clinical Summary ---
Author Organization [facility] Caridad Wilhelm Address [address] [place] [address] Care Team Providers Care Pedodontist Name Role Phone Aiden Harkins MD Primary Care Provider [phone] Allergies Active Allergy Reactions Criticality Noted Date Comments Amoxicillin Rash Low 08/09/2013 Medications famotidine (PEPCID) 40 mg tablet Take 40 mg by mouth daily. 0 Active gabapentin (NEURONTIN) 300 mg capsule Gabapentin 300 MG Oral CapsuleTAKE 1 CAPSULE IN THE MORNING AND 2 CAPSULES AT BEDTIME.-2016Active Active levothyroxine 25 mcg tablet Take 1 Tablet by mouth daily. Active diclofenac-miSO PROStol (ARTHROTEC) 75-200 mg-mcg Tab,IR & Delay Rel,Multiphasic Take 1 Tablet by mouth daily after breakfast. Active ferrous fumarate (FERROCITE,HEMO CYTE) 324 mg (106 mg iron) Tablet Take 324 mg by mouth. Active DULoxetine (CYMBALTA) 20 mg Capsule, Delayed Release(E.C.) Take 20 mg by mouth daily. Active propranoloL (INDERAL) 60 mg Tablet Take 60 mg by mouth every 8 hours. Active norgestimate-et hinyl estradiol (TRI-SPRINTEC, 28, ORAL) Take by mouth. Activ e dulaglutide (Trulicity) 1.5 mg/0.5 mL injection Inject 1.5 mg by subcutaneous injection. Active mesalamine (LIALDA) 1.2 gram Tablet, Delayed Release (E.C.) Take 2.4 Grams by mouth daily with breakfast. Active Active Problems No known active problems Family History Medical History Relation Name Comments Diabetes Brother Thyroid Disease Brother Diabetes Father Heart Disease Father Diabetes Mother Heart Disease Mother No Known Problems Sister 1 No Known Problems Sister 2 Relation Name Status Comments Brother Alive Father Alive Mother Alive Sister 1 Alive Sister 2 Alive Social History Tobacco Use Types Packs/Day Years Used Date Smoking Tobacco: Never Smokeless Tobacco: Never Alcohol Use Standard Drinks/Week Comments Yes 0 (1 standard drink = 0.6 oz pur e alcohol) socially Comments Unknown Sex and Gender Information Value Date Recorded Sex Assigned at Not on file Legal Sex Female 10:59 AM INSOLE ROUNDER Gender Identity Not on file Sexual Orientation Not on file Last Filed Vital Signs Vital Sign Reading Time Taken Comments Blood Pressure 112/60 03/10/2023 2:32 PM CDT Pulse 78 03/10/2023 2:32 PM CDT Temperature 36 ??C (96.8 ??F) 03/10/2023 2:32 PM CDT Respiratory Rate 10 03/10/2023 2:32 PM CDT Oxygen Saturation 100% 03/10/2023 2:32 PM CDT Inhaled Oxygen Concentration - - Weight 97.1 kg (214 lb) 03/10/2023 2:32 PM CDT Height 167.6 cm (5' 6 ) 11/22/2022 3:00 PM INSOLE ROUNDER Body Mass Index 34.54 11/22/2022 3:00 PM INSOLE ROUNDER Plan of Treatment Health Maintenance Due Date Last Done Comments PNEUMOCOCCAL VACCINE 0-64 YE ARS (1 of 2 - PCV) 2002 DIABETES ANNUAL FOOT EXAM 2014 DIABETES ANNUAL RETINAL EXAM 2014 DIABETES MICROALBUMIN ANNUAL SCREEN 2014 LDL CHOLESTEROL ANNUAL 2014 DTAP/TDAP/TD VACCINES (1 - Tdap) 2015 HEPATITIS B VACCINES (1 of 3 - 19+ 3-dose series) 2015 CERVICAL CANCER SCREENING 2017 DIABETES HBA1C Q 6 MONTHS 07/25/2019 01/23/2019 INFLUENZA VACCINE (#1) 2024 HPV VACCINES Aged Out No longer eligi ble based on patient's age to complete this topic Insurance MEDICAID [place] MEDICARE PART A AND B Care Teams Pedodontist Relationship Specialty Start Date End Date Aiden Harkins MD [address] [place] [address] PCP - General Internal Medicine 11/22/22
--- OUTSIDE RECORDS SUMMARY | 2024-11-06 14:23 | XMS_ITS | Clinical Summary ---
Author Organization [facility] Address [facility]. [place], [place] [address] [place] [address] Care Team Providers Care Marble Setter Name Role Phone Aiden Harkins MD Primary Care Provider [phone] Allergies Active Allergy Reactions Criticality Noted Date Comments Amoxicillin Unknown 08/09/2013 Medications topiramate (TOPAMAX) 100 MG tablet Take 1 tablet by mouth nightly at bedtime. Active Norgestimate-Et hinyl Estradiol (TRINESSA LO) 0.18/0.215/0.25 MG-25 MCG tablet TriNessa Lo 0.18/0.215/0.25 MG-25 MCG [id number] jhonny 7 Active levothyroxine 25 MCG tablet Take 1 tablet by mouth daily. Active TRUEPLUS LANCETS 33G Misc nightly at bedtime. 8 Active gabapentin 300 MG capsule Gabapentin 300 MG Oral CapsuleTAKE 1 CAPSULE IN THE MORNING AND 2 CAPSULES AT BEDTIME.2016Active Active duloxetine 20 MG capsule Take 1 capsule by mouth daily. 8 Active Docusate Sodium 100 MG Tab Take 1 tablet by mouth 2 (two) times daily. Active Blood Glucose Monitoring Suppl (TRUE METRIX METER) w/Device Kit nightly at bedtime. 8 Active VENTOLIN HFA 108 (90 Base) MCG/ACT inhaler INHALE 1 PUFF PO Q 6 H PRN 0 Active famotidine 40 MG tablet Take 40 mg by mouth daily. 0 Active TRUE METRIX BLOOD GLUCOSE TEST test stripIndication s:Type 2 diabetes mellitus with diabetic polyneuropathy, without long-term current use of insulin ([facility]) USE TO TEST BLOOD SUGARS AT BEDTIME 100 strip 3 0 Active pioglitazone 15 MG tabletIndicatio ns:Type 2 diabetes mellitus with diabetic polyneuropathy, without long-term current use of insulin ([facility]) TAKE 1 TABLET(15 MG) BY MOUTH DAILY. Must schedule and complete appointment for further refills. 90 tablet 1 1 Active metFORMIN ER 500 MG 24 hr tabletIndicatio ns:Type 2 diabetes mellitus with diabetic polyneuropathy, without long-term current use of insulin ([facility]) TAKE 2 TABLETS(1000 MG) BY MOUTH DAILY WITH SUPPER 180 tablet 1 1 Active linaGLIPtin (TRADJENTA) 5 MG tabletIndicatio ns:Type 2 diabetes mellitus with diabetic polyneuropathy, without long-term current use of insulin ([facility]) TAKE 1 TABLET(5 MG) BY MOUTH DAILY. FOLLOW-UP APPOINTMENT 90 tablet 1 1 Active Active Problems Problem Noted Date Diagnosed Date Depression with anxiety 12/20/2017 Acquired hypothyroidism 08/19/2017 Diabetic peripheral neuropathy ([facility]) 06/17/2015 Overview (01/25/2019): Transitioned From: Burning sensation in lower extremity Type 2 diabetes mellitus wit h diabetic polyneuropathy, without long-term current use of insulin ([facility]) 08/07/2013 Family History Medical History Relation Comments Hypertension Father Stroke Father Diabetes Mother Hypertension Mother Relation Status Comments Father Mother Social History Tobacco Use Types Packs/Day Years Used Date Smoking Tobacco: Never Smokeless Tobacco: Never Comments Unknown Sex and Gender Information Value Date Recorded Sex Assigned at Not on file Legal Sex Female 4:58 PM CDT Gender Identity Not on file Sexual Orientation Not on file Last Filed Vital Signs Vital Sign Reading Time Taken Comments Blood Pressure 122/68 01/23/2019 3:46 PM CDT Pulse 102 01/23/2019 3:46 PM CDT Temperature - - Respiratory Rate - - Oxygen Saturation - - Inhaled Oxygen Concentration - - Weight 97.1 kg (214 lb) 01/23/2019 3:46 PM CDT Height 165.1 cm (5' 5 ) 01/23/2019 3:46 PM CDT Body Mass Index 35.61 01/23/2019 3:46 PM CDT Plan of Treatment Health Maintenance Due Date Last Done Comments Cervical Cancer Screening Pap Smear (Age 21 to 29) Every 3 Years 1996 Cervical Cancer Screening 1996 Kidney Health Evaluation 1996 Lipid Panel 1996 Annual Physical 1999 Pneumococcal Vaccine: Pediatrics (0 to 5 Years) and At-Risk Patients (6 to 64 Years) (1 of 2 - PCV) 2002 Diabetes: Retinopathy Eye Exam 2014 Hepatitis C 2014 DTaP, Tdap and Td Vaccines (1 - Tdap) 2015 Hepatitis B Vaccines (1 of 3 - 19+ 3-dose series) 2015 Hemoglobin A1C 07/25/2019 01/23/2019, 07/04, 03/24/2018, Additional history exists COVID-19 Vaccine (2023- season) 2024 Influenza Adult (#1) 2024 HPV Vaccines Aged Out No longer eligi ble based on patient's age to complete this topic Meningococcal B Vaccine Aged Out No l onger eligible based on patient's age to complete this topic Meningococcal Vaccine Aged Out No doris melvin eligible based on patient's age to complete this topic RSV Immunizations Under 20 Months Aged Out No longer eligible based on patient's age to complete this topic Procedures Procedure Name Priority Date/Time Associated Diagnosis Comments HEMOGLOBIN, GLYCOSYLATED Routine 01/23/2019 Type 2 diabetes mellitus with diabetic polyneuropathy, without long-term current use of insulin ([facility]) from Last 3 Months or Most Recently Relevant to Health Maintenance Results * HEMOGLOBIN, GLYCOSYLATED (01/23/2019) HGB A1C 6.[address] [place] 01/23/2019 us Jihan Juárez MD LABORATORY Final Result [address] [place] [address] [place] [address], from Last 3 Months or Most Recently Relevant to Health Maintenance Insurance MEDICARE MEDICAID Care Teams Marble Setter Relationship Specialty Start Date End Date Aiden Harkins MD [address] [place] [address] PCP - General INTERNAL MEDICINE 01/23/19
--- OUTSIDE RECORDS SUMMARY | 2024-11-06 14:23 | XMS_ITS | Encounter Summary ---
Author Organization [facility] Address [address] [place] [address]. [place] [address] [place] [address] Care Team Providers Care Neck Cutter Name Role Phone Aiden Harkins MD Primary Care Provider [phone] Encounter Details Date Type Department Care Team (Late st Contact Info) Description 03/10/2019 Abstract SFL CONVERSION [address] [place] [address] , Generic Conversion, Social History Tobacco Use Types Packs/Day Years [...] on filedocumented in this encounter Care Teams Neck Cutter Relationship Specialty Start Date End Date Aiden Harkins MD [address] [place] [address] PCP - General INTERNAL MEDICINE 01/23/19 documented as of this encounter
[2024-11-06 14:57] LABS: Hematocrit 38.4 % (37.0-47.0); Hemoglobin 12.1 g/dL (12.0-15.0); Mean Corpuscular HGB Conc 31.5 g/dl (32-36); Mean Corpuscular Hemoglobin 27.8 pg (26-34); Mean Corpuscular Volume 88.1 fl (80-100); Platelet Count Result 329 k/mm3 (150-375); Red Blood Count 4.36 M/mm3 (4.2-5.4); Red Cell Distribution Width 14.2 % (11.5-14.5); White Blood Count 7.8 K/mm3 (4.5-10.0)
[2024-11-06 15:12] LABS: Alanine Aminotransferase 13 U/L (6-35); Albumin Level 4.2 g/dL (3.5-5.1); Alkaline Phosphatase 94 U/L (38-126); Anion Gap 10 mmol/L (4-12); Aspartate Amino Transferase 19 U/L (14-36); Bilirubin,Total 0.5 mg/dL (0.2-1.3); Blood Urea Nitrogen 18 mg/dL (7-17); CRP 4.9 mg/dL (<1.0); Calcium 9.3 mg/dL (8.4-10.2); Carbon Dioxide 28 mmol/L (22-30); Chloride 99 mmol/L (98-107); Estimated Glomerular Filt Rate 60; Glucose 119 mg/dL (65-110); Potassium 4.1 mmol/L (3.4-5.0); Sodium 137 mmol/L (137-145)
[2024-11-06 15:42] LABS: Iron 27 ug/dL (37-170)
[2024-11-06 15:47] LABS: Erythrocyte Sedimentation Rate 13 mm/hr (0-20)
[2024-11-06 15:51] LABS: Percent Iron Saturation 9 % (20-50)
== END 2024-11-06 14:05 | disposition home or self-care (01) ==
PROVIDERS: PCP Internal Medicine; Visit Provider Nurse Practitioner
DX: K51.90 Ulcerative colitis, unspecified, without complications (principal); D50.9 Iron deficiency anemia, unspecified
CPT/HCPCS: 36415; 80053; 82728; 83540; 83550; 85027; 85652; 86140

== ENCOUNTER 2024-12-13 13:49 | Outpatient (CLI) | payer MEDICARE, MEDICAID, SELFPAY ==
[2024-12-13 14:12] LABS: Basophils Absolute Auto 0.03 K/mm3 (0.00-0.10); Basophils Percent Auto 0.3 % (0.0-1.0); Eosinophils Absolute Auto 0.29 K/mm3 (0.02-0.50); Eosinophils Percent Auto 3.2 % (1.0-6.0); Hematocrit 37.2 % (35.0-49.0); Hemoglobin 10.9 g/dL (12.0-15.0); Immature Granulocyte Absolute 0.09 K/mm3 (0.00-0.00); Immature Platelet Fraction Pct 1.1 % (1.0-7.0); Lymphocytes Absolute Auto 0.96 K/mm3 (1.10-4.50); Lymphocytes Percent Auto 10.7 % (18.0-42.0); Mean Corpuscular HGB Conc 29.3 g/dL (32-36); Mean Corpuscular Hemoglobin 26.9 pg (27.0-31.0); Mean Corpuscular Volume 91.9 fL (78.0-102.0); Monocytes Absolute Auto 0.52 K/mm3 (0.10-0.90); Monocytes Percent Auto 5.8 % (2.0-11.0); Neutrophils Absolute Auto 7.09 K/mm3 (1.70-7.20); Platelet Count Result 594 K/mm3 (150-420); Red Blood Count 4.05 M/mm3 (4.20-5.40); Red Cell Distribution Width 19.2 % (11.6-14.4)
[2024-12-13 15:03] LABS: Hemoglobin A1C 5.9 % (<5.7)
[2024-12-13 15:13] LABS: Alanine Aminotransferase 23 U/L (14-59); Albumin Level 2.6 g/dL (3.4-5.0); Alkaline Phosphatase 82 U/L (46-116); Anion Gap 10 mmol/L (4-12); Aspartate Amino Transferase 12 U/L (15-37); Bilirubin,Total 0.3 mg/dL (0.00-1.00); Blood Urea Nitrogen 15 mg/dL (7-18); Calcium 8.9 mg/dL (8.5-10.1); Carbon Dioxide 28 mmol/L (21-32); Chloride 102 mmol/L (98-108); Estimated Glomerular Filt Rate > 60; Glucose 146 mg/dL (70-99); Osmolality Calculated 293 mOsm/kg (285-295); Potassium 5.5 mmol/L (3.5-5.1); Sodium 140 mmol/L (136-145); Thyroid Stimulating Hormone 3.16 uIU/mL (0.36-3.74); Total Protein 8.2 g/dL (6.4-8.2)
--- OUTSIDE RECORDS SUMMARY | 2024-12-13 15:39 | XMS_ITS | Clinical Summary ---
Author Organization [facility] Caridad Wilhelm Address [address] [place] [address] Care Team Providers Care Tire Technician Name Role Phone Aiden Harkins MD Primary Care Provider [phone] Allergies Active Allergy Reactions Criticality Noted Date [...] on file Legal Sex Female 10:59 AM AIRCRAFT BODY REPAIRER Gender Identity Not on file Sexual Orientation Not on file Last Filed Vital Signs Vital Sign Reading Time Taken Comments Blood Pressure 112/60 03/10/2023 2:32 PM CDT Pulse 78 03/10/2023 2:32 PM CDT Temperature 36 C (96.8 F) 03/10/2023 2:32 PM CDT Respiratory Rate 10 03/10/2023 2:32 PM CDT Oxygen Saturation 100% 03/10/2023 2:32 PM CDT Inhaled Oxygen Concentration - - Weight 97.1 kg (214 lb) 03/10/2023 2:32 PM CDT Height 167.6 cm (5' 6 ) 11/22/2022 3:00 PM AIRCRAFT BODY REPAIRER Body Mass Index 34.54 11/22/2022 3:00 PM AIRCRAFT BODY REPAIRER Plan of Treatment Health Maintenance Due Date Last Done Comments PNEUMOCOCCAL VACCINE 0-49 YE ARS (1 of 2 - PCV) [...] MEDICARE PART A AND B Care Teams Tire Technician Relationship Specialty Start Date End Date Aiden Harkins MD [address] [place] [address] PCP - General Internal Medicine 11/22/22
--- OUTSIDE RECORDS SUMMARY | 2024-12-13 15:39 | XMS_ITS | Encounter Summary ---
Author Organization [facility] Address [facility] [place] [address] Care Team Providers Care Co Director Name Role Phone Aiden Harkins MD Primary Care Provider [phone] Encounter Details Date Type Department Care Team (Late st Contact Info) Description 12/17/2017 Abstract SJS CONVERSION [address] [place] [address] , Generic MD Compa Social History Tobacco Use Types Packs/Day Years [...] on filedocumented in this encounter Care Teams Co Director Relationship Specialty Start Date End Date Aiden Harkins MD [address] [place] [address] PCP - General INTERNAL MEDICINE 01/23/19 documented as of this encounter
--- OUTSIDE RECORDS SUMMARY | 2024-12-13 15:39 | XMS_ITS | Encounter Summary ---
Author Organization [facility] Address [facility] [place] [address] Care Team Providers Care Buffet Attendant Name Role Phone Aiden Harkins MD Primary Care Provider [phone] Encounter Details Date Type Department Care Team (Late st Contact Info) Description 03/10/2019 Abstract SFL CONVERSION [address] [place] [address] , Generic Conversion, Social History Tobacco Use [...] on filedocumented in this encounter Care Teams Buffet Attendant Relationship Specialty Start Date End Date Aiden Harkins MD [address] [place] [address] PCP - General INTERNAL MEDICINE 01/23/19 documented as of this encounter
--- OUTSIDE RECORDS SUMMARY | 2024-12-13 15:39 | XMS_ITS | Clinical Summary ---
Author Organization [facility] Address [address] [place] [address] Care Team Providers Care Master Scheduler Name Role Phone Aiden Harkins MD Primary Care Provider [phone] Allergies Active Allergy Reactions Criticality Noted Date Comments Amoxicillin Unknown 08/09/2013 Medications topiramate (TOPAMAX) 100 MG tablet Take 1 tablet by mouth nightly at bedtime. Active Norgestimate-Et hinyl Estradiol (TRINESSA LO) 0.18/0.215/0.25 MG-25 MCG tablet TriNessa Lo 0.18/0.215/0.25 MG-25 MCG [id number] jhonny 7 Active levothyroxine 25 MCG tablet [...] polyneuropathy, without long-term current use of insulin ([facility]) USE TO TEST BLOOD SUGARS AT BEDTIME 100 strip 3 0 Active pioglitazone 15 MG tabletIndicatio ns:Type 2 diabetes mellitus with diabetic polyneuropathy, without long-term current use of insulin ([facility]) TAKE 1 TABLET(15 MG) BY MOUTH DAILY. Must schedule and complete appointment for further refills. 90 tablet 1 1 Active metFORMIN ER 500 MG 24 hr tabletIndicatio ns:Type 2 diabetes mellitus with diabetic polyneuropathy, without long-term current use of insulin ([facility]) TAKE 2 TABLETS(1000 MG) BY MOUTH DAILY WITH SUPPER 180 tablet 1 1 Active linaGLIPtin (TRADJENTA) 5 MG tabletIndicatio ns:Type 2 diabetes mellitus with diabetic polyneuropathy, without long-term current use of insulin ([facility]) TAKE 1 TABLET(5 MG) BY MOUTH DAILY. FOLLOW-UP APPOINTMENT 90 tablet 1 1 Active Active Problems Problem Noted Date Diagnosed Date Depression with anxiety 12/20/2017 Acquired hypothyroidism 08/19/2017 Diabetic peripheral neuropathy ([facility]) 06/17/2015 Overview (01/25/2019): Transitioned From: Burning sensation in lower extremity Type 2 diabetes mellitus wit h diabetic polyneuropathy, without long-term current use of insulin ([facility]) 08/07/2013 Family History Medical History Relation Comments [...] polyneuropathy, without long-term current use of insulin from Last 3 Months or Most Recently Relevant to Health Maintenance Results * HEMOGLOBIN, GLYCOSYLATED (01/23/2019) HGB A1C 6.[address] [place] 01/23/2019 us Jihan Juárez MD LABORATORY Final Result [address] [place] [id number] [facility] [place] [address], [place] [phone] from Last 3 Months or Most Recently Relevant to Health Maintenance Insurance MEDICARE MEDICAID Care Teams Master Scheduler Relationship Specialty Start Date End Date Aiden Harkins MD [address] [place] [address] PCP - General INTERNAL MEDICINE 01/23/19
== END 2024-12-13 13:50 | disposition home or self-care (01) ==
LOC: CHSLAB 13:51
PROVIDERS: PCP Internal Medicine; Visit Provider Internal Medicine
DX: E11.65 Type 2 diabetes mellitus with hyperglycemia (principal); E03.9 Hypothyroidism, unspecified
CPT/HCPCS: 36415; 80053; 83036; 84443; 85025; 85055

== ENCOUNTER 2024-12-14 14:38 | Outpatient (CLI) | payer MEDICARE, SELFPAY ==
--- OUTSIDE RECORDS SUMMARY | 2024-12-14 14:42 | XMS_ITS | Encounter Summary ---
Author Organization [facility] Address [facility] [place] [address] Care Team Providers Care Aircraft Assembler Name Role Phone Aiden Harkins MD Primary Care Provider [phone] Encounter Details Date Type Department Care Team (Late st Contact Info) Description 03/10/2019 Abstract SFL CONVERSION [address] [place] [address] , Generic Conversion, Social History Tobacco Use [...] on filedocumented in this encounter Care Teams Aircraft Assembler Relationship Specialty Start Date End Date Aiden Harkins MD [address] [place] [address] PCP - General INTERNAL MEDICINE 01/23/19 documented as of this encounter
--- OUTSIDE RECORDS SUMMARY | 2024-12-14 14:42 | XMS_ITS | Clinical Summary ---
Author Organization [facility] Address [address] [place] [address] Care Team Providers Care Buffer Inflated Pad Name Role Phone Aiden Harkins MD Primary Care Provider [phone] Allergies Active Allergy Reactions Criticality Noted Date Comments Amoxicillin Unknown 08/09/2013 Medications topiramate (TOPAMAX) 100 MG tablet Take 1 tablet by mouth nightly at bedtime. Active Norgestimate-Et hinyl Estradiol (TRINESSA LO) 0.18/0.215/0.25 MG-25 MCG tablet TriNessa Lo 0.18/0.215/0.25 MG-25 MCG [id number] jhonny 7 Active levothyroxine 25 MCG tablet [...] polyneuropathy, without long-term current use of insulin ([facility]) USE TO TEST BLOOD SUGARS AT BEDTIME 100 strip 3 0 Active pioglitazone 15 MG tabletIndicatio ns:Type 2 diabetes mellitus with diabetic polyneuropathy, without long-term current use of insulin ([facility]) TAKE 1 TABLET(15 MG) BY MOUTH DAILY. Must schedule and complete appointment for further refills. 90 tablet 1 1 Active metFORMIN ER 500 MG 24 hr tabletIndicatio ns:Type 2 diabetes mellitus with diabetic polyneuropathy, without long-term current use of insulin ([facility]) TAKE 2 TABLETS(1000 MG) BY MOUTH DAILY WITH SUPPER 180 tablet 1 1 Active linaGLIPtin (TRADJENTA) 5 MG tabletIndicatio ns:Type 2 diabetes mellitus with diabetic polyneuropathy, without long-term current use of insulin ([facility]) TAKE 1 TABLET(5 MG) BY MOUTH DAILY. FOLLOW-UP APPOINTMENT 90 tablet 1 1 Active Active Problems Problem Noted Date Diagnosed Date Depression with anxiety 12/20/2017 Acquired hypothyroidism 08/19/2017 Diabetic peripheral neuropathy ([facility]) 06/17/2015 Overview (01/25/2019): Transitioned From: Burning sensation in lower extremity Type 2 diabetes mellitus wit h diabetic polyneuropathy, without long-term current use of insulin ([facility]) 08/07/2013 Family History Medical History Relation Comments [...] (01/23/2019) HGB A1C 6.[address] [place] 01/23/2019 us Jihan Juárez MD LABORATORY Final Result [address] [place] [id number] [facility] [place] [address], [place] [phone] from Last 3 Months or Most Recently Relevant to Health Maintenance Insurance MEDICARE MEDICAID Care Teams Buffer Inflated Pad Relationship Specialty Start Date End Date Aiden Harkins MD [address] [place] [address] PCP - General INTERNAL MEDICINE 01/23/19
--- OUTSIDE RECORDS SUMMARY | 2024-12-14 14:42 | XMS_ITS | Clinical Summary ---
Author Organization [facility] Caridad Wilhelm Address [address] [place] [address] Care Team Providers Care Cover Cutter Machine Name Role Phone Aiden Harkins MD Primary Care Provider [phone] Allergies Active Allergy Reactions Criticality Noted Date [...] on file Legal Sex Female 10:59 AM REPAIR DEPARTMENT MANAGER Gender Identity Not on file Sexual Orientation [...] cm (5' 6 ) 11/22/2022 3:00 PM REPAIR DEPARTMENT MANAGER Body Mass Index 34.54 11/22/2022 3:00 PM REPAIR DEPARTMENT MANAGER Plan of Treatment Health Maintenance Due Date [...] MEDICARE PART A AND B Care Teams Cover Cutter Machine Relationship Specialty Start Date End Date Aiden Harkins MD [address] [place] [address] PCP - General Internal Medicine 11/22/22
--- OUTSIDE RECORDS SUMMARY | 2024-12-14 14:42 | XMS_ITS | Encounter Summary ---
Author Organization [facility] Address [facility] [place] [address] Care Team Providers Care Line Mover Name Role Phone Aiden Harkins MD Primary Care Provider [phone] Encounter Details Date Type Department Care Team (Late st Contact Info) Description 12/17/2017 Abstract SJS CONVERSION [address] [place] [address] , Generic MD Compa Social History Tobacco [...] on filedocumented in this encounter Care Teams Line Mover Relationship Specialty Start Date End Date Aiden Harkins MD [address] [place] [address] PCP - General INTERNAL MEDICINE 01/23/19 documented as of this encounter
[2024-12-14 15:06] LABS: MALB Creatinine Ratio 23.4 mg/g (0-30); Microalbumin Urine Random 25.8 mg/L
== END 2024-12-14 14:39 | disposition home or self-care (01) ==
LOC: CHSLAB 14:39
PROVIDERS: PCP Internal Medicine; Visit Provider Internal Medicine
DX: E11.65 Type 2 diabetes mellitus with hyperglycemia (principal); E03.9 Hypothyroidism, unspecified
CPT/HCPCS: 82043

== ENCOUNTER 2024-12-25 13:28 | Outpatient (CLI) | payer MEDICARE, SELFPAY ==
[2024-12-25 13:55] LABS: Basophils Absolute Auto 0.04 K/mm3 (0.00-0.10); Basophils Percent Auto 0.6 % (0.0-1.0); Eosinophils Absolute Auto 0.49 K/mm3 (0.02-0.50); Eosinophils Percent Auto 7.9 % (1.0-6.0); Immature Granulocyte Absolute 0.04 K/mm3 (0.00-0.00); Immature Granulocyte Percent A 0.6 % (0.0-0.0); Immature Reticulocyte Fraction 20.3 % (2.0-16.52); Lymphocytes Percent Auto 17.8 % (18.0-42.0); Mean Corpuscular HGB Conc 29.7 g/dL (32-36); Mean Corpuscular Volume 94.1 fL (78.0-102.0); Mean Platelet Volume 9.2 fl (9.2-11.8); Monocytes Absolute Auto 0.53 K/mm3 (0.10-0.90); Monocytes Percent Auto 8.6 % (2.0-11.0); Neutrophils Absolute Auto 3.98 K/mm3 (1.70-7.20); Neutrophils Percent Auto 64.5 % (50.0-70.0); Platelet Count Result 400 K/mm3 (150-420); Red Blood Count 3.93 M/mm3 (4.20-5.40); Red Cell Distribution Width 20.2 % (11.6-14.4); Reticulocyte Hemoglobin Conten 32.5 pg (28.0-35.0); Reticulocyte Percent 4.83 % (0.50-1.50); Reticulocytes Absolute 0.19 M/mm3 (0.02-0.10); White Blood Count 6.2 K/mm3 (4.8-10.8)
[2024-12-25 15:16] LABS: Ferritin 102 ng/mL (8-252); Iron 53 ug/dL (50-170); Percent Iron Saturation 17 % (12-57)
--- OUTSIDE RECORDS SUMMARY | 2024-12-25 15:40 | XMS_ITS | Encounter Summary ---
Author Organization [facility] Address [facility] [place] [address] Care Team Providers Care Hydrochloric Area Supervisor Name Role Phone Aiden Harkins MD Primary Care Provider [phone] Encounter Details Date Type Department Care Team (Late st Contact Info) Description 12/17/2017 Abstract SJS CONVERSION [address] [place] [address] , Generic MD Compa Social History Tobacco [...] on filedocumented in this encounter Care Teams Hydrochloric Area Supervisor Relationship Specialty Start Date End Date Aiden Harkins MD [address] [place] [address] PCP - General INTERNAL MEDICINE 01/23/19 documented as of this encounter
--- OUTSIDE RECORDS SUMMARY | 2024-12-25 15:40 | XMS_ITS | Encounter Summary ---
Author Organization [facility] Address [facility] [place] [address] Care Team Providers Care Cabin Outfitter Name Role Phone Aiden Harkins MD Primary Care Provider [phone] Encounter Details Date Type Department Care Team (Late st Contact Info) Description 03/10/2019 Abstract SFL CONVERSION [address] [place] [address] , Generic Conversion, Social History Tobacco Use [...] on filedocumented in this encounter Care Teams Cabin Outfitter Relationship Specialty Start Date End Date Aiden Harkins MD [address] [place] [address] PCP - General INTERNAL MEDICINE 01/23/19 documented as of this encounter
--- OUTSIDE RECORDS SUMMARY | 2024-12-25 15:40 | XMS_ITS | Clinical Summary ---
Author Organization [facility] Address [address] [place] [address] Care Team Providers Care Customer Service Correspondence Clerk Name Role Phone Aiden Harkisn MD Primary Care Provider [phone] Allergies Active Allergy Reactions Criticality Noted Date Comments Amoxicillin Unknown 08/09/2013 Medications topiramate (TOPAMAX) 100 MG tablet Take 1 tablet by mouth nightly at bedtime. Active Norgestimate-Et hinyl Estradiol (TRINESSA LO) 0.18/0.215/0.25 MG-25 MCG tablet TriNessa Lo 0.18/0.215/0.25 MG-25 MCG [id number] jhonny 7 Active levothyroxine 25 MCG tablet [...] polyneuropathy, without long-term current use of insulin ([facility]) USE TO TEST BLOOD SUGARS AT BEDTIME 100 strip 3 0 Active pioglitazone 15 MG tabletIndicatio ns:Type 2 diabetes mellitus with diabetic polyneuropathy, without long-term current use of insulin ([facility]) TAKE 1 TABLET(15 MG) BY MOUTH DAILY. Must schedule and complete appointment for further refills. 90 tablet 1 1 Active metFORMIN ER 500 MG 24 hr tabletIndicatio ns:Type 2 diabetes mellitus with diabetic polyneuropathy, without long-term current use of insulin ([facility]) TAKE 2 TABLETS(1000 MG) BY MOUTH DAILY WITH SUPPER 180 tablet 1 1 Active linaGLIPtin (TRADJENTA) 5 MG tabletIndicatio ns:Type 2 diabetes mellitus with diabetic polyneuropathy, without long-term current use of insulin ([facility]) TAKE 1 TABLET(5 MG) BY MOUTH DAILY. FOLLOW-UP APPOINTMENT 90 tablet 1 1 Active Active Problems Problem Noted Date Diagnosed Date Depression with anxiety 12/20/2017 Acquired hypothyroidism 08/19/2017 Diabetic peripheral neuropathy ([facility]) 06/17/2015 Overview (01/25/2019): Transitioned From: Burning sensation in lower extremity Type 2 diabetes mellitus wit h diabetic polyneuropathy, without long-term current use of insulin ([facility]) 08/07/2013 Family History Medical History [...] (01/23/2019) HGB A1C 6.[address] [place] 01/23/2019 us Jihan Juárez MD LABORATORY Final Result [facility] [place] [id number] [facility] [place] [address], [place] [phone] from Last 3 Months or Most Recently Relevant to Health Maintenance Insurance MEDICARE MEDICAID Care Teams Customer Service Correspondence Clerk Relationship Specialty Start Date End Date Aiden Harkins MD [address] [place] [address] PCP - General INTERNAL MEDICINE 01/23/19
--- OUTSIDE RECORDS SUMMARY | 2024-12-25 15:40 | XMS_ITS | Clinical Summary ---
Author Organization [facility] Caridad Wilhelm Address [address] [place] [address] Care Team Providers Care Social Media Director Name Role Phone Aiden Harkins MD Primary Care Provider [phone] Allergies Active Allergy Reactions Criticality Noted Date [...] on file Legal Sex Female 10:59 AM MICA PLATE LAYER HAND Gender Identity Not on file Sexual Orientation [...] cm (5' 6 ) 11/22/2022 3:00 PM MICA PLATE LAYER HAND Body Mass Index 34.54 11/22/2022 3:00 PM MICA PLATE LAYER HAND Plan of Treatment Health Maintenance Due Date Last Done Comments PNEUMOCOCCAL VACCINE 0-49 YE ARS (1 of 2 - PCV) 2002 DIABETES ANNUAL FOOT EXAM 2014 DIABETES ANNUAL RETINAL EXAM 2014 DIABETES MICROALBUMIN ANNUAL SCREEN 2014 LDL CHOLESTEROL ANNUAL 2014 DTAP/TDAP/TD VACCINES (1 - Tdap) 2015 HEPATITIS B VACCINES (1 of 3 - 19+ 3-dose series) 2015 PAP SMEAR 2017 DIABETES HBA1C Q 6 MONTHS 07/25/2019 01/23/2019 INFLUENZA VACCINE (#1) 2024 HPV VACCINES Aged Out No longer eligi ble based on patient's age to complete this topic Insurance MEDICAID [place] MED[place]ARE PART A AND B Care Teams Social Media Director Relationship Specialty Start Date End Date Aiden Harkins MD [address] [place] [address] PCP - General Internal Medicine 11/22/22
[2024-12-27 18:48] LABS: Red Blood Cell Folate 680 ng/mL RBC (>280)
== END 2024-12-25 13:29 | disposition home or self-care (01) ==
LOC: CHSLAB 13:30
PROVIDERS: PCP Internal Medicine; Visit Provider Internal Medicine
DX: D64.9 Anemia, unspecified (principal)
CPT/HCPCS: 36415; 82728; 82747; 83540; 83550; 83921; 85025; 85046

== ENCOUNTER 2025-03-19 10:22 | Outpatient (CLI) | payer MEDICARE, SELFPAY ==
[2025-03-19 10:37] LABS: Hematocrit 41.9 % (35.0-49.0); Hemoglobin 13.2 g/dL (12.0-15.0); Mean Corpuscular HGB Conc 31.5 g/dL (32-36); Mean Corpuscular Hemoglobin 27.3 pg (27.0-31.0); Mean Corpuscular Volume 86.6 fL (78.0-102.0); Mean Platelet Volume 9.2 fl (9.2-11.8); Platelet Count Result 379 K/mm3 (150-420); Red Blood Count 4.84 M/mm3 (4.20-5.40); Red Cell Distribution Width 12.1 % (11.6-14.4); White Blood Count 6.7 K/mm3 (4.8-10.8)
[2025-03-19 10:49] LABS: Creatinine Urine > 346.5 mg/dL
[2025-03-19 10:55] LABS: Microalbumin Urine Random 95.7 mg/L (0-16.7)
[2025-03-19 11:05] LABS: Alanine Aminotransferase 10 U/L (6-35); Albumin Level 4.1 g/dL (3.5-5.1); Alkaline Phosphatase 90 U/L (38-126); Anion Gap 5 mmol/L (4-12); Aspartate Amino Transferase 23 U/L (14-36); Bilirubin,Total 0.3 mg/dL (0.2-1.3); Blood Urea Nitrogen 13 mg/dL (7-17); Calcium 8.8 mg/dL (8.4-10.2); Carbon Dioxide 34 mmol/L (22-30); Chloride 102 mmol/L (98-107); Estimated Glomerular Filt Rate > 60; Glucose 100 mg/dL (65-110); Osmolality Calculated 292 mOsm/kg (285-295); Potassium 3.4 mmol/L (3.4-5.0); Sodium 141 mmol/L (137-145); Total Protein 7.8 g/dL (6.3-8.2)
--- OUTSIDE RECORDS SUMMARY | 2025-03-19 11:35 | XMS_ITS | Clinical Summary ---
Author Organization [facility] Address [facility] [place] [address] Care Team Providers Care Easement Man Name Role Phone Aiden Harkins MD Primary Care Provider [phone] Allergies Active Allergy Reactions Criticality Noted Date Comments Amoxicillin Unknown 08/09/2013 Medications topiramate (TOPAMAX) 100 MG tablet Take 1 tablet by mouth nightly at bedtime. Active Norgestimate-Et hinyl Estradiol (TRINESSA LO) 0.18/0.215/0.25 MG-25 MCG tablet TriNessa Lo 0.18/0.215/0.25 MG-25 MCG [id number] jhonny 7 Active levothyroxine 25 MCG tablet [...] polyneuropathy, without long-term current use of insulin ([facility]) USE TO TEST BLOOD SUGARS AT BEDTIME 100 strip 3 0 Active pioglitazone 15 MG tabletIndicatio ns:Type 2 diabetes mellitus with diabetic polyneuropathy, without long-term current use of insulin ([facility]) TAKE 1 TABLET(15 MG) BY MOUTH DAILY. Must schedule and complete appointment for further refills. 90 tablet 1 1 Active metFORMIN ER 500 MG 24 hr tabletIndicatio ns:Type 2 diabetes mellitus with diabetic polyneuropathy, without long-term current use of insulin ([facility]) TAKE 2 TABLETS(1000 MG) BY MOUTH DAILY WITH SUPPER 180 tablet 1 1 Active linaGLIPtin (TRADJENTA) 5 MG tabletIndicatio ns:Type 2 diabetes mellitus with diabetic polyneuropathy, without long-term current use of insulin ([facility]) TAKE 1 TABLET(5 MG) BY MOUTH DAILY. FOLLOW-UP APPOINTMENT 90 tablet 1 1 Active Active Problems Problem Noted Date Diagnosed Date Depression with anxiety 12/20/2017 Acquired hypothyroidism 08/19/2017 Diabetic peripheral neuropathy ([facility]) 06/17/2015 Overview (01/25/2019): Transitioned From: Burning sensation in lower extremity Type 2 diabetes mellitus wit h diabetic polyneuropathy, without long-term current use of insulin ([facility]) 08/07/2013 Family History Medical History [...] 3:46 PM CDT Height 165.1 cm (5' 5) 01/23/2019 3:46 PM CDT Body Mass Index 35.61 01/23/2019 3:46 PM CDT Plan of Treatment Health Maintenance Due Date Last Done Comments Cervical Cancer Screening Pap Smear (Age 21 to 29) Every 3 Years 1996 Cervical Cancer Screening 1996 Kidney Health Evaluation 1996 Lipid Panel 1996 Annual Physical 1999 Diabetes: Retinopathy Eye Exam 2014 Hepatitis C 2014 DTaP, Tdap and Td Vaccines (1 - Tdap) 2015 Hepatitis B Vaccines (1 of 3 - 19+ 3-dose series) 2015 Pneumococcal Vaccine: Pediatrics (0 to 5 Years) and At-Risk Patients (6 to 49 Years) (1 of 2 - PCV) 2015 Hemoglobin A1C 07/25/2019 01/23/2019, 07/04, 03/24/2018, Additional history exists COVID-19 Vaccine (2023- season) 2024 HPV Vaccines Aged Out No longer [...] (01/23/2019) HGB A1C 6.[address] [place] 01/23/2019 us Jihan Juárez MD LABORATORY Final Result [facility] [address] [place] [id number] [place] [address], from Last 3 Months or Most Recently Relevant to Health Maintenance Insurance MEDICARE MEDICAID Care Teams Easement Man Relationship Specialty Start Date End Date Aiden Harkins MD [address] [place] [address] PCP - General INTERNAL MEDICINE 01/23/19
--- OUTSIDE RECORDS SUMMARY | 2025-03-19 11:35 | XMS_ITS | Clinical Summary ---
Author Organization [facility] Caridad Wilhelm Address [address] [place] [address] Care Team Providers Care Puttier Name Role Phone Aiden Harkins MD Primary Care Provider [phone] Allergies Active Allergy Reactions Criticality Noted Date [...] on file Legal Sex Female 10:59 AM SUPERVISOR ELECTROLYTIC TINNING Gender Identity Not on file Sexual Orientation [...] 2:32 PM CDT Height 167.6 cm (5' 6) 11/22/2022 3:00 PM SUPERVISOR ELECTROLYTIC TINNING Body Mass Index 34.54 11/22/2022 3:00 PM SUPERVISOR ELECTROLYTIC TINNING Plan of Treatment Health Maintenance Due Date Last Done Comments DIABETES ANNUAL FOOT EXAM 2014 DIABETES ANNUAL RETINAL EXAM 2014 DIABETES MICROALBUMIN ANNUAL SCREEN 2014 LDL CHOLESTEROL ANNUAL 2014 DTAP/TDAP/TD VACCINES (1 - Tdap) 2015 HEPATITIS B VACCINES (1 of 3 - 19+ 3-dose series) 2015 CERVICAL CANCER SCREENING 2017 HPV/Cotest (21-29) 2017 PAP SMEAR 2017 DIABETES HBA1C Q 6 MONTHS 07/25/2019 01/23/2019 INFLUENZA VACCINE (#1) 2024 HPV VACCINES Aged Out No longer eligi ble based on patient's age to complete this topic Insurance MEDICAID [place] MEDICARE PART A AND B Care Teams Puttier Relationship Specialty Start Date End Date Aiden Harkins MD [address] [place] [address] PCP - General Internal Medicine 11/22/22
--- OUTSIDE RECORDS SUMMARY | 2025-03-19 11:35 | XMS_ITS | Encounter Summary ---
Author Organization [facility] Address [facility] [place] [address] Care Team Providers Care Glue Size Machine Operator Name Role Phone Aiden Harkins MD Primary Care Provider [phone] Encounter Details Date Type Department Care Team (Late st Contact Info) Description 03/10/2019 Abstract SFL CONVERSION [address] [place] [address] , Generic Conversion, Social History Tobacco Use [...] on filedocumented in this encounter Care Teams Glue Size Machine Operator Relationship Specialty Start Date End Date Aiden Harkins MD [address] [place] [address] PCP - General INTERNAL MEDICINE 01/23/19 documented as of this encounter
[2025-03-19 13:55] LABS: Hemoglobin A1C 5.6 % (<5.7)
== END 2025-03-19 10:23 | disposition home or self-care (01) ==
LOC: CHSLAB 10:24
PROVIDERS: PCP Internal Medicine; Visit Provider Internal Medicine
DX: E11.65 Type 2 diabetes mellitus with hyperglycemia (principal); E03.9 Hypothyroidism, unspecified
CPT/HCPCS: 36415; 80053; 82043; 83036; 84443; 85027

== ENCOUNTER 2025-05-02 15:22 | Outpatient (CLI) | payer MEDICARE, MEDICAID, SELFPAY ==
--- OUTSIDE RECORDS SUMMARY | 2025-05-02 15:28 | XMS_ITS | Clinical Summary ---
Author Organization [facility] Address [facility] [place] [address] Care Team Providers Care Isotope Technician Name Role Phone Aiden Harkins MD Primary Care Provider [phone] Allergies Active Allergy Reactions Criticality Noted Date Comments Amoxicillin Unknown 08/09/2013 Medications topiramate (TOPAMAX) 100 MG tablet Take 1 tablet by mouth nightly at bedtime. Active Norgestimate-Et hinyl Estradiol (TRINESSA LO) 0.18/0.215/0.25 MG-25 MCG tablet TriNessa Lo 0.18/0.215/0.25 MG-25 MCG [id number] jhonny 7 Active levothyroxine 25 MCG tablet [...] polyneuropathy, without long-term current use of insulin ([facility]) USE TO TEST BLOOD SUGARS AT BEDTIME 100 strip 3 0 Active pioglitazone 15 MG tabletIndicatio ns:Type 2 diabetes mellitus with diabetic polyneuropathy, without long-term current use of insulin ([facility]) TAKE 1 TABLET(15 MG) BY MOUTH DAILY. Must schedule and complete appointment for further refills. 90 tablet 1 1 Active metFORMIN ER 500 MG 24 hr tabletIndicatio ns:Type 2 diabetes mellitus with diabetic polyneuropathy, without long-term current use of insulin ([facility]) TAKE 2 TABLETS(1000 MG) BY MOUTH DAILY WITH SUPPER 180 tablet 1 1 Active linaGLIPtin (TRADJENTA) 5 MG tabletIndicatio ns:Type 2 diabetes mellitus with diabetic polyneuropathy, without long-term current use of insulin ([facility]) TAKE 1 TABLET(5 MG) BY MOUTH DAILY. FOLLOW-UP APPOINTMENT 90 tablet 1 1 Active Active Problems Problem Noted Date Diagnosed Date Depression with anxiety 12/20/2017 Acquired hypothyroidism 08/19/2017 Diabetic peripheral neuropathy ([facility]) 06/17/2015 Overview (01/25/2019): Transitioned From: Burning sensation in lower extremity Type 2 diabetes mellitus wit h diabetic polyneuropathy, without long-term current use of insulin ([facility]) 08/07/2013 Family History Medical History Relation Comments [...] 07/25/2019 01/23/2019, 07/04, 03/24/2018, Additional history exists HPV Vaccines (1 - 3-dose SCDM series) 2023 COVID-19 Vaccine ( season) 2024 Meningococcal B Vaccine Aged Out No l [...] (01/23/2019) HGB A1C 6.[address] [place] 01/23/2019 us Jihan Juárez MD LABORATORY Final Result [facility] [place] [address] [place] [address], from Last 3 Months or Most Recently Relevant to Health Maintenance Insurance MEDICARE MEDICAID Care Teams Isotope Technician Relationship Specialty Start Date End Date Aiden Harkins MD [address] [place] [address] PCP - General INTERNAL MEDICINE 01/23/19
--- OUTSIDE RECORDS SUMMARY | 2025-05-02 15:28 | XMS_ITS | Clinical Summary ---
Author Organization [facility] Caridad Wilhelm Address [address] [place] [address] Care Team Providers Care Mat Packer Name Role Phone Aiden Harkins MD Primary Care Provider [phone] Allergies Active Allergy Reactions Criticality Noted Date [...] on file Legal Sex Female 10:59 AM CHARGE ENTRY CLERK Gender Identity Not on file Sexual Orientation [...] 167.6 cm (5' 6) 11/22/2022 3:00 PM CHARGE ENTRY CLERK Body Mass Index 34.54 11/22/2022 3:00 PM CHARGE ENTRY CLERK Plan of Treatment Health Maintenance Due Date Last Done Comments HPV VACCINES (1 - 3-dose series) 2011 DIABETES ANNUAL FOOT EXAM 2014 DIABETES ANNUAL RETINAL EXAM 2014 DIABETES MICROALBUMIN ANNUAL SCREEN 2014 LDL CHOLESTEROL ANNUAL 2014 DTAP/TDAP/TD VACCINES (1 - Tdap) 2015 HEPATITIS B VACCINES (1 of 3 - 19+ 3-dose series) 07/03 CERVICAL CANCER SCREENING 2017 HPV/Cotest (21-29) 2017 PAP SMEAR 2017 DIABETES HBA1C Q 6 MONTHS 07/25/2019 01/23/2019 INFLUENZA VACCINE (#1) 2025 Insurance MEDICAID [place] MEDICARE PART A AND B Care Teams Mat Packer Relationship Specialty Start Date End Date Aiden Harkins MD [address] [place] [address] PCP - General Internal Medicine 11/22/22
--- OUTSIDE RECORDS SUMMARY | 2025-05-02 15:28 | XMS_ITS | Encounter Summary ---
Author Organization [facility] Address [facility] [place] [address] Care Team Providers Care Cnc Wood Lathe Operator Name Role Phone Aiden Harkins MD Primary Care Provider [phone] Encounter Details Date Type Department Care Team (Late st Contact Info) Description 03/10/2019 Abstract SFL CONVERSION [address] [place] [address] , Generic Conversion, Social History Tobacco Use [...] on filedocumented in this encounter Care Teams Cnc Wood Lathe Operator Relationship Specialty Start Date End Date Aiden Harkins MD [address] [place] [address] PCP - General INTERNAL MEDICINE 01/23/19 documented as of this encounter
--- OUTSIDE RECORDS SUMMARY | 2025-05-02 15:28 | XMS_ITS | Encounter Summary ---
Author Organization [facility] Address [facility] [place] [address] Care Team Providers Care Jetting Machine Operator Name Role Phone Aiden Harkins MD Primary Care Provider [phone] Encounter Details Date Type Department Care Team (Late st Contact Info) Description 12/17/2017 Abstract SJS CONVERSION [address] [place] [address] , Generic MD Compa Social History Tobacco [...] on filedocumented in this encounter Care Teams Jetting Machine Operator Relationship Specialty Start Date End Date Aiden Harkins MD [address] [place] [address] PCP - General INTERNAL MEDICINE 01/23/19 documented as of this encounter
[2025-05-02 15:47] LABS: Hematocrit 40.7 % (35.0-49.0); Hemoglobin 12.9 g/dL (12.0-15.0); Mean Corpuscular HGB Conc 31.7 g/dL (32-36); Mean Corpuscular Hemoglobin 26.8 pg (27.0-31.0); Mean Corpuscular Volume 84.6 fL (78.0-102.0); Platelet Count Result 353 K/mm3 (150-420); Red Blood Count 4.81 M/mm3 (4.20-5.40); White Blood Count 6.2 K/mm3 (4.8-10.8)
[2025-05-02 16:10] LABS: Alanine Aminotransferase 9 U/L (6-35); Albumin Level 4.5 g/dL (3.5-5.1); Alkaline Phosphatase 94 U/L (38-126); Anion Gap 6 mmol/L (4-12); Aspartate Amino Transferase 22 U/L (14-36); Bilirubin,Total 0.4 mg/dL (0.2-1.3); Blood Urea Nitrogen 15 mg/dL (7-17); Calcium 8.9 mg/dL (8.4-10.2); Carbon Dioxide 30 mmol/L (22-30); Chloride 101 mmol/L (98-107); Estimated Glomerular Filt Rate > 60; Glucose 100 mg/dL (65-110); Osmolality Calculated 284 mOsm/kg (285-295); Potassium 4.5 mmol/L (3.4-5.0); Sodium 137 mmol/L (137-145); Total Protein 8.6 g/dL (6.3-8.2)
== END 2025-05-02 15:23 | disposition home or self-care (01) ==
LOC: CHSLAB 15:25
PROVIDERS: PCP Internal Medicine; Visit Provider Nurse Practitioner Family
DX: E11.9 Type 2 diabetes mellitus without complications (principal)
CPT/HCPCS: 36415; 80053; 85027

== ENCOUNTER 2025-05-23 16:08 | Outpatient (CLI) | payer MEDICARE, MEDICAID, SELFPAY ==
--- OUTSIDE RECORDS SUMMARY | 2025-05-23 16:11 | XMS_ITS | Encounter Summary ---
Author Organization [facility] Address [facility] [place] [address] Care Team Providers Care General Internist Name Role Phone Aiden Harkins MD Primary Care Provider [phone] Encounter Details Date Type Department Care Team (Late st Contact Info) Description 12/17/2017 Abstract SJS CONVERSION [address] [place] [address] , Generic MD Compa Social History Tobacco [...] on filedocumented in this encounter Care Teams General Internist Relationship Specialty Start Date End Date Aiden Harkins MD [address] [place] [address] PCP - General INTERNAL MEDICINE 01/23/19 documented as of this encounter
--- OUTSIDE RECORDS SUMMARY | 2025-05-23 16:11 | XMS_ITS | Encounter Summary ---
Author Organization [facility] Address [facility] [place] [address] Care Team Providers Care Technical Cable Jointer Name Role Phone Aiden Harkins MD Primary Care Provider [phone] Encounter Details Date Type Department Care Team (Late st Contact Info) Description 03/10/2019 Abstract SFL CONVERSION [address] [place] [address] , Generic Conversion, Social History Tobacco Use [...] on filedocumented in this encounter Care Teams Technical Cable Jointer Relationship Specialty Start Date End Date Aiden Harkins MD [address] [place] [address] PCP - General INTERNAL MEDICINE 01/23/19 documented as of this encounter
--- OUTSIDE RECORDS SUMMARY | 2025-05-23 16:12 | XMS_ITS | Clinical Summary ---
Author Organization [facility] Address [facility] [place] [address] Care Team Providers Care Lead Generation Specialist Name Role Phone Aiden Harkins MD Primary Care Provider [phone] Allergies Active Allergy Reactions Criticality Noted Date Comments Amoxicillin Unknown 08/09/2013 Medications topiramate (TOPAMAX) 100 MG tablet Take 1 tablet by mouth nightly at bedtime. Active Norgestimate-Et hinyl Estradiol (TRINESSA LO) 0.18/0.215/0.25 MG-25 MCG tablet TriNessa Lo 0.18/0.215/0.25 MG-25 MCG [id number] jhonny 7 Active levothyroxine 25 MCG tablet [...] use of insulin ([facility]) USE TO TEST BLOOD SUGARS AT BEDTIME 100 strip 3 0 Active pioglitazone 15 MG tabletIndicatio ns:Type 2 diabetes mellitus with diabetic polyneuropathy, without long-term current use of insulin ([facility]) TAKE 1 TABLET(15 MG) BY MOUTH DAILY. Must schedule and complete appointment for further refills. 90 tablet 1 1 Active metFORMIN ER 500 MG 24 hr tabletIndicatio ns:Type 2 diabetes mellitus with diabetic polyneuropathy, without long-term current use of insulin ([facility]) TAKE 2 TABLETS(1000 MG) BY MOUTH DAILY WITH SUPPER 180 tablet 1 1 Active linaGLIPtin (TRADJENTA) 5 MG tabletIndicatio ns:Type 2 diabetes mellitus with diabetic polyneuropathy, without long-term current use of insulin ([facility]) TAKE 1 TABLET(5 MG) BY MOUTH DAILY. FOLLOW-UP APPOINTMENT 90 tablet 1 1 Active Active Problems Problem Noted Date Diagnosed Date Depression with anxiety 12/20/2017 Acquired hypothyroidism 08/19/2017 Diabetic peripheral neuropathy ([facility]) 06/17/2015 Overview (01/25/2019): Transitioned From: Burning sensation in lower extremity Type 2 diabetes mellitus wit h diabetic polyneuropathy, without long-term current use of insulin ([facility]) 08/07/2013 Family History Medical History [...] (01/23/2019) HGB A1C 6.[address] [place] 01/23/2019 us Jihan Juárez MD LABORATORY Final Result [facility] [place] [address] [place] [address], from Last 3 Months or Most Recently Relevant to Health Maintenance Insurance MEDICARE MEDICAID Care Teams Lead Generation Specialist Relationship Specialty Start Date End Date Aiden Harkins MD [address] [place] [address] PCP - General INTERNAL MEDICINE 01/23/19
[2025-05-23 16:51] LABS: Hematocrit 39.2 % (37.0-47.0); Hemoglobin 12.5 g/dL (12.0-15.0); Mean Corpuscular HGB Conc 31.9 g/dl (32-36); Mean Corpuscular Hemoglobin 27.1 pg (26-34); Mean Corpuscular Volume 84.8 fl (80-100); Platelet Count Result 326 k/mm3 (150-375); Red Blood Count 4.62 M/mm3 (4.2-5.4); White Blood Count 6.0 K/mm3 (4.5-10.0)
[2025-05-23 17:07] LABS: Iron 39 ug/dL (37-170)
[2025-05-23 17:10] LABS: CRP 2.4 mg/dL (<1.0)
[2025-05-23 17:16] LABS: Percent Iron Saturation 12 % (20-50)
[2025-05-23 17:50] LABS: Ferritin 29.10 ng/mL (6.24-137)
[2025-05-23 18:19] LABS: Vitamin B12 298.0 pg/mL (239-931)
== END 2025-05-23 16:09 | disposition home or self-care (01) ==
PROVIDERS: PCP Internal Medicine; Visit Provider Nurse Practitioner
DX: K51.90 Ulcerative colitis, unspecified, without complications (principal)
CPT/HCPCS: 36415; 82607; 82728; 82746; 83540; 83550; 85027; 85652; 86140

== ENCOUNTER 2025-06-20 14:30 | Outpatient (CLI) | payer MEDICARE, MEDICAID, SELFPAY ==
--- OUTSIDE RECORDS SUMMARY | 2025-06-20 14:34 | XMS_ITS | Encounter Summary ---
Author Organization [facility] Address [facility] [place] [address] Care Team Providers Care Resident Care Manager Rn Name Role Phone Aiden Harkins MD Primary Care Provider Encounter Details Date Type Department Care Team (Late st Contact Info) Description 03/10/2019 Abstract SFL CONVERSION [address] [place] [address] , Generic Conversion, Social History Tobacco Use [...] on filedocumented in this encounter Care Teams Resident Care Manager Rn Relationship Specialty Start Date End Date Aiden Harkins MD [address] [place] [address] PCP - General INTERNAL MEDICINE 01/23/19 documented as of this encounter
--- OUTSIDE RECORDS SUMMARY | 2025-06-20 14:34 | XMS_ITS | Clinical Summary ---
Author Organization [facility] Address [facility] [place] [address] Care Team Providers Care Furniture Repair Technician Name Role Phone Aiden Harkins MD Primary Care Provider [phone] Allergies Active Allergy Reactions Criticality Noted Date Comments Amoxicillin Unknown 08/09/2013 Medications topiramate (TOPAMAX) 100 MG tablet Take 1 tablet by mouth nightly at bedtime. Active Norgestimate-Et hinyl Estradiol (TRINESSA LO) 0.18/0.215/0.25 MG-25 MCG tablet TriNessa Lo 0.18/0.215/0.25 MG-25 MCG [id number] jhonny 7 Active levothyroxine 25 MCG tablet [...] polyneuropathy, without long-term current use of insulin ([facility]) USE TO TEST BLOOD SUGARS AT BEDTIME 100 strip 3 0 Active pioglitazone 15 MG tabletIndicatio ns:Type 2 diabetes mellitus with diabetic polyneuropathy, without long-term current use of insulin ([facility]) TAKE 1 TABLET(15 MG) BY MOUTH DAILY. Must schedule and complete appointment for further refills. 90 tablet 1 1 Active metFORMIN ER 500 MG 24 hr tabletIndicatio ns:Type 2 diabetes mellitus with diabetic polyneuropathy, without long-term current use of insulin ([facility]) TAKE 2 TABLETS(1000 MG) BY MOUTH DAILY WITH SUPPER 180 tablet 1 1 Active linaGLIPtin (TRADJENTA) 5 MG tabletIndicatio ns:Type 2 diabetes mellitus with diabetic polyneuropathy, without long-term current use of insulin ([facility]) TAKE 1 TABLET(5 MG) BY MOUTH DAILY. FOLLOW-UP APPOINTMENT 90 tablet 1 1 Active Active Problems Problem Noted Date Diagnosed Date Depression with anxiety 12/20/2017 Acquired hypothyroidism 08/19/2017 Diabetic peripheral neuropathy ([facility]) 06/17/2015 Overview (01/25/2019): Transitioned From: Burning sensation in lower extremity Type 2 diabetes mellitus wit h diabetic polyneuropathy, without long-term current use of insulin ([facility]) 08/07/2013 Family History Medical History Relation Comments [...] SCDM series) 2023 COVID-19 Vaccine ( season) 2025 Meningococcal B Vaccine Aged Out No l [...] (01/23/2019) HGB A1C 6.[address] [place] 01/23/2019 us Jihan Juárez MD LABORATORY Final Result [facility] [address] [place] [address] [place] [address], from Last 3 Months or Most Recently Relevant to Health Maintenance Insurance MEDICARE MEDICAID Care Teams Furniture Repair Technician Relationship Specialty Start Date End Date Aiden Harkins MD [address] [place] [address] PCP - General INTERNAL MEDICINE 01/23/19
--- OUTSIDE RECORDS SUMMARY | 2025-06-20 14:34 | XMS_ITS | Clinical Summary ---
Author Organization [facility] Caridad Wilhelm Address [address] [place] [address] Care Team Providers Care Baseball Inspector And Repairer Name Role Phone Aiden Harkins MD Primary Care Provider [phone] Allergies Active Allergy Reactions Criticality Noted Date [...] on file Legal Sex Female 10:59 AM TANNERY WORKER Gender Identity Not on file Sexual Orientation [...] 167.6 cm (5' 6) 11/22/2022 3:00 PM TANNERY WORKER Body Mass Index 34.54 11/22/2022 3:00 PM TANNERY WORKER Plan of Treatment Health Maintenance Due Date Last Done Comments DIABETES ANNUAL FOOT EXAM 2014 DIABETES ANNUAL RETINAL EXAM 2014 DIABETES MICROALBUMIN ANNUAL SCREEN 2014 LDL CHOLESTEROL ANNUAL 2014 DTAP/TDAP/TD VACCINES (1 - Tdap) 2015 HEPATITIS B VACCINES (1 of 3 - 19+ 3-dose series) 07/03 CERVICAL CANCER SCREENING 2017 HPV/Cotest (21-29) 2017 PAP SMEAR 2017 DIABETES HBA1C Q 6 MONTHS 07/25/2019 01/23/2019 HPV VACCINES (1 - 3-dose SCDM series) 2023 INFLUENZA VACCINE (#1) 2025 Insurance MEDICAID [place] MEDICARE PART A AND B Care Teams Baseball Inspector And Repairer Relationship Specialty Start Date End Date Aiden Harkins MD [address] [place] [address] PCP - General Internal Medicine 11/22/22
--- OUTSIDE RECORDS SUMMARY | 2025-06-20 14:34 | XMS_ITS | Encounter Summary ---
Author Organization [facility] Address [facility] [place] [address] Care Team Providers Care Blood Bank Manager Name Role Phone Aiden Harkins MD Primary Care Provider [phone] Encounter Details Date Type Department Care Team (Late st Contact Info) Description 12/17/2017 Abstract [facility] CONVERSION [address] [place] [address] , Generic MD Compa Social History Tobacco [...] on filedocumented in this encounter Care Teams Blood Bank Manager Relationship Specialty Start Date End Date Aiden Harkins MD [address] [place] [address] PCP - General INTERNAL MEDICINE 01/23/19 documented as of this encounter
[2025-06-20 14:50] LABS: Hematocrit 37.1 % (35.0-49.0); Hemoglobin 11.8 g/dL (12.0-15.0); Mean Corpuscular HGB Conc 31.8 g/dL (32-36); Mean Corpuscular Hemoglobin 27.3 pg (27.0-31.0); Mean Corpuscular Volume 85.9 fL (78.0-102.0); Platelet Count Result 341 K/mm3 (150-420); Red Blood Count 4.32 M/mm3 (4.20-5.40); White Blood Count 6.3 K/mm3 (4.8-10.8)
[2025-06-20 15:05] LABS: Hemoglobin A1C 5.7 % (<5.7)
[2025-06-20 15:06] LABS: MALB Creatinine Ratio 16.2 mg/g (0-30)
[2025-06-20 15:12] LABS: Alanine Aminotransferase 10 U/L (6-35); Albumin Level 4.1 g/dL (3.5-5.1); Alkaline Phosphatase 110 U/L (38-126); Anion Gap 13 mmol/L (4-12); Aspartate Amino Transferase 22 U/L (14-36); Bilirubin,Total 0.4 mg/dL (0.2-1.3); Blood Urea Nitrogen 12 mg/dL (7-17); Calcium 8.8 mg/dL (8.4-10.2); Carbon Dioxide 26 mmol/L (22-30); Chloride 102 mmol/L (98-107); Estimated Glomerular Filt Rate > 60; Glucose 195 mg/dL (65-110); Osmolality Calculated 296 mOsm/kg (285-295); Potassium 3.8 mmol/L (3.4-5.0); Sodium 141 mmol/L (137-145); Total Protein 9.3 g/dL (6.3-8.2)
[2025-06-20 15:43] LABS: Thyroid Stimulating Hormone 5.010 uIU/mL (0.465-4.680)
== END 2025-06-20 14:31 | disposition home or self-care (01) ==
LOC: CHSLAB 14:32
PROVIDERS: PCP Internal Medicine; Visit Provider Internal Medicine
DX: E11.65 Type 2 diabetes mellitus with hyperglycemia (principal); E03.9 Hypothyroidism, unspecified
CPT/HCPCS: 36415; 80053; 82043; 83036; 84443; 85027

== ENCOUNTER 2025-09-05 14:38 | Outpatient (CLI) | payer MEDICARE, MEDICAID, SELFPAY ==
[2025-09-05 15:14] LABS: Strep Group A RT-PCR NOT DETECTED (Negative)
[2025-09-05 15:25] LABS: Influenza A QL RT-PCR Negative (Negative); Influenza B QL RT-PCR Negative (Negative); SARS-CoV-2 RNA PCR Negative (Negative)
== END 2025-09-05 14:39 | disposition home or self-care (01) ==
PROVIDERS: PCP Internal Medicine; Visit Provider Nurse Practitioner Family
DX: R50.9 Fever, unspecified (principal)
CPT/HCPCS: 87636; 87651

== ENCOUNTER 2025-09-20 13:04 | Outpatient (CLI) | payer MEDICARE, MEDICAID, SELFPAY ==
--- OUTSIDE RECORDS SUMMARY | 2025-09-20 13:09 | XMS_ITS | Clinical Summary ---
Author Organization [facility] Caridad Wilhelm Address [address] [place] [address] Care Team Providers Care Bank President Name Role Phone Aiden Harkins MD Primary Care Provider [phone] Allergies Active Allergy Reactions Criticality Noted Date [...] on file Legal Sex Female 10:59 AM CLINICAL MENTAL HEALTH COUNSELOR Gender Identity Not on file Sexual Orientation [...] 167.6 cm (5' 6) 11/22/2022 3:00 PM CLINICAL MENTAL HEALTH COUNSELOR Body Mass Index 34.54 11/22/2022 3:00 PM CLINICAL MENTAL HEALTH COUNSELOR Plan of Treatment Health Maintenance Due Date [...] MONTHS 07/25/2019 01/23/2019 INFLUENZA VACCINE (#1) 2025 HPV VACCINES (No Doses Required) Completed Insurance MEDICAID [place] MEDICARE PART A AND B Care Teams Bank President Relationship Specialty Start Date End Date Aiden Harkins MD [address] [place] [phone] PCP - General Internal Medicine 11/22/22
--- OUTSIDE RECORDS SUMMARY | 2025-09-20 13:09 | XMS_ITS | Clinical Summary ---
Author Organization [facility] Address [facility] [place] [address] Care Team Providers Care Line Out Man Name Role Phone Aiden Harkins MD Primary Care Provider [phone] Allergies Active Allergy Reactions Criticality Noted Date Comments Amoxicillin Unknown 08/09/2013 Medications topiramate (TOPAMAX) 100 MG tablet Take 1 tablet by mouth nightly at bedtime. Active Norgestimate-Et hinyl Estradiol (TRINESSA LO) 0.18/0.215/0.25 MG-25 MCG tablet TriNessa Lo 0.18/0.215/0.25 MG-25 MCG [id number] jhonny 7 Active levothyroxine 25 MCG tablet [...] use of insulin ([facility]) USE TO TEST BLOOD SUGARS AT BEDTIME 100 strip 3 0 Active pioglitazone 15 MG tabletIndicatio ns:Type 2 diabetes mellitus with diabetic polyneuropathy, without long-term current use of insulin ([facility]) TAKE 1 TABLET(15 MG) BY MOUTH DAILY. Must schedule and complete appointment for further refills. 90 tablet 1 1 Active metFORMIN ER 500 MG 24 hr tabletIndicatio ns:Type 2 diabetes mellitus with diabetic polyneuropathy, without long-term current use of insulin ([facility]) TAKE 2 TABLETS(1000 MG) BY MOUTH DAILY WITH SUPPER 180 tablet 1 1 Active linaGLIPtin (TRADJENTA) 5 MG tabletIndicatio ns:Type 2 diabetes mellitus with diabetic polyneuropathy, without long-term current use of insulin ([facility]) TAKE 1 TABLET(5 MG) BY MOUTH DAILY. FOLLOW-UP APPOINTMENT 90 tablet 1 1 Active Active Problems Problem Noted Date Diagnosed Date Depression with anxiety 12/20/2017 Acquired hypothyroidism 08/19/2017 Diabetic peripheral neuropathy 06/17/2015 Overview (01/25/2019): Transitioned From: Burning sensation in lower extremity Type 2 diabetes mellitus wit h diabetic polyneuropathy, without long-term current use of insulin 08/07/2013 Family History Medical History Relation Comments [...] - 3-dose SCDM series) 2023 COVID-19 Vaccine (2024- season) 2025 Influenza Adult (#1) 2025 Hepatitis A Vaccines Aged Out No long er eligible based on patient's age to complete [...] (01/23/2019) HGB A1C 6.[address] [place] 01/23/2019 us Jihan Juárez MD LABORATORY Final Result [facility] [address] [place] [id number] [address] [phone] from Last 3 Months or Most Recently Relevant to Health Maintenance Insurance MEDICARE MEDICAID Care Teams Line Out Man Relationship Specialty Start Date End Date Aiden Harkins MD [address] [place] [phone] PCP - General INTERNAL MEDICINE 01/23/19
--- OUTSIDE RECORDS SUMMARY | 2025-09-20 13:09 | XMS_ITS | Encounter Summary ---
Author Organization [facility] Address [facility] [place] [address] Care Team Providers Care Packing Room Supervisor Name Role Phone Aiden Harkins MD Primary Care Provider [phone] Encounter Details Date Type Department Care Team (Late st Contact Info) Description 12/17/2017 Abstract [facility] CONVERSION [address] [place] [address] , Generic MD Compa Social History Tobacco [...] on filedocumented in this encounter Care Teams Packing Room Supervisor Relationship Specialty Start Date End Date Aiden Harkins MD [address] [place] [phone] PCP - General INTERNAL MEDICINE 01/23/19 documented as of this encounter
--- OUTSIDE RECORDS SUMMARY | 2025-09-20 13:09 | XMS_ITS | Encounter Summary ---
Author Organization [facility] Address [facility] [place] [address] Care Team Providers Care Development Chemist Name Role Phone Aiden Harkins MD Primary Care Provider [phone] Encounter Details Date Type Department Care Team (Late st Contact Info) Description 03/10/2019 Abstract [facility] CONVERSION [address] [place] [address] , Generic Conversion, Social History Tobacco Use [...] on filedocumented in this encounter Care Teams Development Chemist Relationship Specialty Start Date End Date Aiden Harkins MD [address] [place] [phone] PCP - General INTERNAL MEDICINE 01/23/19 documented as of this encounter
[2025-09-20 13:26] LABS: Hematocrit 38.8 % (35.0-49.0); Hemoglobin 12.1 g/dL (12.0-15.0); Mean Corpuscular HGB Conc 31.2 g/dL (32-36); Mean Corpuscular Hemoglobin 26.4 pg (27.0-31.0); Mean Corpuscular Volume 84.7 fL (78.0-102.0); Platelet Count Result 472 K/mm3 (150-420); Red Blood Count 4.58 M/mm3 (4.20-5.40); White Blood Count 8.3 K/mm3 (4.8-10.8)
[2025-09-20 13:36] LABS: Hemoglobin A1C 5.5 % (<5.7)
[2025-09-20 13:53] LABS: Alanine Aminotransferase 13 U/L (6-35); Albumin Level 4.0 g/dL (3.5-5.1); Alkaline Phosphatase 106 U/L (38-126); Anion Gap 11 mmol/L (4-12); Aspartate Amino Transferase 21 U/L (14-36); Bilirubin,Total 0.3 mg/dL (0.2-1.3); Blood Urea Nitrogen 13 mg/dL (7-17); Calcium 8.9 mg/dL (8.4-10.2); Carbon Dioxide 27 mmol/L (22-30); Chloride 101 mmol/L (98-107); Cholesterol 128 mg/dL (0-200); Estimated Glomerular Filt Rate 56; Glucose 225 mg/dL (65-110); HDL Direct 64 mg/dL; Osmolality Calculated 295 mOsm/kg (285-295); Potassium 3.9 mmol/L (3.4-5.0); Sodium 139 mmol/L (137-145); Total Protein 7.9 g/dL (6.3-8.2); Triglycerides 203 mg/dL (<150)
[2025-09-20 14:01] LABS: NT Pro B Type Natriuretic Pept 109 pg/mL (19.9-100)
[2025-09-20 14:22] LABS: Thyroid Stimulating Hormone 1.750 uIU/mL (0.465-4.680)
== END 2025-09-20 13:05 | disposition home or self-care (01) ==
PROVIDERS: PCP Internal Medicine; Visit Provider Internal Medicine
DX: R06.00 Dyspnea, unspecified (principal); R07.9 Chest pain, unspecified; E11.9 Type 2 diabetes mellitus without complications
CPT/HCPCS: 36415; 80053; 80061; 83036; 83880; 84443; 85027